=== PATIENT | female | born 1940 | race Caucasian/White ===

== ENCOUNTER 2016-10-06 11:26 | Day surgery (SDC) | payer MEDICARE, BC ==
[2016-10-06] MEDS ORDERED: LIDOCAINE 2% MDV (20MG/ML) 20ML VIAL IV ONE (14:00)
[2016-10-06] MEDS ORDERED: PROPOFOL 10 MG/ML VIAL IV ONE (14:00)
--- NOTE | 2016-10-10 10:24 | Operative Note ---
DATE OF SURGERY: 10/06/2016 Surgeon: Silvano Bray DO Referring physician: Harish Crook DO PREOPERATIVE DIAGNOSIS: Personal history of colon cancer POSTOPERATIVE DIAGNOSES: 1. Fair prep. 2. Sigmoid polyps x2. 3. Normal-appearing anastomosis. OPERATION: COLONOSCOPY AND COLD SNARE POLYPECTOMY X2 PROCEDURE: After informed consent was obtained with the patient, she was placed in the lateral decubitus position in the endoscopy suite, sedated and monitored by the Department of Anesthesia. Digital rectal exam was unremarkable. A well-lubricated PCF 180 colonoscope was inserted in the rectum and advanced through a tortuous colon to the level of the ileocolonic anastomosis. The anastomosis appeared unremarkable. The remaining right colon, transverse colon, and descending colon were unremarkable. The colon was quite tortuous and somewhat redundant. The preparation quality was fair. In the sigmoid colon there were two polyps; one approximately 4 to 5 mm in diameter, the other 5 to 6 mm in diameter, each removed with a cold snare with minimal bleeding noted at the sites. The remainder of the sigmoid colon and rectum were unremarkable. J-turn views of the anorectum were unremarkable. The endoscope was straightened, the rectal ampulla deflated. The endoscope was removed. RECOMMENDATIONS: The patient will require a repeat exam in 3 years for continued surveillance. That is, she should undergo repeat exam provided her health will allow. As always, thank you for allowing me to participate in the care of your patient. CC: Dr. Silvano ANDERSON
== END 2016-10-06 13:16 | disposition home or self-care (01) ==
LOC: HOP 11:26
PROVIDERS: ATTEND Internal Medicine Gastroenterology
DX: Z09 Encounter for follow-up examination after completed treatment for conditions other than malignant neoplasm (principal); D12.5 Benign neoplasm of sigmoid colon; J44.9 Chronic obstructive pulmonary disease, unspecified; E03.9 Hypothyroidism, unspecified

== ENCOUNTER 2017-07-08 11:39 | Observation (INO) | payer MEDICARE, BC ==
[2017-07-08] MEDS ORDERED: IPRATROPIUM/ALBUTEROL (0.5MG/3MG) NEB INH ONE (12:34)
[2017-07-08] MEDS ORDERED: PREDNISONE 20 MG TAB PO ONE (12:35)
--- NOTE | 2017-07-08 12:40 | Emergency Department Record ---
History of Present Illness - General Chief Complaint: Cough Stated Complaint: COUGH Time Seen by Provider: 07/08/17 12:21 Source: Patient Mode of Arrival: Ambulatory Limitations: No limitations - History of Present Illness Initial Comments: The patient is here due to a cough off and on for about 2 months. She has seen her PCP twice for it and first was placed on Prednisone and then last week was given AMoxicillin. Now for the last week the cough seems worse with an increased amount of green sputum. She denies any CP, fever, chills, or nausea but has been mildly SOB and very weak. MD Complaint: Cough Onset/Timin -: Month(s) - Related Data Home Medications Medication Instructions Recorded Confirmed Last Taken Albuterol Sulfate [Ventolin Hfa] 1 - 2 puff IH .EVERY 4-6 HRS PRN 07/08/1707/0807/08/17 11:00 Ipratropium/Albuterol [Duoneb] PRN 07/08/17 07/04/17 Allergies Allergy/AdvReac Type Severity Reaction Status Date / Time azithromycin Allergy Unknown DIFFICULTY Verified 07/08/17 12:09 BREATHING cefuroxime axetil Allergy Unknown DIFFICULTY Verified 07/08/17 12:09 BREATHING clarithromycin Allergy Unknown DIFFICULTY Verified 07/08/17 12:09 BREATHING codeine Allergy Unknown BLISTERS Verified 07/08/17 12:09 erythromycin base Allergy Unknown DIFFICULTY Verified 07/08/17 12:09 BREATHING hydromorphone HCl Allergy Unknown DIFFICULTY Verified 07/08/17 12:09 [From DILAUDID] BREATHING Allergies: Allergy Unknown DIFFICULTY Uncoded 05/23/16 15:40 BREATHING Travel Screening - Travel/Exposure Within Last 30 Days Have you traveled within the last 30 days?: No Review of Systems Constitutional: Reports: Malaise. Denies: Chills, Fever, Other ENT: Reports: Congestion Respiratory: Reports: Cough, Dyspnea Past Medical History - SOCIAL HISTORY Smoking Status: Former smoker Alcohol Use: None Drug Use: None - RESPIRATORY Hx Respiratory Disorders: Yes Hx Asthma: Yes Hx Bronchitis: Yes Hx COPD: Yes - CARDIOVASCULAR Hx Cardio Disorders: No - NEURO Hx Neuro Disorders: No - GI Hx GI Disorders: No - Hx Genitourinary Disorders: No - ENDOCRINE Hx Endocrine Disorders: Yes Hx Thyroid Disease: Yes - MUSCULOSKELETAL Hx Musculoskeletal Disorders: No - PSYCH Hx Psych Problems: No - HEMATOLOGY/ONCOLOGY Hx Hematology/Oncology Disorders: Yes Hx Cancer: Yes (colon) Family Medical History Any Significant Family History?: No Physical Exam - General General Appearance: Alert, Oriented x3, Cooperative, No acute distress - Head Head exam: Atraumatic, Normocephalic, Normal inspection - Eye Eye exam: Normal appearance, PERRL - ENT Throat exam: Normal inspection. negative: Tonsillar erythema, Tonsillar exudate - Neck Neck exam: Normal inspection, Full ROM. negative: Tenderness - Respiratory Respiratory exam: Decreased breath sounds. negative: Normal lung sounds bilaterally, Rhonchi, Stridor, Wheezes - Cardiovascular Cardiovascular Exam: Regular rate, Normal rhythm, Normal heart sounds - GI/Abdominal GI/Abdominal exam: Soft, Normal bowel sounds. negative: Tenderness - Extremities Extremities exam: Normal inspection, Full ROM, Normal capillary refill. negative: Tenderness Course Vital Signs 07/08/17 12:06 Temperature 99.1 F Pulse Rate 87 Respiratory 22 Rate Blood Pressure 149/81 Pulse Ox 98 - Reevaluation(s) Reevaluation #1: The patient is doing OK but still is very weak. I did discuss the finding on her lab work that her sodium is very low. Due to that fact we will order some IVF and will discuss admitting the patient with Dr. Crook. 07/08/17 13:18 Reevaluation #2: I did discuss the case with Dr. Crook and he did accept the admission. 07/08/17 13:27 Medical Decision Making - Data Complexity MDM Data: Labs Ordered and/or Reviewed, X-Ray Ordered and/or Reviewed, EKG Ordered and/or Reviewed - Lab Data Result diagrams: 07/08/17 12:45 07/08/17 12:45 - EKG Data -: EKG Interpreted by Me EKG: No Acute Changes (RSR' V1-2. Neg ischemic changes.) - Radiology Data Radiology results: Report reviewed (CXR: COPD, no acute infiltrate.) Disposition Disposition: Admit Clinical Impression: COPD exacerbation Disposition: Still a Patient at [facility] Decision to Admit: Admit from ER Decision to Admit Date: 07/08/17 Decision to Admit Time: 13:28 Accepting Physician: Ambreen Time Discussed w/Accepting Physician: 13:28 Condition: (2) Stable Time of Disposition: 13:28 Quality - Quality Measures Quality Measures: N/A - Blood Pressure Screening View Details: Yes Does Patient Have Any of the Following: No Blood Pressure Classification: Pre-Hypertensive BP Reading Systolic Measurement: 149 Diastolic Measurement: 81 Screening for High Blood Pressure: < Pre-Hypertensive BP, F/U Documented > [ G8950] Pre-Hypertensive Follow-up Interventions: Referral to alternative/primary care provider.
[2017-07-08 12:54] LABS: BASO % 0.2 % (0-6); EOS % 1.6 % (0-6); GRAN % 74.6 % (47-80); HEMATOCRIT 39.4 % (35.0-47.0); HEMOGLOBIN 13.1 gm/dl (11.6-16.0); LYMPH % 12.4 % (16-45); MEAN CELL VOLUME 81.9 fl (81-97); MEAN CORPUSCULAR HEMOGLOBIN 27.2 pg (27-33); MEAN CORPUSCULAR HGB CONC 33.2 g/dl (32-36); MONO % 11.2 % (0-9); PLATELET COUNT 287 K/uL (130-400); RED BLOOD COUNT 4.81 M/uL (3.80-5.40)
[2017-07-08 13:04] LABS: BLOOD UREA NITROGEN 11 mg/dL (8-23); CREATININE 0.5 mg/dL (0.5-0.9); EST GLOMERULAR FILTRATION RATE > 60 mL/min
[2017-07-08 13:06] LABS: GLUCOSE,RANDOM 93 mg/dL (74-109)
[2017-07-08 13:09] LABS: C-REACTIVE PROTEIN 2.08 mg/dL (<0.5)
[2017-07-08] MEDS ORDERED: 0.9 % SODIUM CHLORIDE 1000ML 1,000 ML IV ONE (13:20)
[2017-07-08] MEDS ORDERED: LEVOFLOXACIN 500MG IVPB 500 MG/100 ML BAG IVPB SCH (14:40)
[2017-07-08] MEDS ORDERED: BENZONATATE 100 MG CAPSULE PO PRN (14:40)
[2017-07-08] MEDS ORDERED: ACETAMINOPHEN 500 MG TABLET PO PRN (14:40)
[2017-07-08] MEDS ORDERED: IPRATROPIUM/ALBUTEROL (0.5MG/3MG) NEB INH SCH (14:40)
[2017-07-08] MEDS: 0.9 % SODIUM CHLORIDE 1000ML 1,000 ML IV PRN (15:00)
[2017-07-08] MEDS ORDERED: ARNUITY (FLUTICASONE FUROATE) 100MCG INH INH SCH (18:00)
[2017-07-08] MEDS: IPRATROPIUM/ALBUTEROL (0.5MG/3MG) NEB INH SCH ×2 (19:55→22:31)
[2017-07-08] MEDS ORDERED: FLUTICASONE PROPIONATE 220 MCG IH SCH (22:00)
[2017-07-09] MEDS: 0.9 % SODIUM CHLORIDE 1000ML 1,000 ML IV PRN (01:37)
[2017-07-09] MEDS ORDERED: ARNUITY (FLUTICASONE FUROATE) 100MCG INH INH SCH (06:00)
[2017-07-09] MEDS: IPRATROPIUM/ALBUTEROL (0.5MG/3MG) NEB INH SCH ×2 (06:13→10:03)
[2017-07-09 06:33] LABS: HEMATOCRIT 33.9 % (35.0-47.0); MEAN CELL VOLUME 82.1 fl (81-97); MEAN CORPUSCULAR HEMOGLOBIN 26.6 pg (27-33); MEAN CORPUSCULAR HGB CONC 32.4 g/dl (32-36); PLATELET COUNT 266 K/uL (130-400); RED BLOOD COUNT 4.13 M/uL (3.80-5.40); RED CELL DISTRIBUTION WIDTH 13.7 % (11.5-14.5); WHITE BLOOD COUNT W/O DIFF 12.2 K/uL (4.2-12.2)
[2017-07-09 06:53] LABS: ALBUMIN 3.3 g/dL (4.0-5.0); ALKALINE PHOSPHATASE 63 U/L (35-104); ALT/SGPT 12 U/L (<33); AST/SGOT 19 U/L (10.0-35.0); BLOOD UREA NITROGEN 12 mg/dL (8-23); CREATININE 0.5 mg/dL (0.5-0.9); EST GLOMERULAR FILTRATION RATE > 60 mL/min; GLUCOSE,RANDOM 106 mg/dL (74-109); TOTAL PROTEIN 6.6 g/dL (6.6-8.7)
[2017-07-09] MEDS ORDERED: LEVOTHYROXINE SODIUM 25 MCG TABLET PO SCH (07:00)
[2017-07-09] MEDS ORDERED: PREDNISONE 20 MG TAB PO SCH (08:00)
[2017-07-09] MEDS ORDERED: CALCIUM CARB/VITAMIN D 500MG/200IU PO SCH (10:00)
[2017-07-09] MEDS ORDERED: TIOTROPIUM BROMIDE 18 MCG IH SCH (10:00)
--- NOTE | 2017-07-09 13:09 | Discharge Note ---
VTE H&P Assessment - Risk for VTE Risk for VTE: No Risk Level: Very Low Risk Assessment Date: 07/09/17 Risk Assessment Time: 13:09 VTE Orders Placed or Will Be Placed: No VTE Reason for No Prophylaxis: Not Indicated Discharge Medications - Discharge Medications Prescriptions: Amoxicillin 500Mg Capsule [Amoxil] 500 mg PO TID #30 tab Prednisone [Prednisone 10Mg] 10 mg PO ASDIR #30 tab Home Medications: Ambulatory Orders Calcium Carbonate/Vitamin D3 [Caltrate 600 Plus D3 Tablet] 1 each PO DAILY tab 03/16/16 [Last Taken 05/23/16] Fluticasone Propionate [Flovent Hfa] 440 puff IH BID puff 03/16/16 [Last Taken 07/08/17 08:00] Tiotropium [place] [Spiriva] 18 mcg IH DAILY 03/16/16 [Last Taken 07/08/17 08:00 ] Levothyroxine Sodium [Synthroid] 25 mcg PO DAILY 05/23/16 [Last Taken 05/23/16] Albuterol Sulfate [Ventolin Hfa] 1 - 2 puff IH .EVERY 4-6 HRS PRN 07/08/17 [ Last Taken 07/08/17 11:00] Acetaminophen [Tylenol 500Mg Tab] 500 mg PO Q6H PRN tablet 07/09/17 [Last Taken Unknown] Amoxicillin 500Mg Capsule [Amoxil] 500 mg PO TID #30 tab 07/09/17 [Last Taken Unknown] Prednisone [Prednisone 10Mg] 10 mg PO ASDIR #30 tab 07/09/17 [Last Taken Unknown ] Discharge Note - Date Date of Discharge Note: 07/09/17 Condition: (2) Stable Referrals: Harish Crook D.O. [Primary Care Provider] - Forms: Patient Portal Access
--- NOTE | 2017-07-09 13:16 | Discharge Note ---
VTE H&P Assessment - Risk for VTE Risk for VTE: No Risk Level: Very Low Risk Assessment Date: 07/09/17 Risk Assessment Time: 13:09 VTE Orders Placed or Will Be Placed: No VTE Reason for No Prophylaxis: Not Indicated Discharge Medications - Discharge Medications Prescriptions: Amoxicillin 500Mg Capsule [Amoxil] 500 mg PO TID #30 tab Prednisone [Prednisone 10Mg] 10 mg PO ASDIR #30 tab Home Medications: Ambulatory Orders Calcium Carbonate/Vitamin D3 [Caltrate 600 Plus D3 Tablet] 1 each PO DAILY tab 03/16/16 [Last Taken 05/23/16] Fluticasone Propionate [Flovent Hfa] 440 puff IH BID puff 03/16/16 [Last Taken 07/08/17 08:00] Tiotropium [place] [Spiriva] 18 mcg IH DAILY 03/16/16 [Last Taken 07/08/17 08:00 ] Levothyroxine Sodium [Synthroid] 25 mcg PO DAILY 05/23/16 [Last Taken 05/23/16] Albuterol Sulfate [Ventolin Hfa] 1 - 2 puff IH .EVERY 4-6 HRS PRN 07/08/17 [ Last Taken 07/08/17 11:00] Acetaminophen [Tylenol 500Mg Tab] 500 mg PO Q6H PRN tablet 07/09/17 [Last Taken Unknown] Amoxicillin 500Mg Capsule [Amoxil] 500 mg PO TID #30 tab 07/09/17 [Last Taken Unknown] Benzonatate [Tessalon Perle] 100 mg PO TID PRN #30 cap 07/09/17 [Last Taken Unknown] Prednisone [Prednisone 10Mg] 10 mg PO ASDIR #30 tab 07/09/17 [Last Taken Unknown ] Discharge Note - Date Date of Discharge Note: 07/09/17 Condition: (2) Stable Prescriptions: Amoxicillin 500Mg Capsule [Amoxil] 500 mg PO TID #30 tab Benzonatate [Tessalon Perle] 100 mg PO TID PRN #30 cap PRN Reason: Cough Prednisone [Prednisone 10Mg] 10 mg PO ASDIR #30 tab Referrals: Harish Crook D.O. [Primary Care Provider] - Forms: Patient Portal Access
--- NOTE | 2017-07-09 18:57 | RADIOLOGY REPORT ---
EXAM: CHEST 2 VIEWS HISTORY: COUGH. TECHNIQUE: Frontal and lateral views of the chest were performed. COMPARISON: 05/23/2016. FINDINGS: The heart size is normal. The lungs are hyperinflated. There is underlying emphysema. No definitive infiltrate or pleural effusion. There is osteopenia. There are mild superior endplate compression fracture deformities in the thoracic spine. These are stable when compared to the prior exam. IMPRESSION: HYPERINFLATED LUNGS. NO DEFINITIVE INFILTRATE OR PLEURAL EFFUSION. JOB NUMBER: [id number] MTDD
--- NOTE | 2017-07-10 09:51 | History and Physical Report ---
DATE OF ADMISSION: 07/08/2017 Surgeon: Harish Crook DO CHIEF COMPLAINT: Cough, dyspnea, for approximately 3 to 4 days, but she has had a cough since , and she has been treated for bronchitis as an outpatient. She was started on amoxicillin 3 times a day on Monday, 4 days earlier. Came to the emergency department, evaluation by Dr. Rios, admitted to the hospital as an observation patient, started on oral Levaquin and oral prednisone, and given breathing treatments of DuoNeb every 4 hours while awake, and Tessalon Perles for the cough. PAST MEDICAL HISTORY: COPD. No oxygen home use. Hypothyroidism. She has had a history of colon cancer, being followed by Dr. Mcgee, under remission. PAST SURGICAL HISTORY: Colon resection, hysterectomy, lumpectomy, and hip surgery. MEDICATIONS ON ADMISSION: 1. Flovent inhaler 1 puff b.i.d. 2. Ventolin rescue inhaler 2 puffs q.4h. 3. Spiriva 1 puff daily. 4. Synthroid 25 mcg a day. 5. Calcium with vitamin D 1 tablet a day. 6. Tessalon Perles 100 mg 3 times a day. 7. Amoxicillin 500 mg t.i.d. 8. Albuterol nebulizer q.4h. p.r.n. ALLERGIES: AZITHROMYCIN, CEFUROXIME, CLARITHROMYCIN, CODEINE, ERYTHROMYCIN, DILAUDID. FAMILY PSYCHOSOCIAL HISTORY: No significant family history. She is a former smoker. She stopped in the year 1999. No drugs or alcohol use. REVIEW OF SYSTEMS: She has slight congestion and cough and no sore throat. CARDIOVASCULAR: No chest pain, palpitations, or arrhythmias. RESPIRATORY: She has a cough, she is short of breath with exertion. GASTROINTESTINAL: No nausea, vomiting, or diarrhea, black stools or bloody stools. GENITOURINARY: No dysuria, hematuria, frequency, or burning on urination. MUSCULOSKELETAL: She has diffuse arthritis in her joints, but ambulates around the room without difficulty. NEUROLOGIC: No CVA paralysis or paresthesias. ENDOCRINE: She has hypothyroidism. INTEGUMENT: No rash, ulcer, change in mole, or yellow skin. PHYSICAL EXAMINATION: GENERAL: Height is 5 feet 5 inches, weight is 91 pounds. VITAL SIGNS: Temperature is 98.0, blood pressure 103/55, pulse is 78, respirations are 18. Pulse OX is 95% on room air. HEENT: Pupils are equal, round, and reactive to light and accomodation. Extraocular muscles are intact. Throat is clear, nose is clear. Tympanic membranes are bee. NECK: Supple. No jugular venous distention, no hepatojugular reflux, no carotid bruits, thyroid is smooth. CARDIOVASCULAR: Regular rate and rhythm without murmurs, clicks, rubs, or gallops. RESPIRATORY: She has decreased breath sounds bilaterally. ABDOMEN: Soft, nontender, no hepatosplenomegaly, no mass or tenderness. Bowel sounds are active, no bruits. EXTREMITIES: No pitting edema, no cyanosis, no clubbing. Full range of motion. Peripheral pulses are good. BREASTS: Deferred. GYNECOLOGIC: Deferred. RECTAL: Deferred. NEUROLOGIC: Cranial nerves II through XII intact, no gross defects in sensation, normal strength, normal deep tendon reflexes equal bilaterally. Babinski's negative. MENTAL STATUS: Alert and oriented x3. IMPRESSION: 1. Acute bronchitis. 2. COPD. 3. Hyponatremia, which has resolved. Her sodium in the emergency department was 122, it is 136 this morning after a liter of fluid at 50 mL an hour. PLAN: 1. Follow up with Dr. Crook tomorrow on Monday at 10:00 a.m. We will discharge. She is doing better. 2. Prednisone taper starting at 40 mg a day for 3 days, 30 mg a day for 3 days, and 20 mg a day for 3 days, and 10 mg a day for 3 days. 3. Continue the amoxicillin 3 times a day. 4. Albuterol nebulizations q.4h. p.r.n. 5. Tessalon Perlrodrigo. 6. Continue all her home medications of Flovent, Spiriva. MTDD
--- NOTE | 2017-07-10 09:51 | Discharge Summary ---
DATE OF ADMISSION: 07/08/2017 DATE OF DISCHARGE: 07/09/2017 Observation patient. Attending physician: Harish Crook DO DISCHARGE DIAGNOSES: 1. Acute bronchitis. 2. COPD exacerbation. 3. Hyponatremia, resolved. REASON FOR HOSPITALIZATION: Cough, congestion, short of breath, evaluated by Dr. Rios in the emergency department. This 76-year-old female presented to the emergency department with a cough, congestion, short of breath, for the last 4 days, worse in the last week, however, she has had a cough on and off for about two months, and she had significant COPD. She stopped smoking in 1999. THERAPY PROVIDED: Response to therapy; the patient was given some prednisone orally 60 mg in the emergency department, 40 mg a day, Levaquin orally 500 mg, and admitted to the hospital for further evaluation and to correct her sodium, because her sodium was 122. She was given 1 liter of fluid and then 50 mL an hour through the night. Her sodium this morning was 136. She is feeling much better. She was also given DuoNeb treatments q.4h. while awake. HOSPITAL COURSE: Improved. CONDITION ON DISCHARGE: Much improved. DISCHARGE INSTRUCTIONS: 1. Follow up with Dr. Crook tomorrow at 10:00 a.m. 2. Continue the amoxicillin 500 mg t.i.d. 3. Prednisone taper 10 mg pills, 4 pills a day for 3 days, 3 pills a day for 3 days, 2 pills a day for 3 days, 1 pill a day for 3 days. 4. Flovent inhaler which she already has, twice a day. 5. Ventolin inhaler 2 puffs q.4h. or use the Albuterol nebulization q.4h. p.r.n. 6. Tessalon Perles 100 mg t.i.d. 7. Levothyroxine 25 mcg daily. 8. Spiriva once a day. 9. Calcium with vitamin D 1 a day. CC: Harish Crook DO MTDD
== END 2017-07-09 13:55 | disposition home or self-care (01) ==
LOC: ER 11:39 → MEDSURG 14:16
PROVIDERS: ADMIT Emergency Medicine; ATTEND Emergency Medicine
DX: J20.9 Acute bronchitis, unspecified (principal); J44.0 Chronic obstructive pulmonary disease with (acute) lower respiratory infection; E03.9 Hypothyroidism, unspecified; Z85.038 Personal history of other malignant neoplasm of large intestine; E87.1 Hypo-osmolality and hyponatremia; Z87.891 Personal history of nicotine dependence
CPT/HCPCS: 99285 ×2; 85025; 86140; 80048; 80053; 84443; 85027; 71046; 94640 ×4; 93005; 93010; G0378 ×2; J7512 ×2; 99220; J1956

== ENCOUNTER 2017-07-10 06:18 | Inpatient (IN) | payer MEDICARE, BC ==
[2017-07-10] MEDS ORDERED: IPRATROPIUM/ALBUTEROL (0.5MG/3MG) NEB INH ONE (06:33)
[2017-07-10 06:34] LABS: HEMATOCRIT 36.5 % (35.0-47.0); MEAN CORPUSCULAR HGB CONC 32.9 g/dl (32-36); MEAN PLATELET VOLUME 8.9 fl (7.4-10.4); PLATELET COUNT 275 K/uL (130-400); RED BLOOD COUNT 4.45 M/uL (3.80-5.40); RED CELL DISTRIBUTION WIDTH 14.2 % (11.5-14.5); WHITE BLOOD COUNT W/O DIFF 15.1 K/uL (4.2-12.2)
[2017-07-10 06:43] LABS: BLOOD UREA NITROGEN 17 mg/dL (8-23); CREATININE 0.5 mg/dL (0.5-0.9); EST GLOMERULAR FILTRATION RATE > 60 mL/min; TOTAL PROTEIN 7.2 g/dL (6.6-8.7)
[2017-07-10 06:45] LABS: GLUCOSE,RANDOM 98 mg/dL (74-109)
[2017-07-10 06:48] LABS: ALB/GLOB RATIO 1.1 (1.1-1.8); ALBUMIN 3.8 g/dL (4.0-5.0); ALKALINE PHOSPHATASE 62 U/L (35-104); ALT/SGPT 14 U/L (<33); AST/SGOT 22 U/L (10.0-35.0)
--- NOTE | 2017-07-10 06:49 | Emergency Department Record ---
History of Present Illness <Russell Rios - Last Filed: 07/10/17 07:53> - General Source: Patient Mode of Arrival: EMS Limitations: No limitations - History of Present Illness Initial Comments: 76 yo female returns to ED for evaluation of worsening VALENTE following recent admission and discharge for COPD exacerbation. Patient reports increased cough and fever symptoms this morning. Patient denies chest pain or discomfort, denies the use of oxygen at home. MD Complaint: Cough, Shortness of breath Onset/Timin -: Hour(s) Severity scale (1-10): 9 Quality: Aching Consistency: Intermittent Improves With: Rest Worsens With: Coughing Known History Of: COPD Associated Symptoms: Denies other symptoms Treatments Prior to Arrival: Oxygen - Related Data Home Oxygen Therapy: No <OWEN CAMARGO - Last Filed: 07/10/17 22:04> - General Chief Complaint: Shortness of breath Stated Complaint: VALENTE Time Seen by Provider: 07/10/17 06:38 - Related Data Previous Rx's Medication Instructions Recorded Acetaminophen [Tylenol 500Mg Tab] 500 mg PO Q6H PRN tablet 07/09/17 Amoxicillin 500Mg Capsule [Amoxil] 500 mg PO TID #30 tab 07/09/17 Benzonatate [Tessalon Perle] 100 mg PO TID PRN #30 cap 07/09/17 Prednisone [Prednisone 10Mg] 10 mg PO ASDIR #30 tab 07/09/17 Allergies Allergy/AdvReac Type Severity Reaction Status Date / Time azithromycin Allergy Unknown DIFFICULTY Verified 07/08/17 12:09 BREATHING cefuroxime axetil Allergy Unknown DIFFICULTY Verified 07/08/17 12:09 BREATHING clarithromycin Allergy Unknown DIFFICULTY Verified 07/08/17 12:09 BREATHING codeine Allergy Unknown BLISTERS Verified 07/08/17 12:09 erythromycin base Allergy Unknown DIFFICULTY Verified 07/08/17 12:09 BREATHING hydromorphone HCl Allergy Unknown DIFFICULTY Verified 07/08/17 12:09 [From DILAUDID] BREATHING Allergies: Allergy Unknown DIFFICULTY Uncoded 05/23/16 15:40 BREATHING Travel Screening - Travel/Exposure Within Last 30 Days Have you traveled within the last 30 days?: No - Travel Symptoms Symptom Screening: None <OWEN CAMARGO - Last Filed: 07/10/17 22:04> Review of Systems Constitutional: Reports: Chills, Fever. Denies: Malaise, Night sweats Eyes: Denies: Eye discharge, Eye pain ENT: Denies: Congestion, Ear pain, Epistaxis Respiratory: Reports: Cough, Dyspnea Cardiovascular: Denies: Chest pain, Dyspnea on exertion, Edema Endocrine: Denies: Fatigue, Heat or cold intolerance Gastrointestinal: Denies: Abdominal pain, Nausea, Vomiting Genitourinary: Denies: Incontinence, Retention Musculoskeletal: Denies: Arthralgia, Back pain, Gout, Joint swelling Skin: Denies: Bruising, Change in color Neurological: Denies: Abnormal gait, Confusion, Headache, Seizure Psychiatric: Denies: Anxiety Hematological/Lymphatic: Denies: Anemia, Blood Clots <OWEN CAMARGO - Last Filed: 07/10/17 22:04> Past Medical History - SOCIAL HISTORY Smoking Status: Former smoker - RESPIRATORY Hx Respiratory Disorders: Yes Hx Asthma: Yes Hx Bronchitis: Yes Hx COPD: Yes - CARDIOVASCULAR Hx Cardio Disorders: No - NEURO Hx Neuro Disorders: No - GI Hx GI Disorders: No Comment:: colon CA-removed 12 inches and did oral chemo - Hx Genitourinary Disorders: No - ENDOCRINE Hx Endocrine Disorders: Yes Hx Thyroid Disease: Yes - MUSCULOSKELETAL Hx Musculoskeletal Disorders: No - PSYCH Hx Psych Problems: No - HEMATOLOGY/ONCOLOGY Hx Hematology/Oncology Disorders: Yes Hx Cancer: Yes (colon) <OWEN CAMARGO - Last Filed: 07/10/17 22:04> Family Medical History Any Significant Family History?: Yes Hx Heart Disease: Father, Mother, Brother/Sister Hx HTN: Mother <OWEN CAMARGO - Last Filed: 07/10/17 22:04> Physical Exam - General General Appearance: Alert, Oriented x3, Cooperative, Moderate distress, Other ( cachetic appearing on examination) Limitations: No limitations - Head Head exam: Atraumatic, Normocephalic, Normal inspection Head exam detail: negative: Abrasion, Contusion - Eye Eye exam: Normal appearance. negative: Conjunctival injection, Periorbital swelling, Periorbital tenderness, Scleral icterus - ENT Ear exam: negative: Auricular hematoma, Auricular trauma Nasal Exam: negative: Active bleeding, Discharge, Dried blood, Foreign body Mouth exam: negative: Drooling, Laceration, Muffled voice, Tongue elevation - Neck Neck exam: Normal inspection. negative: Meningismus, Tenderness - Respiratory Respiratory exam: Decreased breath sounds, Respiratory distress. negative: Rales, Rhonchi, Stridor, Wheezes - Cardiovascular Cardiovascular Exam: Regular rate, Normal rhythm, Normal heart sounds - GI/Abdominal GI/Abdominal exam: Soft. negative: Rebound, Rigid, Tenderness - Rectal Rectal exam: Deferred - exam: Deferred - Extremities Extremities exam: Normal inspection. negative: Calf tenderness, Pedal edema, Tenderness - Back Back exam: Denies: CVA tenderness (R), CVA tenderness (L) - Neurological Neurological exam: Alert, Normal gait, Oriented X3 - Psychiatric Psychiatric exam: Normal affect, Normal mood - Skin Skin exam: Normal color. negative: Abrasion Type of lesion: negative: abrasion <OWEN CAMARGO - Last Filed: 07/10/17 22:04> Course Vital Signs 07/10/17 07/10/17 06:22 06:50 Temperature 101.5 F H Pulse Rate 98 H 108 H Respiratory 20 20 Rate Blood Pressure 127/69 Pulse Ox 95 94 L - Reevaluation(s) Reevaluation #2: The patient is doing better but is still coughing. Her fever has improved with Tylenol. On xray it does appear that she does now have a demonstrable infiltrate at the L base and possibly the R also. Due to that fact and also that her cough and fever are worse I did recommend hospital admission and the patient agreed. I did discuss the case with Dr. Crook and he does agree to the plan for admission. 07/10/17 07:54 <Russell Rios - Last Filed: 07/10/17 07:53> Vital Signs 07/10/17 06:22 Temperature 101.5 F H Pulse Rate 98 H Respiratory 20 Rate Blood Pressure 127/69 Pulse Ox 95 - Reevaluation(s) Reevaluation #1: 07/10/17 06:47 Patient was seen and examined, initial orders placed. Case was discussed with oncoming provider, will assume care and disposition at this time. <OWEN CAMARGO - Last Filed: 07/10/17 22:04> Medical Decision Making - Data Complexity MDM Data: Labs Ordered and/or Reviewed, X-Ray Ordered and/or Reviewed, EKG Ordered and/or Reviewed - Lab Data Result diagrams: 07/10/17 06:29 07/10/17 06:29 Lab Results 02/05/1507/10/17 07/10/17 Range/Units 06:29 06:29 06:29 WBC 15.1 H (4.2-12.2) K/uL RBC 4.45 (3.80-5.40) M/uL Hgb 12.0 (11.6-16.0) gm/dl Hct 36.5 (35.0-47.0) % MCV 82.0 (81-97) fl MCH 27.0 (27-33) pg MCHC 32.9 (32-36) g/dl RDW 14.2 (11.5-14.5) % Plt Count 275 (130-400) K/uL MPV 8.9 (7.4-10.4) fl Neutrophils % 82.0 H (47-80) % Band Neutrophils % 2.0 (0-5) % Eosinophils % Not Reportable Basophils % Not Reportable Lymphocytes 6.0 L (16-45) % Monocytes 10.0 H (0-9) % Basophils 0.0 (0-6) % Eosinophil Count 0.0 (0-6) % Sodium 131 L (136-145) mmol/L Potassium 4.0 (3.4-4.5) mmol/L Chloride 96 L (98-107) mmol/L Carbon Dioxide 23.0 (22-29) mmol/L Anion Gap 12.0 (7-16) BUN 17 (8-23) mg/dL Creatinine 0.5 (0.5-0.9) mg/dL Estimated GFR > 60 mL/min Random Glucose 98 (74-109) mg/dL Calcium 8.6 L (8.8-10.2) mg/dL Total Bilirubin 0.30 (0.2-1.0) mg/dL AST 22 (10.0-35.0) U/L ALT 14 (<33) U/L Alkaline Phosphatase 62 (35-104) U/L Troponin T < 0.010 (0-0.010) ng/mL Total Protein 7.2 (6.6-8.7) g/dL Albumin 3.8 L (4.0-5.0) g/dL Globulin 3.4 (1.4-4.8) gm/dL Albumin/Globulin Ratio 1.1 (1.1-1.8) Influenza Type A Ag (NEGATIVE) Influenza Type B Ag (NEGATIVE) 07/10/17 Range/Units 06:43 WBC (4.2-12.2) K/uL RBC (3.80-5.40) M/uL Hgb (11.6-16.0) gm/dl Hct (35.0-47.0) % MCV (81-97) fl MCH (27-33) pg MCHC (32-36) g/dl RDW (11.5-14.5) % Plt Count (130-400) K/uL MPV (7.4-10.4) fl Neutrophils % (47-80) % Band Neutrophils % (0-5) % Eosinophils % Basophils % Lymphocytes (16-45) % Monocytes (0-9) % Basophils (0-6) % Eosinophil Count (0-6) % Sodium (136-145) mmol/L Potassium (3.4-4.5) mmol/L Chloride (98-107) mmol/L Carbon Dioxide (22-29) mmol/L Anion Gap (7-16) BUN (8-23) mg/dL Creatinine (0.5-0.9) mg/dL Estimated GFR mL/min Random Glucose (74-109) mg/dL Calcium (8.8-10.2) mg/dL Total Bilirubin (0.2-1.0) mg/dL AST (10.0-35.0) U/L ALT (<33) U/L Alkaline Phosphatase (35-104) U/L Troponin T (0-0.010) ng/mL Total Protein (6.6-8.7) g/dL Albumin (4.0-5.0) g/dL Globulin (1.4-4.8) gm/dL Albumin/Globulin Ratio (1.1-1.8) Influenza Type A Ag Negative (NEGATIVE) Influenza Type B Ag Negative (NEGATIVE) - EKG Data -: EKG Interpreted by Me EKG: No Acute Changes, Unchanged From Previous - Radiology Data Radiology results: Report reviewed (CXR: L lower lob inifltrate with possible early RLL infiltrate.) <Russell Rios - Last Filed: 07/10/17 07:53> - Lab Data Result diagrams: 07/10/17 06:29 07/10/17 06:29 Lab Results 07/10/17 Range/Units 06:29 WBC 15.1 H (4.2-12.2) K/uL RBC 4.45 (3.80-5.40) M/uL Hgb 12.0 (11.6-16.0) gm/dl Hct 36.5 (35.0-47.0) % MCV 82.0 (81-97) fl MCH 27.0 (27-33) pg MCHC 32.9 (32-36) g/dl RDW 14.2 (11.5-14.5) % Plt Count 275 (130-400) K/uL MPV 8.9 (7.4-10.4) fl Neutrophils % 82.0 H (47-80) % Band Neutrophils % 2.0 (0-5) % Eosinophils % Not Reportable Basophils % Not Reportable Lymphocytes 6.0 L (16-45) % Monocytes 10.0 H (0-9) % Basophils 0.0 (0-6) % Eosinophil Count 0.0 (0-6) % <OWEN CAMARGO - Last Filed: 07/10/17 22:04> Disposition Disposition: Admit Decision to Admit: Admit from ER Decision to Admit Date: 07/10/17 Decision to Admit Time: 07:56 Accepting Physician: Ambreen Time Discussed w/Accepting Physician: 07:56 Time of Disposition: 07:56 <Russell Rios - Last Filed: 07/10/17 07:53> <OWEN CAMARGO - Last Filed: 07/10/17 22:04> Clinical Impression: Pneumonia Qualifiers: Pneumonia type: due to unspecified organism Laterality: unspecified laterality Lung location: unspecified part of lung Qualified Code(s): J18.9 - Pneumonia, unspecified organism Disposition: Home, Self-Care Condition: (2) Stable Quality - Blood Pressure Screening Does Patient Have Any of the Following: No Blood Pressure Classification: Pre-Hypertensive BP Reading Systolic Measurement: 127 Diastolic Measurement: 69 Screening for High Blood Pressure: < Pre-Hypertensive BP, F/U Documented > [ G8950] <Russell Rios - Last Filed: 07/10/17 07:53> - Quality Measures Quality Measures: N/A - Blood Pressure Screening Blood Pressure Classification: Pre-Hypertensive BP Reading Systolic Measurement: 127 Diastolic Measurement: 69 Screening for High Blood Pressure: < Pre-Hypertensive BP, F/U Documented > [ G8950] Pre-Hypertensive Follow-up Interventions: Referral to alternative/primary care provider. <OWEN CAMARGO - Last Filed: 07/10/17 22:04>
[2017-07-10] MEDS ORDERED: ACETAMINOPHEN 325 MG TAB PO ONE (06:51)
[2017-07-10 06:59] LABS: INFLUENZA A NEGATIVE (NEGATIVE); INFLUENZA B NEGATIVE (NEGATIVE)
[2017-07-10] MEDS ORDERED: CEFTRIAXONE SODIUM 1 GM in 0.9 % SODIUM CHLORIDE 100ML 100 ML IVPB ONE (07:37)
[2017-07-10] MEDS ORDERED: LEVOFLOXACIN/D5W 750 MG/150 ML BAG IVPB ONE (07:38)
--- NOTE | 2017-07-10 08:36 | RADIOLOGY REPORT ---
EXAM: CHEST, TWO VIEWS HISTORY: WOKE WITH COUGH, CHEST PAIN, AND DIFFICULTY IN BREATHING. TECHNIQUE: Upright AP and lateral views of the chest were obtained. Comparison: Two view chest radiographic examination dated 07/08/17 at 13:01. FINDINGS: The heart is not enlarged. No pulmonary venous hypertension is seen. The aortic knob is atherosclerotic. The lungs are hyperinflated consistent with COPD. There are new mixed reticular and alveolar opacities within the left lung base most pronounced in the retrocardiac region suspicious for infiltrate or atelectasis. New subtle reticulonodular opacities are also noted within the right base. No definite new costophrenic angle blunting or pneumothorax. IMPRESSION: 1. HYPERINFLATION OF THE LUNGS REDEMONSTRATED CONSISTENT WITH COPD. 2. NEW AIR SPACE OPACITIES WITHIN THE LEFT LUNG BASES SUSPICIOUS FOR PNEUMONIA AND/OR ATELECTASIS. NEW SUBTLE RETICULONODULAR OPACITY PROMINENCE WITHIN THE LATERAL RIGHT LUNG BASE. THIS PATTERN CAN BE SEEN WITH INFLAMMATION/INFECTION OF SMALL AIRWAYS. JOB NUMBER: [id number] MTDD
[2017-07-10] MEDS ORDERED: BENZONATATE 100 MG CAPSULE PO PRN (08:46)
[2017-07-10] MEDS ORDERED: 0.9 % SODIUM CHLORIDE 1000ML 1,000 ML IV PRN (08:46)
[2017-07-10] MEDS ORDERED: ACETAMINOPHEN 500 MG TABLET PO PRN (08:46)
[2017-07-10] MEDS ORDERED: PNEUM 13-VAL/PF 0.5 ML IM ONE (09:31)
[2017-07-10] MEDS ORDERED: TIOTROPIUM BROMIDE 18 MCG IH SCH (10:00)
[2017-07-10] MEDS ORDERED: METHYLPREDNISOLONE PF 125MG/VIAL IVP SCH (10:00)
[2017-07-10] MEDS: ARNUITY (FLUTICASONE FUROATE) 100MCG INH INH SCH (10:41)
[2017-07-10] MEDS: IPRATROPIUM/ALBUTEROL (0.5MG/3MG) NEB INH SCH ×4 (10:41→22:09)
[2017-07-10 11:16] LABS: URINE APPEARANCE CLEAR; URINE BILIRUBIN NEGATIVE (NEGATIVE); URINE BLOOD NEGATIVE (NEGATIVE); URINE COLOR YELLOW; URINE GLUCOSE (UA) NEGATIVE (NEGATIVE); URINE KETONE NEGATIVE (NEGATIVE); URINE LEUKOCYTE ESTERASE NEGATIVE (NEGATIVE); URINE NITRITE NEGATIVE (NEGATIVE); URINE PROTEIN NEGATIVE (NEGATIVE); URINE UROBILINOGEN 0.2 E.U./dL (0.20 - 1.00)
[2017-07-10] MEDS: METHYLPREDNISOLONE SOD 40MG/VIAL IVP SCH ×2 (11:29→22:03)
[2017-07-10] MEDS: LEVOTHYROXINE SODIUM 25 MCG TABLET PO SCH (11:30)
[2017-07-10] MEDS: 0.9 % SODIUM CHLORIDE 1000ML 1,000 ML IV ONE (14:46)
[2017-07-11] MEDS: IPRATROPIUM/ALBUTEROL (0.5MG/3MG) NEB INH SCH ×5 (05:57→21:36)
[2017-07-11] MEDS: LEVOTHYROXINE SODIUM 25 MCG TABLET PO SCH (06:12)
[2017-07-11] MEDS: METHYLPREDNISOLONE SOD 40MG/VIAL IVP SCH ×3 (06:12→22:55)
[2017-07-11 06:44] LABS: BASO % 0.1 % (0-6); HEMATOCRIT 38.7 % (35.0-47.0); HEMOGLOBIN 12.6 gm/dl (11.6-16.0); LYMPH % 6.6 % (16-45); MEAN CELL VOLUME 82.7 fl (81-97); MEAN CORPUSCULAR HEMOGLOBIN 26.9 pg (27-33); MEAN CORPUSCULAR HGB CONC 32.6 g/dl (32-36); MEAN PLATELET VOLUME 9.2 fl (7.4-10.4); MONO % 3.7 % (0-9); PLATELET COUNT 279 K/uL (130-400); RED BLOOD COUNT 4.68 M/uL (3.80-5.40); RED CELL DISTRIBUTION WIDTH 14.3 % (11.5-14.5); WHITE BLOOD COUNT W/O DIFF 12.2 K/uL (4.2-12.2)
[2017-07-11 07:00] LABS: PLATELET ESTIMATE NORMAL (NORMAL)
[2017-07-11 07:06] LABS: ALBUMIN 3.7 g/dL (4.0-5.0); ALKALINE PHOSPHATASE 78 U/L (35-104); ALT/SGPT 16 U/L (<33); AST/SGOT 23 U/L (10.0-35.0); BLOOD UREA NITROGEN 13 mg/dL (8-23); CREATININE 0.5 mg/dL (0.5-0.9); EST GLOMERULAR FILTRATION RATE > 60 mL/min; GLUCOSE,RANDOM 142 mg/dL (74-109); TOTAL PROTEIN 7.4 g/dL (6.6-8.7)
[2017-07-11] MEDS ORDERED: LEVOFLOXACIN/D5W 750 MG/150 ML BAG IVPB SCH (08:00)
[2017-07-11] MEDS: LEVOFLOXACIN 500MG IVPB 500 MG/100 ML BAG IVPB SCH (08:03)
[2017-07-11] MEDS: ARNUITY (FLUTICASONE FUROATE) 100MCG INH INH SCH (10:37)
[2017-07-11] MEDS ORDERED: DIPHENHYDRAMINE HCL 25 MG CAPSULE PO PRN (11:38)
--- NOTE | 2017-07-11 12:25 | Inpatient Certification ---
Inpatient Certification Admit to inpatient care: Based on my medical assessment, after consideration of patient's risk factors (age, co-morbidities and patient presenting symptoms and acuity), I expect that this patient will remain in the hospital greater than or equal to two midnights and that the services needed warrant inpatient care because:pneumonia and copd Patient Risk Factors: [] Estimated length of stay: [3 days] The patient may reasonably be expected to be discharged or transferred to a hospital within 96 hours after admission to [facility]. Services needed: [IV antibiotics and IV solumedrol and breathing treatnents] Post hospital care (if known): [] I certify that my determination is in accordance with my understanding of Medicare requirements for reasonable and necessary inpatient services. 07/11/17 12:24
[2017-07-11] MEDS: ENOXAPARIN 40 MG/0.4 ML SYR SQ SCH (12:45)
[2017-07-11] MEDS: 0.9 % SODIUM CHLORIDE 1000ML 1,000 ML IV ONE (13:50)
[2017-07-11] MEDS ORDERED: PHENOL SORE THROAT SPRAY 177 ML BTL MM PRN (14:40)
[2017-07-12] MEDS: IPRATROPIUM/ALBUTEROL (0.5MG/3MG) NEB INH SCH ×5 (06:01→21:56)
[2017-07-12] MEDS: LEVOTHYROXINE SODIUM 25 MCG TABLET PO SCH (06:40)
[2017-07-12] MEDS: METHYLPREDNISOLONE SOD 40MG/VIAL IVP SCH (06:41)
[2017-07-12] MEDS: LEVOFLOXACIN 500MG IVPB 500 MG/100 ML BAG IVPB SCH (07:43)
[2017-07-12] MEDS: ENOXAPARIN 40 MG/0.4 ML SYR SQ SCH (09:23)
[2017-07-12] MEDS: ARNUITY (FLUTICASONE FUROATE) 100MCG INH INH SCH (10:17)
[2017-07-12] MEDS ORDERED: PREDNISONE 20 MG TAB PO ONE (10:48)
--- NOTE | 2017-07-12 11:11 | History and Physical Report ---
DATE: 07/10/2017 CHIEF COMPLAINT: Cough, congestion. HISTORY OF PRESENT ILLNESS: This 76-year-old female came into the emergency department on 07/08/2017, was just recently discharged after one-day observation for bronchitis and she got worse, so she returned to the emergency department. She was evaluated by Dr. Rios, admitted to the hospital for further evaluation. She was seen in the hospital on 07/08/2017, admitted for observation, discharged on 07/09/2017, came back on 07/10/2017. Seen by Dr. Whitmore and admitted to the hospital for increased dyspnea and cough with a new infiltrate on the chest x-ray. The patient denies chest pain. The patient has known history of severe COPD. PAST MEDICAL HISTORY: COPD with no oxygen home use, hypothyroidism, history of colon cancer being followed by Dr. Estevez and in remission. PAST SURGICAL HISTORY: Colon resection, hysterectomy, lumpectomy, hip surgery. MEDICATIONS: 1. Flovent 1 puff b.i.d. 2. Ventolin rescue inhaler 2 puffs q.4 h. 3. Spiriva 1 puff daily. 4. Synthroid 25 mcg a day. 5. Calcium with vitamin D 1 a day. 6. Tessalon Perles 100 mg t.i.d. 7. Amoxicillin 500 mg t.i.d. 8. Albuterol nebulizer q.4 h. p.r.n. ALLERGIES: AZITHROMYCIN, CEFUROXIME, CLARITHROMYCIN, CODEINE, ERYTHROMYCIN, DILAUDID. FAMILY/PSYCHOSOCIAL HISTORY: No significant family history. She is a former smoker. She stopped in the year 1999. No drug or alcohol use. REVIEW OF SYSTEMS: HEENT: She has slight congestion and cough which has gotten worse since she went home 2 days ago. No sore throat. Cardiovascular: No chest pain, palpitations, or arrhythmia. Respiratory: She has a cough, shortness of breath, some wheezing. Gastrointestinal: No nausea, vomiting, diarrhea, black stools, or bloody stools. Genitourinary: No dysuria, hematuria, frequency, or burning on urination. Musculoskeletal: She has diffuse arthritis in her joints but ambulates around the room without difficulty. Neurological: No CVA, paralysis, or paresthesias. Endocrine: She has hypothyroidism. Integument: No rash, ulcers, change in moles, or yellow skin. PHYSICAL EXAMINATION: VITALS: Height 5 feet 5 inches, weight 91 pounds. Temperature 98.1, pulse 97, blood pressure 121/72, respiratory rate 18, pulse ox 94% on room air. She did have a temperature in the emergency department that was 101.5. HEENT: Pupils are equal, round, and reactive to light and accommodation. Extraocular muscles are intact. Throat is clear. Nose is clear. Tympanic membranes are bee. NECK: Supple. No jugular venous distention. No hepatojugular reflux. No carotid bruits. Thyroid is smooth. CARDIOVASCULAR: Regular rate and rhythm without murmurs, clicks, rubs, or gallops. RESPIRATORY: She is wheezing with deep inspiration and coughing. ABDOMEN: Soft, nontender. No hepatosplenomegaly, no masses, no tenderness. Bowel sounds are active. No bruits. EXTREMITIES: No pitting edema. No cyanosis, no clubbing. Full range of motion. Peripheral pulses are good. BREASTS: Deferred. GYNECOLOGICAL: Exam deferred. RECTAL: Exam deferred. NEUROLOGIC: Cranial nerves II-XII intact. No gross defects. Sensation normal, strength normal. Deep tendon reflexes equal bilaterally with Babinski negative. MENTAL STATUS: Alert and oriented x3. IMPRESSION: 1. Acute pneumonia left lower lobe. 2. Chronic obstructive pulmonary disease exacerbation. 3. Hypothyroidism. 4. History of colon cancer in remission. PLAN: IV Solu-Medrol 60 mg q.8 h., Levaquin 500 mg a day, DuoNeb q.4 h. while awake, Lovenox 40 mg subcu for DVT prophylaxis. INPATIENT CERTIFICATION: Admit to inpatient care. Based on my medical assessment, after consideration of patient's risk factors, age, comorbidities, and patient's presenting symptoms and acuity, I expect that this patient will remain in the hospital greater than or equal to 2 midnights and that the services needed warrant inpatient care because of breathing treatments, IV Levaquin, and IV Solu-Medrol. Estimated length of stay is 3 days. The patient may reasonably be expected to be discharged or transferred to a hospital within 96 hours after admission to [facility]. I certify that my determination is in accordance with my understanding of Medicare requirements for reasonable and necessary inpatient services. JUSTIN
[2017-07-12] MEDS: PREDNISONE 20 MG TAB PO SCH (18:18)
[2017-07-13] MEDS: IPRATROPIUM/ALBUTEROL (0.5MG/3MG) NEB INH SCH ×2 (05:13→10:03)
[2017-07-13] MEDS: LEVOTHYROXINE SODIUM 25 MCG TABLET PO SCH ×2 (05:26→06:26)
[2017-07-13] MEDS ORDERED: LEVOFLOXACIN 500 MG TABLET PO SCH (06:00)
--- NOTE | 2017-07-13 07:42 | Discharge Note ---
VTE H&P Assessment - Risk for VTE Risk for VTE: Yes Risk Level: Moderate Risk Assessment Date: 07/10/17 Risk Assessment Time: 14:00 VTE Orders Placed or Will Be Placed: Yes VTE Reason for No Prophylaxis: Not Indicated Discharge Medications - Discharge Medications Prescriptions: Amoxicillin/Potassium Clav [Augmentin 875Mg/125Mg] 1 each PO BID #10 tablet Benzonatate [Tessalon Perles] 100 mg PO TID PRN #30 capsule PRN Reason: Cough Nystatin 5 ml PO QID #200 ml Prednisone [Prednisone 10Mg] 10 mg PO ASDIR #30 tab Home Medications: Ambulatory Orders Calcium Carbonate/Vitamin D3 [Caltrate 600 Plus D3 Tablet] 1 each PO DAILY tab 03/16/16 [Last Taken 05/23/16] Tiotropium [place] [Spiriva] 18 mcg IH DAILY 03/16/16 [Last Taken 07/08/17 08:00 ] Levothyroxine Sodium [Synthroid] 25 mcg PO DAILY 05/23/16 [Last Taken 05/23/16] Albuterol Sulfate [Ventolin Hfa] 1 - 2 puff IH .EVERY 4-6 HRS PRN 07/08/17 [ Last Taken 07/08/17 11:00] Acetaminophen [Tylenol 500Mg Tab] 500 mg PO Q6H PRN tablet 07/09/17 [Last Taken Unknown] Benzonatate [Tessalon Perle] 100 mg PO TID PRN #30 cap 07/09/17 [Last Taken Unknown] Amoxicillin/Potassium Clav [Augmentin 875Mg/125Mg] 1 each PO BID #10 tablet [Last Taken Unknown] Benzonatate [Tessalon Perles] 100 mg PO TID PRN #30 capsule 07/13/17 [Last Taken Unknown] Fluticasone Propionate [Flovent Hfa] 2 puff IH BID #0 puff 07/13/17 [Last Taken 07/08/17 08:00] Nystatin 5 ml PO QID #200 ml 07/13/17 [Last Taken Unknown] Prednisone [Prednisone 10Mg] 10 mg PO ASDIR #30 tab 07/13/17 [Last Taken Unknown ] Discharge Note - Date Date of Discharge Note: 07/13/17 Disposition: Home, Self-Care Condition: (2) Stable Additional Instructions: follow up with Dr. Ambreen coelho afternoon use albuterol neb ulizer every four hours use spiriva 2 puff daily prednisone pill 4 pills daily for 3 days than 3 pills daily for 3 days than 2 pills daily times 3 pills than 1 pill a day till gone. nystatin swish and swallow four times a day for 10 days Forms: Patient Portal Access Activity at Discharge: Increase Activity as Tolerated Diet at Discharge: Low Salt Diet
[2017-07-13] MEDS: PREDNISONE 20 MG TAB PO SCH (07:46)
[2017-07-13] MEDS: ENOXAPARIN 40 MG/0.4 ML SYR SQ SCH (09:16)
[2017-07-13] MEDS ORDERED: AMOXICILLIN/POTASSIUM CLAV 875MG/125MG TABLET PO SCH (10:00)
[2017-07-13] MEDS ORDERED: NYSTATIN 100,000 UNITS/ML 5ML CUP PO SCH (10:00)
[2017-07-13] MEDS: ARNUITY (FLUTICASONE FUROATE) 100MCG INH INH SCH (10:03)
== END 2017-07-13 11:00 | disposition home or self-care (01) | DRG 195 ==
LOC: ER 06:18 → MEDSURG 08:20
PROVIDERS: ADMIT Emergency Medicine; ATTEND Emergency Medicine
DX: J18.9 Pneumonia, unspecified organism (principal); Z87.891 Personal history of nicotine dependence; E03.9 Hypothyroidism, unspecified; Z85.038 Personal history of other malignant neoplasm of large intestine; J44.9 Chronic obstructive pulmonary disease, unspecified; T37.8X5A Adverse effect of other specified systemic anti-infectives and antiparasitics, initial encounter; B37.9 Candidiasis, unspecified; Y92.230 Patient room in hospital as the place of occurrence of the external cause
CPT/HCPCS: 99285 ×2; 96365; 80053; 87400; 84484; 85027; 71046; 94640; 93005; 93010; J1956; 81003; 90670; 94667; 99223; 99233; 99239; J1650; J2920; J7512

== ENCOUNTER 2017-07-20 15:31 | Inpatient (IN) | payer MEDICARE, BC ==
[2017-07-20] MEDS ORDERED: 0.9 % SODIUM CHLORIDE 1,000 ML BAG IV ONE (15:32)
[2017-07-20] MEDS ORDERED: ONDANSETRON HCL IV 4 MG/2 ML VIAL IVP ONE (15:32)
--- NOTE | 2017-07-20 15:40 | Emergency Department Record ---
History of Present Illness - General Chief complaint: Weakness Stated complaint: WEAKNESS/DEHYDRATION Time Seen by Provider: 07/20/17 15:32 Source: Patient, Family Mode of Arrival: Ambulatory Limitations: No limitations - History of Present Illness Initial comments: 76 yo female presents with weakness, nausea, dry heaves that started this morning. She is concerned that she is dehydrated. She reports she was recently admitted to the hospital for pneumonia. She still reports the cough seems to have returned today. No fever. The onset of he current symptoms was this morning very early. She additionally reports burning with urination. This started about 2 days prior. She has had some bloating and constipation as well. Last BM was 2 days ago. No swelling or calf pain. She feels weak all over. Dr Crook is her PCP. MD Complaint: Generalized weakness -: Days(s) (1) Location: Generalized Severity: Moderate Quality: Other Consistency: Constant Improves with: None Worsens with: Other (nausea and vomiting) Context: Recent illness Associated Symptoms: Other (nausea, vomiting, pain with urination) - [place] Coma Scale Eye Response: (4) Open spontaneously Motor Response: (6) Obeys commands Verbal Response: (5) Oriented [place] Total: 15 - Related Data Previous Rx's Medication Instructions Recorded Acetaminophen [Tylenol 500Mg Tab] 500 mg PO Q6H PRN tablet 07/09/17 Benzonatate [Tessalon Perles] 100 mg PO TID PRN #30 capsule 07/13/17 Fluticasone Propionate [Flovent 2 puff IH BID #0 puff 07/13/17 Hfa] Nystatin 5 ml PO QID #200 ml 07/13/17 Prednisone [Prednisone 10Mg] 10 mg PO ASDIR #30 tab 07/13/17 Allergies Allergy/AdvReac Type Severity Reaction Status Date / Time azithromycin Allergy Unknown DIFFICULTY Verified 07/20/17 15:33 BREATHING cefuroxime axetil Allergy Unknown DIFFICULTY Verified 07/20/17 15:33 BREATHING clarithromycin Allergy Unknown DIFFICULTY Verified 07/20/17 15:33 BREATHING codeine Allergy Unknown BLISTERS Verified 07/20/17 15:33 erythromycin base Allergy Unknown DIFFICULTY Verified 07/20/17 15:33 BREATHING hydromorphone HCl Allergy Unknown DIFFICULTY Verified 07/20/17 15:33 [From DILAUDID] BREATHING Allergies: Allergy Unknown DIFFICULTY Uncoded 12/26/16 15:40 BREATHING Review of Systems Constitutional: Reports: Weakness. Denies: Chills, Fever, Malaise Eyes: Denies: Eye discharge, Eye pain, Photophobia, Vision change ENT: Reports: Congestion. Denies: Ear pain Respiratory: Reports: As per HPI, Cough. Denies: Dyspnea, Hemoptysis, Stridor Cardiovascular: Denies: Chest pain, Palpitations, Syncope Endocrine: Reports: As per HPI, Fatigue Gastrointestinal: Reports: As per HPI, Constipation, Nausea, Vomiting. Denies: Abdominal pain, Diarrhea Genitourinary: Reports: Dysuria, Frequency. Denies: Hematuria Musculoskeletal: Denies: Arthralgia, Back pain, Myalgia, Neck pain Skin: Denies: Bruising, Change in color, Rash Neurological: Denies: Headache, Numbness, Weakness Psychiatric: Denies: Anxiety Hematological/Lymphatic: Denies: Blood Clots, Easy bleeding, Easy bruising, Swollen glands Past Medical History - SOCIAL HISTORY Smoking Status: Former smoker - RESPIRATORY Hx Respiratory Disorders: Yes Hx Asthma: Yes Hx Bronchitis: Yes Hx COPD: Yes - CARDIOVASCULAR Hx Cardio Disorders: No - NEURO Hx Neuro Disorders: No - GI Hx GI Disorders: No Comment:: colon CA-removed 12 inches and did oral chemo - Hx Genitourinary Disorders: No - ENDOCRINE Hx Endocrine Disorders: Yes Hx Thyroid Disease: Yes - MUSCULOSKELETAL Hx Musculoskeletal Disorders: No - PSYCH Hx Psych Problems: No - HEMATOLOGY/ONCOLOGY Hx Hematology/Oncology Disorders: Yes Hx Cancer: Yes (colon) Family Medical History Hx Heart Disease: Father, Mother, Brother/Sister Hx HTN: Mother Physical Exam - General General Appearance: Alert, Oriented x3, Cooperative, No acute distress Limitations: No limitations - Head Head exam: Normal inspection - Eye Eye exam: Normal appearance, PERRL. negative: Conjunctival injection, Periorbital swelling - ENT ENT exam: Normal exam, Mucous membranes dry (mild), Normal orophraynx (No thrush visible at this time) Ear exam: Normal external inspection Nasal Exam: Normal inspection Mouth exam: Normal external inspection, Tongue normal. negative: Drooling, Muffled voice Teeth exam: Normal inspection. negative: Dental caries Throat exam: Normal inspection. negative: Tonsillar erythema, Tonsillar exudate - Neck Neck exam: Normal inspection, Full ROM. negative: Tenderness - Respiratory Respiratory exam: Decreased breath sounds, Rhonchi (few scattered), Other (Non labored lungs). negative: Accessory muscle use, Prolonged expiratory, Respiratory distress - Cardiovascular Cardiovascular Exam: Regular rate, Normal rhythm, Normal heart sounds - GI/Abdominal GI/Abdominal exam: Soft. negative: Rebound, Rigid, Tenderness - Rectal Rectal exam: Deferred - exam: Deferred - Extremities Extremities exam: Normal inspection, Full ROM, Normal capillary refill. negative: Pedal edema, Tenderness - Back Back exam: Reports: Normal inspection, Full ROM. Denies: CVA tenderness (R), CVA tenderness (L), Muscle spasm, Rash noted, Tenderness - Neurological Neurological exam: Alert, Normal gait, Oriented X3 - Psychiatric Psychiatric exam: Normal affect, Normal mood - Skin Skin exam: Dry, Intact, Normal color, Warm Course - Reevaluation(s) Reevaluation #1: 07/20/17 15:38 EMR was reviewed. The patient was diagnosed with a LLQ pneumonia. She has had thrush after starting antibiotics. No home oxygen requirement. 07/20/17 16:17 The UA was reviewed. N- and LE- 07/20/17 16:22 The WBC count is 21 on the CBC 07/20/17 16:27 The CXR was reviewed No new or acute changes. 07/20/17 16:33 Given her elevated WBC count, urination symptoms, abdominal discomfort earlier but normal UA, CT scan ordered. 07/20/17 16:49 No acute changes on the CMP 07/20/17 17:41 The patient tolerated the PO contrast very well. No nausea or pain. 07/20/17 19:[address] of the abdomen was reviewed. Mild increase in R base infiltrate not present on CXR, constipation noted. Numerous chronic changes as noted see full report. 07/20/17 19:08 Given her return of dehydration, cough, elevation of WBC to 21, and new infiltrate in the right base recommend admission for IV antibiotics and IVF Medical Decision Making - Lab Data Result diagrams: 07/20/17 15:47 07/20/17 15:47 Disposition Disposition: Admit Clinical Impression: Pneumonia, Constipation, Dehydration Disposition: Still a Patient at [facility] Decision to Admit: Admit from ER Decision to Admit Date: 07/20/17 Decision to Admit Time: 19:08 Condition: (1) Good Forms: Patient Portal Access Time of Disposition: 19:03 Quality - Quality Measures Quality Measures: N/A - Blood Pressure Screening Does Patient Have Any of the Following: No Blood Pressure Classification: Pre-Hypertensive BP Reading Systolic Measurement: 132 Diastolic Measurement: 78 Screening for High Blood Pressure: < Pre-Hypertensive BP, F/U Documented > [ [id number]] Pre-Hypertensive Follow-up Interventions: Referral to alternative/primary care provider.
[2017-07-20 16:11] LABS: URINE APPEARANCE CLEAR; URINE BILIRUBIN NEGATIVE (NEGATIVE); URINE BLOOD TRACE-I (NEGATIVE); URINE COLOR YELLOW; URINE GLUCOSE (UA) NEGATIVE (NEGATIVE); URINE KETONE NEGATIVE (NEGATIVE); URINE LEUKOCYTE ESTERASE NEGATIVE (NEGATIVE); URINE NITRITE NEGATIVE (NEGATIVE); URINE PROTEIN NEGATIVE (NEGATIVE); URINE UROBILINOGEN 0.2 E.U./dL (0.20 - 1.00)
[2017-07-20 16:15] LABS: HEMATOCRIT 41.9 % (35.0-47.0); HEMOGLOBIN 13.8 gm/dl (11.6-16.0); MEAN CORPUSCULAR HEMOGLOBIN 26.7 pg (27-33); MEAN CORPUSCULAR HGB CONC 32.9 g/dl (32-36); MEAN PLATELET VOLUME 8.7 fl (7.4-10.4); PLATELET COUNT 432 K/uL (130-400); RED BLOOD COUNT 5.17 M/uL (3.80-5.40); RED CELL DISTRIBUTION WIDTH 14.9 % (11.5-14.5)
[2017-07-20 16:21] LABS: URINE RBC 0 - 2 (NONE SEEN); URINE WBC NONE SEEN (0-2/hpf)
[2017-07-20 16:29] LABS: PLATELET ESTIMATE NORMAL (NORMAL)
[2017-07-20 16:30] LABS: ALBUMIN 3.9 g/dL (4.0-5.0); ALKALINE PHOSPHATASE 64 U/L (35-104); ALT/SGPT 14 U/L (<33); AST/SGOT 15 U/L (10.0-35.0); BLOOD UREA NITROGEN 17 mg/dL (8-23)
[2017-07-20 16:31] LABS: ALB/GLOB RATIO 1.1 (1.1-1.8); CREATININE 0.4 mg/dL (0.5-0.9); EST GLOMERULAR FILTRATION RATE > 60 mL/min; GLUCOSE,RANDOM 137 mg/dL (74-109); TOTAL PROTEIN 7.3 g/dL (6.6-8.7)
[2017-07-20] MEDS ORDERED: SODIUM CHLORIDE 0.9% 500 ML IV ONE (16:35)
[2017-07-20] MEDS ORDERED: ACETAMINOPHEN 500 MG TABLET PO PRN (19:50)
[2017-07-20] MEDS ORDERED: 0.9 % SODIUM CHLORIDE 1000ML 1,000 ML IV PRN (19:50)
[2017-07-20] MEDS ORDERED: LEVOFLOXACIN 500MG IVPB 500 MG/100 ML BAG IVPB SCH (19:50)
[2017-07-20] MEDS ORDERED: ALBUTEROL SULFATE (0.083%) 2.5 MG/3 ML NEB INH PRN (21:38)
[2017-07-20] MEDS: AMPICILLIN SODIUM/SULBACTAM NA 3 G in 0.9 % SODIUM CHLORIDE 100ML 100 ML IVPB SCH (22:48)
[2017-07-20] MEDS: NYSTATIN 15 GM TUBE TOP SCH (22:52)
[2017-07-20] MEDS: NYSTATIN 100,000 UNITS/ML 5ML CUP PO SCH (22:52)
[2017-07-20] MEDS: 0.9 % SODIUM CHLORIDE 1000ML 1,000 ML IV PRN (23:34)
[2017-07-21] MEDS: ALBUTEROL SULFATE (0.083%) 2.5 MG/3 ML NEB INH SCH ×5 (05:58→21:51)
[2017-07-21] MEDS: AMPICILLIN SODIUM/SULBACTAM NA 3 G in 0.9 % SODIUM CHLORIDE 100ML 100 ML IVPB SCH ×3 (06:12→22:15)
[2017-07-21 06:32] LABS: BASO % 0.1 % (0-6); EOS % 0.9 % (0-6); HEMATOCRIT 35.4 % (35.0-47.0); HEMOGLOBIN 11.1 gm/dl (11.6-16.0); LYMPH % 15.1 % (16-45); MEAN CELL VOLUME 82.7 fl (81-97); MEAN CORPUSCULAR HEMOGLOBIN 25.9 pg (27-33); MEAN CORPUSCULAR HGB CONC 31.4 g/dl (32-36); MEAN PLATELET VOLUME 8.4 fl (7.4-10.4); MONO % 11.9 % (0-9); PLATELET COUNT 332 K/uL (130-400); RED BLOOD COUNT 4.28 M/uL (3.80-5.40); RED CELL DISTRIBUTION WIDTH 14.5 % (11.5-14.5); WHITE BLOOD COUNT W/O DIFF 11.7 K/uL (4.2-12.2)
[2017-07-21] MEDS: LEVOTHYROXINE SODIUM 25 MCG TABLET PO SCH (07:24)
--- NOTE | 2017-07-21 07:50 | RADIOLOGY REPORT ---
EXAM: CHEST, TWO VIEWS HISTORY: COUGH. FOLLOW-UP PNEUMONIA. TECHNIQUE: Upright PA and lateral views of the chest were obtained. Comparison: Two view chest radiographic examination dated 07/10/17. FINDINGS: The heart remains normal in size and the pulmonary vasculature is nondilated. The lungs are hyperinflated consistent with COPD. There has been interval clearing of the air space disease from the left lung base. Minor mixed opacities in the right base persists and while likely relate to atelectasis or scar, minimal infiltrate would be difficult to entirely exclude. The lungs and pleural spaces are otherwise grossly clear. Degenerative changes are again noted scattered throughout the spine and shoulder girdles. Mild wedge deformity of a single lower thoracic vertebral body is stable since . IMPRESSION: INTERVAL CLEARING OF INFILTRATE/ATELECTASIS FROM THE LEFT LUNG BASE. MINOR MIXED OPACITIES QUESTIONED IN THE RIGHT LUNG BASE, NOT SIGNIFICANTLY CHANGED. WHILE THESE LIKELY RELATE TO SCARRING OR ATELECTASIS, MINIMAL INFILTRATE CANNOT BE ENTIRELY EXCLUDED. JOB NUMBER: [id number] [facility]
--- NOTE | 2017-07-21 08:12 | CT SCAN REPORT ---
EXAM: CT OF THE ABDOMEN AND PELVIS WITHOUT CONTRAST HISTORY: BLOATING AND CRAMPING. NAUSEA AND DIZZINESS. TECHNIQUE: Following oral contrast administration, helical CT examination of the abdomen and pelvis was performed without intravenous contrast. Comparison: Same day two view chest radiographic examination. CT of the abdomen and pelvis with contrast dated 02/08/12. FINDINGS: Emphysema is noted throughout the lung bases. There are patchy mixed opacities in a somewhat tree-in-bud pattern in the right lower lobe most pronounced medially suspicious for infiltrate. There is possible minimal atelectasis versus infiltrate in the left lung base as well. No pleural or pericardial effusion. The heart is not enlarged. Evaluation of the solid viscera is limited by lack of IV contrast utilization. No suspicious focal lesion demonstrated within the liver, spleen, pancreas, adrenal glands, nor kidneys with the exception of a tiny nonobstructing calculus in the upper pole of the right kidney. The proximal right renal collecting system does appear borderline prominent likely relating to phase of peristalsis. There are, however, several small calcifications noted at least adjacent to the mid to lower right ureter. While these are likely vascular, a small partially obstructing calculus would be difficult to exclude. No pelvic mass, lymphadenopathy, or free pelvic fluid. The uterus is likely surgically absent. No intrinsic urinary bladder abnormality is seen. No gross bowel dilatation nor definite bowel wall thickening. There is a moderate to large amount of stool within the colon and rectum. Post surgical changes are noted in the right abdomen likely relating to an enterocolic anastomosis. There is apparent mild wall thickening of the proximal stomach likely due to incomplete distention though a mucosal abnormality is not entirely excluded. No free intraperitoneal air. There is diffuse moderate to severe atherosclerotic calcification particularly in the common iliac arteries. Surgical fixation hardware is noted within the proximal right femur. No lytic or blastic bone lesion. Mild age indeterminate though probably chronic superior end plate compression deformities of L1 and L4. Degenerative changes scattered throughout the visualized spine. The gallbladder is unremarkable. IMPRESSION: 1. BILATERAL EMPHYSEMA. PATCHY MIXED OPACITIES WITHIN THE RIGHT LUNG BASE SUSPICIOUS FOR INFILTRATE OR ATELECTASIS. MINIMAL INFILTRATE OR ATELECTASIS ALSO IN THE LEFT LUNG. 2. NO DEFINITE CT EVIDENCE OF AN ACUTE INTRAABDOMINAL NOR INTRAPELVIC PROCESS. 3. TINY NONOBSTRUCTING CALCULUS IN THE UPPER POLE OF THE RIGHT KIDNEY. BORDERLINE PROMINENCE OF THE PROXIMAL RIGHT RENAL COLLECTING SYSTEM. THERE ARE A FEW TINY CALCIFICATIONS NOTED ALONG THE COURSE OF THE RIGHT URETER THOUGH THESE ARE LIKELY OUTSIDE THE URETER AND VASCULAR IN ORIGIN THOUGH A TINY PARTIALLY OBSTRUCTING CALCULUS WOULD BE DIFFICULT TO EXCLUDE. 3. STATUS POST PARTIAL RIGHT COLECTOMY. 4. DIFFUSE ATHEROSCLEROSIS. JOB NUMBER: [id number] [facility]
[2017-07-21] MEDS: PREDNISONE 20 MG TAB PO SCH ×2 (08:26→17:44)
[2017-07-21] MEDS ORDERED: ARNUITY (FLUTICASONE FUROATE) 100MCG INH INH SCH (10:00)
[2017-07-21] MEDS: UMECLIDINIUM BROMIDE (INCRUSE) 62.5MCG IH SCH (10:46)
[2017-07-21] MEDS: POLYETHYLENE GLY 17 GM PACKET PO SCH (11:08)
[2017-07-21] MEDS: FLUCONAZOLE 100 MG TABLET PO SCH (11:08)
[2017-07-21] MEDS: NYSTATIN 15 GM TUBE TOP SCH ×2 (11:09→22:18)
[2017-07-21] MEDS: NYSTATIN 100,000 UNITS/ML 5ML CUP PO SCH ×4 (11:09→22:15)
[2017-07-21] MEDS: 0.9 % SODIUM CHLORIDE 1000ML 1,000 ML IV PRN (11:37)
[2017-07-21] MEDS: MICONAZOLE 2% TP SCH (11:39)
--- NOTE | 2017-07-21 12:07 | Rehab Evaluation ---
Patient Information - Patient Information Diagnosis: Pneumonia, Dehydration, Elevated WBC count Ordered Treatment: PT Evaluate and Treat Status: Initial Evaluation Surgery: No Past Medical/Surgical Hx: PAST MEDICAL/SURGICAL HISTORY Past Surgical History hip colon hysterectomy lumpectomy PMH - Respiratory Hx Respiratory Disorders Yes Hx Asthma Yes Hx Bronchitis Yes Hx Chronic Obstructive Yes Pulmonary Disease (COPD) Hx Pneumonia Yes PMH - Cardiovascular Hx Cardiovascular Disorders No PMH - Neuro Hx Neurological Disorders No PMH - GI Hx Gastrointestinal Disorders No Comment: colon CA-removed 12 inches and did oral chemo PMH - Hx Genitourinary Disorders No PMH - Endocrine Hx Endocrine Disorders Yes Hx Thyroid Disease Yes PMH - Musculoskeletal Hx Musculoskeletal Disorders No PMH - Psych Hx Psychiatric Problems No PMH - Hematology/Oncology Hx Hematology/Oncology Yes Disorders Hx Cancer Yes: colon Social History: Detail (The patient lives in a 2 story house with a finished basement. She says that the basement and upstairs has a full flight of stairs, and the home has 4 steps to enter with a railing on both sides. Her bathroom has a tub/shower combo, but does not use a seat. She has a regular height toilet seat. Both the shower and toilet have grab bars present. She does not use an AD, and states that she does not have any problems going up and down the stairs in the home.) Precautions: [place] - Time With Patient Total Time Spent With Patient (Min): 30 Treatment Procedures: Detail (PT Initial Evaluation) Subjective Information - Subjective Information Per Patient (The patient denies any pain but does report frequent falls within the last 4 weeks. The patient stated that moving too fast contributes to her falls. The patient reports of feeling overall weak.) Objective Data - Pain Pain Present: No Pain Intensity: 0 Pain Scale Used: Numeric (1 - 10) - Mental Status Patient Orientation: Oriented x3 - ROM Within normal limits (Hip, Knee, and ankle Active ROM were WNL) - Strength/Tone Within normal limits (Knee Flexion/Extension 4+/5 Hip - Adduction 5/5, Flexion and Abduction 4+/5 Ankle - Plantarflexion and Dorsiflexion 5/5) - Bed Mobility Independent (The patient was able to transfer from supine to sit and able to scoot in bed independently.) - Transfers Independent (The patient was independent with sit to stand.) - Balance Balance Sitting: Good Balance Standing: Good (The patient was able to dress in the room without loss of balance. She was able to reach for her clothing in the closet without loss of balance.) - Sensation Intact - Gait Detail (The patient was able to ambulate without an assistive device and was independent with all ambulation activities within the room) Therapy Assessment - Therapy Assessment Detail (The patient is independent with transfers, bed mobility, and ambulation. She showed adequate functional strength, but she had complaints of nervousness with activity when she is fatigued or not feeling well. She reports that she had been receiving home PT the past week, and feels like it is helping her gain more strength and functionality. She would benefit from continuing home PT to address the patient's functional deficits within the home.) Problem List - Problem List Physical Therapy Problem List: Detail (1) Minimally decreased strength 2) Increased fatigue with medical conditions.) Goals - Goals Physical Therapy Goals: 1) Formal assessment of balance to be completed if patient is still admitted on Monday (07/24) Prognosis - Prognosis Good Plan - Plan Physical Therapy Plan: The patient would benefit from further balance assessment , as she states a history of falls in the home. The patient would benefit from further home physical therapy in the home to address functionality in the home environment.
--- NOTE | 2017-07-21 13:41 | Rehab Evaluation ---
Patient Information - Patient Information Diagnosis: Pneumonia, Dehydration, Elevated WBC count Ordered Treatment: OT Evaluate and Treat Status: Initial Evaluation Surgery: No Past Medical/Surgical Hx: PAST MEDICAL/SURGICAL HISTORY Past Surgical History hip colon hysterectomy lumpectomy PMH - Respiratory Hx Respiratory Disorders Yes Hx Asthma Yes Hx Bronchitis Yes Hx Chronic Obstructive Yes Pulmonary Disease (COPD) Hx Pneumonia Yes PMH - Cardiovascular Hx Cardiovascular Disorders No PMH - Neuro Hx Neurological Disorders No PMH - GI Hx Gastrointestinal Disorders No Comment: colon CA-removed 12 inches and did oral chemo PMH - Hx Genitourinary Disorders No PMH - Endocrine Hx Endocrine Disorders Yes Hx Thyroid Disease Yes PMH - Musculoskeletal Hx Musculoskeletal Disorders No PMH - Psych Hx Psychiatric Problems No PMH - Hematology/Oncology Hx Hematology/Oncology Yes Disorders Hx Cancer Yes: colon Premorbid Status: Detail (Pt. stated she was previously Ind. with all I/ADL's including dressing, bathing, burglar alarm installer, and meal prep. Pt.'s daughter, granddaughter, and son sometimes assist with grocery shopping (pt. attends with family) and outdoor work.) Social History: Detail (The patient lives in a 2 story house with a finished basement. There is a 4 step entry with bilateral railings. Pt. only goes to basement to do laundry. Her bathroom has a tub/shower combo, with no seat option (pt states she typically stands in shower). She has a regular height toilet seat. Both the shower and toilet have grab bars present. She does not use an AD. Pt. has a director of diagnostic imaging but only uses on occasion to retrieve items high up that she can't reach. Pt. stated she is very anxious about falling at home when she feels weak, as she does now. Pt. stated she has a history of multiple falls, including one in which she hit her head. The most recent fall was approx. 4 weeks ago. Pt. has ordered an alert call button system but has not yet received it.) Precautions: [place], Fall - Time With Patient Total Time Spent With Patient (Min): 30 Objective Data - Pain Pain Present: No (Pt stated no pain currently) - Mental Status Patient Orientation: Oriented x3 - Visual Perception Appears within normal limits for therapeutic activities - ROM Within normal limits (BUE) - Strength/Tone Not within normal limits (Pt. is small proportionately, and demo. appropriate Shd strength for her size (MMT 4+/5). However, biceps and triceps are fair (MMT 4-/5).) - Coordination Appears within normal limits for therapeutic activities - Bed Mobility Independent - Transfers Independent (sit<>stand from EOB with no mobility device.) - Balance Balance Sitting: Good Balance Standing: Good (Pt. demo. ability to reach to bottom of closet while standing with no LOB.) - Sensation Intact (BUE lt touch in tact fingertips) - ADL's/IADL's Detail (Pt. dressed LB Ind. prior to OT eval. Pt. stated she stands and holds the wall for balance. Educ provided to thread BLE while seated to reduce fall risk, and pt. verbalized understanding. Educ. provided that pt. may benefit from using a chair in the shower and to sit while bathing to conserve energy and reduce fall risk. Pt. stated a chair would fit in shower. Pt. currently only sponge bathes.) Therapy Assessment - Therapy Assessment Detail (Pt. has concerns/anxiety about being able to return to Ind. I/ADL's at home, and fear of falling, d/t feeling weak and tired. Pt. would benefit from continued OT services at home to increase BUE strength, assess home environment for potential modifications or AE, provide educ. in energy conservation techniques and options for decreasing fall risk. In-pt. OT services not recommended at this time. Pt. has a positive support system at home.) Problem List - Problem List Physical Therapy Problem List: Detail (1) Minimally decreased strength 2) Increased fatigue with medical conditions.) Goals - Goals Physical Therapy Goals: 1) Formal assessment of balance to be completed if patient is still admitted on Monday (07/24) Prognosis - Prognosis Good Plan - Plan Physical Therapy Plan: The patient would benefit from further balance assessment , as she states a history of falls in the home. The patient would benefit from further home physical therapy in the home to address functionality in the home environment. Occupational Therapy Plan: D/c from in-pt. OT services. Educ. was provided to call rehab dept. if Q's arise upon return home.
--- NOTE | 2017-07-21 15:11 | History and Physical Report ---
DATE: 07/21/2017 at 12:03 p.m. CHIEF COMPLAINT: Nausea, weakness, cough. The patient stated she was not feeling well. She was recently released from [facility] for pneumonia approximately 8 days ago. The patient was at home. She woke up in the middle of the night feeling very nauseated, indigestion. She was dizzy that she could not walk. She called her daughter who brought her into the emergency department for evaluation. She has a known history of severe COPD. She was evaluated in the emergency department by Dr. Conti. The chest x-ray looked improved for the pneumonia; however, CT scan was done on her abdomen which looked at the lower bases of the lungs and there was a possible small infiltrate on the right lower lobe, patchy-type infiltrate. Because of that, Dr. Conti felt she should stay for hydration. He mostly felt she was dehydrated. She also is constipated and having some abdominal bloating. She denies any leg or calf pain. She was admitted to the hospital for pneumonia, dehydration, constipation, and COPD. PAST MEDICAL HISTORY: Recent pneumonia left lower lobe, discharged from the hospital at [facility] on 07/13/2017, COPD, hypothyroidism, history of colon cancer being followed by Dr. Estevez and in remission. PAST SURGICAL HISTORY: Colon resection, hysterectomy, lumpectomy, hip surgery. MEDICATIONS: 1. Flovent 1 puff b.i.d. 2. Ventolin inhaler 2 puffs q.4 h. 3. Spiriva 1 puff daily. 4. Synthroid 25 mcg a day. 5. Calcium with vitamin D once a day. 6. Tessalon Perles t.i.d. p.r.n. 7. She was on Augmentin 875 twice a day. 8. Albuterol nebulizers q.4 h. p.r.n. ALLERGIES: AZITHROMYCIN, CEFUROXIME, CLARITHROMYCIN, CODEINE, ERYTHROMYCIN, DILAUDID, and she says LEVAQUIN; however, she developed it the last hospitalization and I really did not see an allergic reaction. She said her face was hot when she took the medication. It is more likely an adverse reaction versus an allergy but at this point we will make it an allergy. FAMILY/PSYCHOSOCIAL HISTORY: No significant family history. She is a former smoker. She stopped smoking in the year 1999. No drug or alcohol use. REVIEW OF SYSTEMS: HEENT: She does not have any congestion. She does have a sore throat but that is more from thrush being on the antibiotics. Cardiovascular: No chest pain, palpitations, or arrhythmia. Respiratory: See Chief Complaint. She has a cough. She is short of breath all the time, especially with exercise. Scant wheezing at times. Gastrointestinal: She had nausea, indigestion, and bloating. She has not had a bowel movement for 2 days. Genitourinary: No dysuria, hematuria, frequency, or burning on urination. Musculoskeletal: She has arthritis. She is moving all 4 extremities appropriately. Neurological: No CVA, paralysis, or paresthesias. Endocrine: She has hypothyroidism. Integument: No rash, ulcers, change in moles, yellow skin, or abnormal lesions on her skin. PHYSICAL EXAMINATION: VITALS: Height 5 feet 5 inches, weight 87 pounds. Temperature 98.1, pulse 106, blood pressure 109/54, respiratory rate 17, pulse ox 95% on room air. HEENT: Pupils are equal, round, and reactive to light and accommodation. Extraocular muscles are intact. Throat is clear except there is some red excoriation of her tongue which goes along with her thrush infection diagnosis. NECK: Supple. No jugular venous distention. No hepatojugular reflux. No carotid bruits. Thyroid is smooth. CARDIOVASCULAR: Regular rate and rhythm without murmurs, clicks, rubs, or gallops. RESPIRATORY: Decreased breath sounds. Scant wheezing at the bases. ABDOMEN: Soft, nontender. Slightly bloated. Taking MiraLax as I was examining her. No rebound or rigidity. EXTREMITIES: No pitting edema. No cyanosis, no clubbing. Full range of motion. Peripheral pulses are good. BREASTS: Exam deferred. GYNECOLOGICAL: Exam deferred. RECTAL: Exam deferred. NEUROLOGIC: Cranial nerves II-XII intact. No gross defects. Sensation normal, strength normal. Deep tendon reflexes equal bilaterally with Babinski negative. MENTAL STATUS: Alert and oriented x3. IMPRESSION: 1. Pneumonia right lower lobe. Seen on CT scan only. 2. Chronic obstructive pulmonary disease. 3. Nausea. 4. Constipation. 5. Dehydration. 6. Oral thrush. PLAN: Continue the Unasyn 3 g q.6 h. Nystatin swish and swallow. Prednisone 20 mg twice a day. The nurse informed me that she has vaginal yeast infection. Placed her on Monistat vaginal cream once a day for 7 days. Breathing treatments will be albuterol q.4 h. Continue the Spiriva once a day. Switching from her Flovent to the one the hospital uses, Anoro Ellipta once a day. Cautious hydration at 75 mL/hour. Will continue her home medications of Synthroid. MTDD
[2017-07-22] MEDS: 0.9 % SODIUM CHLORIDE 1000ML 1,000 ML IV PRN (02:47)
[2017-07-22] MEDS: AMPICILLIN SODIUM/SULBACTAM NA 3 G in 0.9 % SODIUM CHLORIDE 100ML 100 ML IVPB SCH ×3 (05:24→21:41)
[2017-07-22] MEDS: ALBUTEROL SULFATE (0.083%) 2.5 MG/3 ML NEB INH SCH ×5 (05:59→21:33)
[2017-07-22] MEDS: LEVOTHYROXINE SODIUM 25 MCG TABLET PO SCH (06:57)
[2017-07-22] MEDS: PREDNISONE 20 MG TAB PO SCH ×2 (08:18→17:44)
[2017-07-22] MEDS: FLUCONAZOLE 100 MG TABLET PO SCH (09:22)
[2017-07-22] MEDS: POLYETHYLENE GLY 17 GM PACKET PO SCH (09:23)
[2017-07-22] MEDS: NYSTATIN 15 GM TUBE TOP SCH ×2 (09:23→21:45)
[2017-07-22] MEDS: NYSTATIN 100,000 UNITS/ML 5ML CUP PO SCH ×4 (09:23→21:41)
[2017-07-22] MEDS: UMECLIDINIUM BROMIDE (INCRUSE) 62.5MCG IH SCH (10:14)
[2017-07-22] MEDS: ARNUITY (FLUTICASONE FUROATE) 100MCG INH INH SCH (10:15)
[2017-07-22] MEDS: MICONAZOLE 2% TP SCH (12:04)
[2017-07-22] MEDS: METOPROLOL SUCC 25 MG TAB.ER PO SCH (17:44)
[2017-07-23] MEDS: LEVOTHYROXINE SODIUM 25 MCG TABLET PO SCH (06:00)
[2017-07-23] MEDS: AMPICILLIN SODIUM/SULBACTAM NA 3 G in 0.9 % SODIUM CHLORIDE 100ML 100 ML IVPB SCH (06:00)
[2017-07-23] MEDS: ALBUTEROL SULFATE (0.083%) 2.5 MG/3 ML NEB INH SCH ×3 (06:00→13:53)
[2017-07-23] MEDS ORDERED: BISACODYL 5 MG TABLET PO ONE (06:29)
[2017-07-23] MEDS: PREDNISONE 20 MG TAB PO SCH (08:23)
[2017-07-23] MEDS: METOPROLOL SUCC 25 MG TAB.ER PO SCH (09:06)
[2017-07-23] MEDS: FLUCONAZOLE 100 MG TABLET PO SCH (09:06)
[2017-07-23] MEDS: POLYETHYLENE GLY 17 GM PACKET PO SCH (09:06)
[2017-07-23] MEDS: NYSTATIN 100,000 UNITS/ML 5ML CUP PO SCH (09:06)
[2017-07-23] MEDS: NYSTATIN 15 GM TUBE TOP SCH (09:07)
[2017-07-23] MEDS: ARNUITY (FLUTICASONE FUROATE) 100MCG INH INH SCH (09:43)
[2017-07-23] MEDS: UMECLIDINIUM BROMIDE (INCRUSE) 62.5MCG IH SCH (09:43)
[2017-07-23] MEDS ORDERED: MAGNESIUM CITRATE 296 ML BTL PO ONE (10:05)
[2017-07-23] MEDS ORDERED: ENOXAPARIN 40 MG/0.4 ML SYR SQ SCH (11:15)
[2017-07-23] MEDS: MICONAZOLE 2% TP SCH (12:40)
--- NOTE | 2017-07-23 14:16 | Discharge Note ---
VTE H&P Assessment - Risk for VTE Risk for VTE: Yes Risk Level: Moderate Risk Assessment Date: 07/23/17 Risk Assessment Time: 10:00 VTE Orders Placed or Will Be Placed: Yes Discharge Medications - Discharge Medications Prescriptions: Amoxicillin/Potassium Clav [Augmentin 500Mg/125Mg] 1 each PO TID #21 tab Metoprolol Succinate [Toprol Xl] 25 mg PO DAILY #30 tab.er.24h Polyethylene Glycol 3350 [Miralax] 17 gm PO DAILY #30 packet Prednisone [Prednisone 20Mg] 20 mg PO DAILY #10 tab Home Medications: Ambulatory Orders Calcium Carbonate/Vitamin D3 [Caltrate 600 Plus D3 Tablet] 1 each PO DAILY tab 03/16/16 [Last Taken 05/23/16] Tiotropium [place] [Spiriva] 18 mcg IH DAILY 03/16/16 [Last Taken 07/08/17 08:00 ] Levothyroxine Sodium [Synthroid] 25 mcg PO DAILY 05/23/16 [Last Taken 05/23/16] Albuterol Sulfate [Ventolin Hfa] 1 - 2 puff IH .EVERY 4-6 HRS PRN 07/08/17 [ Last Taken 07/08/17 11:00] Acetaminophen [Tylenol 500Mg Tab] 500 mg PO Q6H PRN tablet 07/09/17 [Last Taken Unknown] Benzonatate [Tessalon Perles] 100 mg PO TID PRN #30 capsule 07/13/17 [Last Taken Unknown] Fluticasone Propionate [Flovent Hfa] 2 puff IH BID #0 puff 07/13/17 [Last Taken 07/08/17 08:00] Nystatin 5 ml PO QID #200 ml 07/13/17 [Last Taken Unknown] Amoxicillin/Potassium Clav [Augmentin 500Mg/125Mg] 1 each PO TID #21 tab [Last Taken Unknown] Metoprolol Succinate [Toprol Xl] 25 mg PO DAILY #30 tab.er.24h 07/23/17 [Last Taken Unknown] Nystatin 15 gm TOP BID cream 07/23/17 [Last Taken Unknown] Polyethylene Glycol 3350 [Miralax] 17 gm PO DAILY #30 packet 07/23/17 [Last Taken Unknown] Prednisone [Prednisone 20Mg] 20 mg PO DAILY #10 tab 07/23/17 [Last Taken Unknown ] Discharge Note - Date Date of Discharge Note: 07/23/17 Disposition: Home, Self-Care Condition: (1) Good Instructions: Constipation (DC), COPD (Chronic Obstructive Pulmonary Disease) ( DC), Pneumonia (DC) Additional Instructions: follow up with Dr. Crook on in the afternoon Prescriptions: Amoxicillin/Potassium Clav [Augmentin 500Mg/125Mg] 1 each PO TID #21 tab Metoprolol Succinate [Toprol Xl] 25 mg PO DAILY #30 tab.er.24h Polyethylene Glycol 3350 [Miralax] 17 gm PO DAILY #30 packet Prednisone [Prednisone 20Mg] 20 mg PO DAILY #10 tab Referrals: Harish Crook D.O. [Primary Care Provider] - Forms: Patient Portal Access Diet at Discharge: Low Salt Diet
[2017-07-23] MEDS ORDERED: AMOX TR/POT CLAV. 500MG/125MG TABLET PO SCH (16:00)
--- NOTE | 2017-07-26 12:40 | Discharge Summary ---
DATE: 07/23/2017 DISCHARGE DIAGNOSES: 1. Right lower lobe pneumonia, improving. 2. Nausea, improving. 3. Constipation, resolved. 4. Supraventricular tachycardia, short episode lasting about 3 seconds, resolved. 5. Dehydration. ATTENDING PHYSICIAN: Harish Crook DO REASON FOR HOSPITALIZATION: The patient came to the emergency department because of nausea, weakness, and cough. The patient states that she was not feeling well. She was recently released from [facility] approximately 8 days ago. The patient was at home. She woke up in the middle of the night feeling very nauseated, indigestion. She was dizzy and she felt she could not walk. She called her daughter who brought her to the emergency department for evaluation. She has a known history of severe COPD. She was evaluated in the emergency department by Dr. Conti. X-ray showed improvement of the pneumonia on the left lower lobe; however, the CT scan was done on her abdomen which looked at the lower bases and there was possible infiltrate of the right lower lobe, patchy type infiltrate. Because of that, Dr. Conti felt she should stay for hydration and further treatment. He mostly felt she was dehydrated. She was also constipated and having some abdominal bloating. She denies any leg or calf pain. She was admitted to the hospital for pneumonia, dehydration, constipation, and COPD. SIGNIFICANT FINDINGS: Chest x-ray with interval clearing of the infiltrate/atelectasis from the left lower lung base, minor mixed opacity question in the right lung base but not significantly changed, likely related to scarring or atelectasis, minimal infiltrate cannot be entirely excluded. CT of the abdomen and pelvis showing bilateral emphysema, patchy mixed opacities within the right lung base suspicious for infiltrate or atelectasis, minimal infiltrate or atelectasis also in the left lung, no definitive CT evidence of acute intraabdominal nor intrapelvic process. Tiny nonobstructing calculus in the upper pole of the right kidney, borderline prominence of the proximal right renal collecting system. There are a few tiny calcifications along the course of the right ureter but these are likely outside the ureter and vascular in origin though the only tiny partially obstructing calculus would be difficult to exclude status post partial right colectomy, diffuse atherosclerosis. Initially the white count was 21,000, hemoglobin 13.8, the next day it dropped down to 11.7 with hydration. The segs were 86 in the ER, dropped down to 82% the next day. Lymphs 15.1. Potassium 4.1, sodium 132, BUN 17, creatinine 0.4, albumin 3.9 low. Urine showing RBC 0-2, no white cells, 3-6 epithelial cells. THERAPY PROVIDED: The patient was placed on Unasyn 3 g q.8 h., prednisone orally 20 mg b.i.d., and cautious hydration. She was also given citrate of mag along with MiraLax to get her bowel movements to happen. The MiraLax by itself did not do it but the half a bottle of citrate mag unloaded her colon with 2 or 3 bowel movements and she felt much better. HOSPITAL COURSE: Improved. CONDITION ON DISCHARGE: Improved. DISCHARGE INSTRUCTIONS: Follow up with Dr. Crook in 2 days. Prednisone 20 mg a day with 10 pills dispensed. Augmentin 3 times a day for 7 days. Metoprolol was started 25 mg once a day for her short episode of SVT and tachycardia. That seemed to control her heart rate. MTDD
== END 2017-07-23 16:25 | disposition home or self-care (01) | DRG 194 ==
LOC: ER 15:31 → MEDSURG 19:40 → OBSVTOIN 19:50
PROVIDERS: ADMIT Emergency Medicine; ATTEND Emergency Medicine
DX: J18.9 Pneumonia, unspecified organism (principal); R53.1 Weakness; B37.0 Candidal stomatitis; D72.829 Elevated white blood cell count, unspecified; I47.1 Supraventricular tachycardia; E86.0 Dehydration; K59.00 Constipation, unspecified; J44.9 Chronic obstructive pulmonary disease, unspecified; E03.9 Hypothyroidism, unspecified; B37.3 Candidiasis of vulva and vagina; Z85.038 Personal history of other malignant neoplasm of large intestine; Z87.891 Personal history of nicotine dependence
CPT/HCPCS: 93041; 99285 ×2; 96374; 96361; 80053; 81001; 85027; 71046; 74176; J2405; 85025; 93005; 94640; 97165; 99223; 99233; 99238; J0295; J1650; J7030; J7512; J7613

== ENCOUNTER 2018-02-26 07:49 | Inpatient (IN) | payer MEDICARE, BC ==
[2018-02-26] MEDS ORDERED: 0.9 % SODIUM CHLORIDE 1,000 ML BAG IV ONE (07:52)
[2018-02-26] MEDS ORDERED: ACETAMINOPHEN 1,000 MG/100 ML BTL IVPB ONE (07:52)
--- NOTE | 2018-02-26 07:59 | Emergency Department Record ---
History of Present Illness - General Stated Complaint: N/V Time Seen by Provider: 02/26/18 07:51 Source: Patient, Family, EMS Mode of Arrival: EMS Limitations: No limitations - History of Present Illness Initial Comments: 77 yo female presents after a syncopal episode while talking on the phone with her daughter. She states she has not felt well for three days. She has had some nausea, lightheadedness, headaches, dizziness, cough, chills, weakness. She was talking on the phone this morning and passed out. She did hit the area under the left eye. No confusion. She denies any other injury beside the facial area. She is still nauseated and now has a headache. She has a chronic cough. She has a history of prior COPD. Dr Crook is her PCP. Complaint: Collapsed -: Minutes(s) Prodromal Symptoms: Lightheaded, Nausea/vomiting -: Minutes(s) Witnessed: Yes - by other (Occurred while on the phone with grand daughter) Current Symptoms: Headache, Lightheaded, Nausea, Vertigo History: Other Context: At rest Treatments Prior to Arrival: None - Related Data Previous Rx's Medication Instructions Recorded Acetaminophen [Tylenol 500Mg Tab] 500 mg PO Q6H PRN tablet 07/09/17 Benzonatate [Tessalon Perles] 100 mg PO TID PRN #30 capsule 07/13/17 Fluticasone Propionate [Flovent 2 puff IH BID #0 puff 07/13/17 Hfa] Metoprolol Succinate [Toprol Xl] 25 mg PO DAILY #30 tab.er.24h 07/23/17 Allergies Allergy/AdvReac Type Severity Reaction Status Date / Time azithromycin Allergy Unknown DIFFICULTY Verified 02/26/18 08:13 BREATHING cefuroxime axetil Allergy Unknown DIFFICULTY Verified 02/26/18 08:13 BREATHING clarithromycin Allergy Unknown DIFFICULTY Verified 02/26/18 08:13 BREATHING codeine Allergy Unknown BLISTERS Verified 02/26/18 08:13 erythromycin base Allergy Unknown DIFFICULTY Verified 02/26/18 08:13 BREATHING hydromorphone HCl Allergy Unknown DIFFICULTY Verified 02/26/18 08:13 [From DILAUDID] BREATHING levofloxacin [From Levaquin] Allergy DIFFICULTY Verified 02/26/18 08:14 BREATHING Allergies: Allergy Unknown DIFFICULTY Uncoded 02/26/18 08:13 BREATHING Review of Systems Constitutional: Reports: Chills, Malaise, Weakness. Denies: Fever Eyes: Denies: Eye discharge ENT: Denies: Congestion, Throat pain Respiratory: Reports: Cough, Wheezes. Denies: Dyspnea, Hemoptysis, Stridor Cardiovascular: Reports: Palpitations, Syncope. Denies: Chest pain Endocrine: Reports: Fatigue Gastrointestinal: Reports: Nausea, Vomiting. Denies: Abdominal pain, Diarrhea Genitourinary: Denies: Dysuria, Urgency Musculoskeletal: Denies: Arthralgia, Back pain, Joint swelling, Myalgia Skin: Denies: Bruising, Change in color, Rash Neurological: Reports: Headache, Vertigo. Denies: Confusion Psychiatric: Denies: Anxiety Hematological/Lymphatic: Denies: Blood Clots, Easy bleeding, Easy bruising Past Medical History - SOCIAL HISTORY Smoking Status: Former smoker - RESPIRATORY Hx Respiratory Disorders: Yes Hx Asthma: Yes Hx Bronchitis: Yes Hx COPD: Yes Hx Pneumonia: Yes - CARDIOVASCULAR Hx Cardio Disorders: No - NEURO Hx Neuro Disorders: No - GI Hx GI Disorders: No Comment:: colon CA-removed 12 inches and did oral chemo - Hx Genitourinary Disorders: No - ENDOCRINE Hx Endocrine Disorders: Yes Hx Thyroid Disease: Yes - MUSCULOSKELETAL Hx Musculoskeletal Disorders: No - PSYCH Hx Psych Problems: No - HEMATOLOGY/ONCOLOGY Hx Hematology/Oncology Disorders: Yes Hx Cancer: Yes (colon) Family Medical History Hx Heart Disease: Father, Mother, Brother/Sister Hx HTN: Mother Physical Exam - General General Appearance: Alert, Oriented x3, Cooperative, No acute distress Limitations: No limitations - Head Head exam: negative: Atraumatic, Normal inspection Head exam detail: Abrasion, Laceration Image of Face/Head: 1 - 1cm superficial laceration, no bleeding 2 - 1cm superfical laceration, no bleeding. - Eye Eye exam: Normal appearance, PERRL, EOMI. negative: Conjunctival injection, Scleral icterus - ENT ENT exam: Normal exam, Mucous membranes moist, Normal orophraynx Ear exam: Normal external inspection Nasal Exam: Normal inspection Mouth exam: Normal external inspection Teeth exam: Normal inspection Throat exam: Normal inspection - Neck Neck exam: Normal inspection, Full ROM. negative: Tenderness - Respiratory Respiratory exam: Normal lung sounds bilaterally. negative: Respiratory distress, Rhonchi, Stridor, Wheezes - Cardiovascular Cardiovascular Exam: Regular rate, Normal rhythm, Normal heart sounds Peripheral Pulses: 2+: Radial (R), Radial (L) - GI/Abdominal GI/Abdominal exam: Soft. negative: Tenderness - Rectal Rectal exam: Deferred - exam: Deferred - Extremities Extremities exam: Normal inspection. negative: Pedal edema, Tenderness - Back Back exam: Denies: CVA tenderness (R), CVA tenderness (L) - Neurological Neurological exam: Alert, Oriented X3. negative: Altered - Psychiatric Psychiatric exam: Normal affect, Normal mood - Skin Skin exam: Abrasion Course - Reevaluation(s) Reevaluation #1: EKG EKG #1: 0756 Rate: 71 Rhythm: sinus [place]: left Intervals: QTc 460 ST segments: poor R wave, Prior: 07/22/17 No significant changes 02/26/18 08:02 No acute changes on the CBC or BMP 02/26/18 08:18 Normal Troponin 02/26/18 08:39 02/26/18 09:02 HCT is negative for acute process. Atrophy. Sinus disease. 02/26/18 09:04 CXR was read as NEW patchy air space disease in the RLL may represent pneumonia 02/26/18 09:40 The case was discussed with Dr Crook. He will admit for weakness, syncope, pneumonia Medical Decision Making - Lab Data Result diagrams: 02/26/18 07:55 02/26/18 07:55 Disposition Disposition: Admit Clinical Impression: Syncope, Nausea and vomiting, Pneumonia Disposition: Still a Patient at [facility] Decision to Admit: Admit from ER Decision to Admit Date: 02/26/18 Decision to Admit Time: 09:08 Condition: (2) Stable Time of Disposition: 09:08 Quality - Quality Measures Quality Measures: N/A - Blood Pressure Screening Does Patient Have Any of the Following: Active Dx of HTN Blood Pressure Classification: Normal BP Reading Systolic Measurement: 113 Diastolic Measurement: 57 Screening for High Blood Pressure: Patient Exclusion, Hx of HTN [G9744]
[2018-02-26 08:05] LABS: BASO % 0.3 % (0-6); EOS % 4.3 % (0-6); GRAN % 65.6 % (47-80); HEMATOCRIT 41.1 % (35.0-47.0); HEMOGLOBIN 13.4 gm/dl (11.6-16.0); LYMPH % 18.1 % (16-45); MEAN CELL VOLUME 82.7 fl (81-97); MEAN CORPUSCULAR HGB CONC 32.6 g/dl (32-36); MEAN PLATELET VOLUME 8.2 fl (7.4-10.4); MONO % 11.7 % (0-9); PLATELET COUNT 247 K/uL (130-400); RED BLOOD COUNT 4.97 M/uL (3.80-5.40); RED CELL DISTRIBUTION WIDTH 13.2 % (11.5-14.5); WHITE BLOOD COUNT W/O DIFF 11.9 K/uL (4.2-12.2)
[2018-02-26 08:14] LABS: BLOOD UREA NITROGEN 14 mg/dL (8-23); CREATININE 0.5 mg/dL (0.5-0.9); EST GLOMERULAR FILTRATION RATE > 60 mL/min
[2018-02-26 08:17] LABS: GLUCOSE,RANDOM 142 mg/dL (74-109)
[2018-02-26 08:20] LABS: ALB/GLOB RATIO 1.3 (1.1-1.8); ALBUMIN 3.9 g/dL (4.0-5.0); ALKALINE PHOSPHATASE 68 U/L (35-104); ALT/SGPT 12 U/L (<33); AST/SGOT 20 U/L (10.0-35.0)
[2018-02-26] MEDS ORDERED: ONDANSETRON HCL IV 4 MG/2 ML VIAL IVP ONE (08:39)
[2018-02-26] MEDS ORDERED: DOXYCYCLINE HYCLATE 100 MG CAPSULE PO ONE (09:07)
[2018-02-26] MEDS ORDERED: BENZONATATE 100 MG CAPSULE PO PRN (10:07)
[2018-02-26] MEDS ORDERED: METHYLPREDNISOLONE PF 125MG/VIAL IVP SCH (10:07)
[2018-02-26] MEDS: IPRATROPIUM/ALBUTEROL (0.5MG/3MG) NEB INH SCH ×4 (10:27→21:57)
[2018-02-26] MEDS ORDERED: UMECLIDINIUM BROMIDE (INCRUSE) 62.5MCG IH SCH (10:30)
[2018-02-26] MEDS ORDERED: ARNUITY (FLUTICASONE FUROATE) 100MCG INH INH SCH (10:30)
[2018-02-26] MEDS: LEVOTHYROXINE SODIUM 25 MCG TABLET PO SCH (11:00)
[2018-02-26 11:19] LABS: URINE APPEARANCE CLEAR; URINE BILIRUBIN NEGATIVE (NEGATIVE); URINE BLOOD TRACE-I (NEGATIVE); URINE COLOR YELLOW; URINE GLUCOSE (UA) NEGATIVE (NEGATIVE); URINE KETONE NEGATIVE (NEGATIVE); URINE LEUKOCYTE ESTERASE NEGATIVE (NEGATIVE); URINE NITRITE NEGATIVE (NEGATIVE); URINE PROTEIN NEGATIVE (NEGATIVE); URINE UROBILINOGEN 0.2 E.U./dL (0.20 - 1.00)
[2018-02-26 11:32] LABS: URINE AMORPHOUS SEDIMENT 2+; URINE BACTERIA FEW; URINE EPITHELIAL CELLS 0 - 2 (FEW); URINE RBC 0 - 2 (NONE SEEN); URINE WBC 0 - 2 (0-2/hpf)
[2018-02-26] MEDS: 0.9 % SODIUM CHLORIDE 1000ML 1,000 ML IV PRN (13:09)
[2018-02-26] MEDS ORDERED: AMPICILLIN SODIUM/SULBACTAM NA 3 G in 0.9 % SODIUM CHLORIDE 100ML 100 ML IVPB SCH (14:45)
--- NOTE | 2018-02-26 19:13 | Cardiology Consult ---
DATE OF CONSULTATION: 02/26/2018 HISTORY OF PRESENT ILLNESS: Elvia Maguire is a very pleasant 77-year-old female with past medical history of hypothyroidism, COPD and asthma, colon cancer status post resection, and former tobacco use. She also has a questionable history of an abnormal heart rhythm. She presented to [facility] after an episode of syncope. She had not been feeling well for the last three days with complaints of nausea, lightheadedness, headache, dizziness, cough, chills, and weakness. She was talking on the phone with her granddaughter when she felt nauseous and began dry-heaving. She felt lightheaded and then passed out. She is unsure of how long loss of consciousness was, as this event was unwitnessed. When se regained consciousness, she continued to feel nauseated and had associated diaphoresis. She denies chest pain or palpitations before or after the event. She has no history of coronary artery disease, hypertension, diabetes , or CVA or TIA. She does state that she has had syncope without warning in the past but was evaluated at a hospital and no reason was found. She has been taking Metoprolol succinate 25 mg daily for an abnormal heart rhythm prescribed by her PCP. She denies any history of SVT or atrial fibrillation or flutter. She had a basic treadmill stress test more than five years ago. She denies any previous echocardiogram. She has a family history of CAD in her siblings and father. She has never seen a [facility]ist. Her vital signs are stable with a blood pressure of 113/57 mmHg. Metoprolol succinate is currently on hold, however. Telemetry was reviewed and demonstrated normal sinus rhythm with a rate of 65 beats per minute and no arrhythmias. Troponin has been negative x1. EKG on admission demonstrated normal sinus rhythm with left anterior fascicular block, and T-wave inversions in leads V1 and V2. She is being treated for pneumonia and COPD exacerbation with steroids and antibiotics. ALLERGIES: AZITHROMYCIN. CEFUROXIME. CLARITHROMYCIN. CODEINE. ERYTHROMYCIN. DILAUDID. LEVOFLOXACIN. MEDICATIONS: Toprol XL 25 mg daily, currently on hold. Flovent HFA two puffs b.i.d. Tessalon Perles 100 mg p.o. t.i.d. p.r.n. cough. Acetaminophen 500 mg every six hours p.r.n. pain. Levothyroxine 25 mcg daily. FAMILY HISTORY: Brother AK, sister AK, father AK. SOCIAL HISTORY: Former tobacco use, denies alcohol use, no routine exercise. PAST MEDICAL HISTORY: COPD, asthma, former tobacco use, colon cancer status post resection, and hypothyroidism. REVIEW OF SYSTEMS: CONSTITUTIONAL: Complains of chills, fatigue, weakness, lightheadedness, dizziness, syncope, and diaphoresis. EYE: No recent visual problems. ENMT: No ear pain, nasal congestion, or sore throat. RESPIRATORY: Shortness of breath and cough. CARDIOVASCULAR: Complains of palpitations. No chest pain, PND, or orthopnea. PERIPHERAL VASCULAR: No peripheral edema or claudication. GASTROINTESTINAL: Complains of nausea. No vomiting or diarrhea. MUSCULOSKELETAL: No back pain, neck pain, joint pain, muscle pain, or decreased range of motion. INTEGUMENTARY: No rash, pruritus. NEUROLOGIC: Alert and oriented. PSYCHIATRIC: No anxiety or depression. PHYSICAL EXAM: GENERAL: Alert and oriented, well nourished, in no acute distress. HEAD: Normocephalic, laceration and ecchymosis of the left orbit. ENT: EOMI, PERRL. No scleral icterus, erythema, throat free from erythema, and lesions. NECK: Supple, nontender, no carotid bruits, no JVD. RESPIRATORY; Clear to auscultation, nonlabored respiration, coarse cough on expiration. CARDIAC: Regular rate and rhythm. No murmurs, rubs, gallops. PERIPHERAL VASCULAR: No peripheral edema. No cyanosis, clubbing. Peripheral pulses 2+ and symmetric. ABDOMEN: Soft, nontender, nondistended, normal bowel sounds. SKIN: Skin is warm, dry, and pink. No rashes. MSK: Normal range of motion of all four extremities. Normal gait. NEUROLOGIC: Awake, alert, and oriented x3. PSYCHIATRIC: Cooperative, appropriate mood and affect. LABS: Hemoglobin is 13.4. Hematocrit 41.1. WBC 11.9. Platelets 247. Sodium 135. Potassium 4.3. Chloride 96. CO2 25. BUN 14. Creatinine 0.5. Glucose 142. Troponin 0.010 x1, UA negative. IMAGING: Chest x-ray is pending, head CT is pending, EKG demonstrates normal sinus rhythm with left anterior fascicular block and T-wave inversions in V1 and V2. She had a carotid ultrasound performed on 08/31/16, which suggested no significant stenosis. ASSESSMENT AND PLAN: 1. SYNCOPE, LIKELY VASOVAGAL RESPONSE TO DRY HEAVING. HOWEVER, SHE DOES HAVE RISK FACTORS FOR CORONARY ARTERY DISEASE AND HAS BEEN EXPERIENCING PALPITATIONS. WILL PLAN FOR AN ECHOCARDIOGRAM DURING THIS ADMISSION TO EVALUATE HEART STRUCTURE AND FUNCTION. WILL CONTINUE TO MONITOR TELEMETRY. IF NO EVENTS ARE FOUND ON TELEMETRY BY DISCHARGE, WILL PLAN TO DISCHARGE WITH A 48-HOUR HOLTER MONITOR. WILL PLAN FOR A [place]ISCAN CARDIOLITE AN OUTPATIENT. 2. PALPITATIONS. CONTINUE TO MONITOR TELEMETRY. PLAN TO DISCHARGE WITH 48-HOUR HOLTER MONITOR. PLANNING FOR ECHO AND OUTPATIENT STRESS TEST, DISCUSSED ABOVE. 3. PNEUMONIA AND ACUTE EXACERBATION OF COPD. CONTINUE ANTIBIOTICS AND STEROIDS PER PRIMARY TEAM. 4. SHE WILL FOLLOW-UP WITH [facility] IN TWO TO THREE WEEKS AFTER DISCHARGE, OR SOONER IF NEEDED. Attending Note: Seen and examined patient and confirmed findings. I agree with the above assesment and plan which was discussed with me. JOB NUMBER: [id number] [facility]
[2018-02-26] MEDS: DOXYCYCLINE HYCLATE 100 MG CAPSULE PO SCH (21:23)
[2018-02-27] MEDS: AMPICILLIN SODIUM/SULBACTAM NA 3 G in 0.9 % SODIUM CHLORIDE 100ML 100 ML IVPB SCH ×5 (00:01→23:26)
[2018-02-27] MEDS: 0.9 % SODIUM CHLORIDE 1000ML 1,000 ML IV PRN (00:05)
[2018-02-27] MEDS: ACETAMINOPHEN 325 MG TAB PO PRN (00:39)
[2018-02-27] MEDS: IPRATROPIUM/ALBUTEROL (0.5MG/3MG) NEB INH SCH ×5 (05:58→21:32)
[2018-02-27] MEDS: LEVOTHYROXINE SODIUM 25 MCG TABLET PO SCH (06:07)
[2018-02-27] MEDS ORDERED: 0.9 % SODIUM CHLORIDE 1000ML 1,000 ML IV PRN (07:11)
--- NOTE | 2018-02-27 07:14 | CT SCAN REPORT ---
EXAM: NONCONTRAST CT OF THE HEAD HISTORY: SYNCOPE, NAUSEA, VOMITING, WEAKNESS. TECHNIQUE: Noncontrast CT of the head was obtained. Comparison: None. FINDINGS: No midline shift, mass effect, or abnormal intra or extraaxial fluid collection. No cerebral edema, focal mass, or intracranial hemorrhage detected. Mild diffuse prominence of the ventricles and cortical sulci. Mild low attenuation of the periventricular white matter. The basal cisterns are not effaced. No evidence of displaced calvarial fracture. Partial opacification of bilateral ethmoid air cells. Minimal mucosal thickening within the visualized right maxillary sinus and sphenoid sinuses. IMPRESSION: NO ACUTE INTRACRANIAL FINDINGS. 2. 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 3. MILD SINUS DISEASE INVOLVING BILATERAL ETHMOID AIR CELLS, BILATERAL SPHENOID SINUSES, AND RIGHT MAXILLARY SINUS. JOB NUMBER: [id number] MTDD
--- NOTE | 2018-02-27 07:18 | RADIOLOGY REPORT ---
EXAM: CHEST, TWO VIEWS HISTORY: SYNCOPE, NAUSEA, AND VOMITING. TECHNIQUE: PA and lateral views of the chest were obtained. Comparison: Chest radiograph 08/10/17. FINDINGS: The cardiac silhouette is within normal size limits. Calcification of the thoracic aorta. Mild patchy opacity in the right lung base on frontal view, likely right middle lobe. No other definite focal pulmonary opacities. The lungs are hyperinflated. No pleural effusion or pneumothorax. Diffuse osteopenia. Multilevel thoracic spine degenerative changes. IMPRESSION: MILD RIGHT LUNG BASE OPACITY, NOT SEEN ON 08/10/17 COMPARISON AND SUSPICIOUS FOR ACUTE AIR SPACE DISEASE. THE LUNGS ARE HYPERINFLATED COMPATIBLE WITH COPD. JOB NUMBER: [id number] MTDD
[2018-02-27] MEDS: DOXYCYCLINE HYCLATE 100 MG CAPSULE PO SCH ×2 (09:22→21:43)
--- NOTE | 2018-02-27 11:01 | History and Physical Report ---
DATE: CHIEF COMPLAINT: Syncope, weakness, nausea, cough. HISTORY OF PRESENT ILLNESS: This 77-year-old female presented to the ER via ambulance after an episode where she passed out on the phone talking to her niece. She stated she was feeling nauseated all morning, feeling sick to her stomach, lightheaded, and coughing. She called her niece and as she was talking to her, she went down and hit her head on the ground. The niece got to her house in about 10 minutes and she was awake and dizzy upon her arrival. EMS was called and she was transported to the hospital. EMS may have seen some atrial fibrillation on the monitor but upon arrival to the emergency department, she was in normal sinus rhythm. She was evaluated by Dr. Conti with a CT of the head which was negative. EKG showing normal sinus rhythm. No acute changes. Cardiac enzymes negative. Chest x-ray showing a right lower lobe infiltrate. She was started on doxycycline 200 mg twice a day orally and admitted to the hospital with a cardiology consult with Dr. Ansari. She had warning symptoms and she told her niece that she was going to pass out. She felt dizzy and lightheaded on the phone prior to her episode. She denies any chest pain. She has a cough that she has had for a couple of weeks but she has chronic bronchitis and COPD and coughs almost all the time and is short of breath chronically. PAST MEDICAL HISTORY: She has had episodes of pneumonia on and off. She also has COPD, hypothyroidism, history of colon cancer followed by Dr. Estevez and in remission. PAST SURGICAL HISTORY: Colon resection, hysterectomy, lumpectomy of the breast, and hip surgery. ALLERGIES: AZITHROMYCIN, CEFUROXIME, CLARITHROMYCIN, CODEINE, ERYTHROMYCIN, DILAUDID, and she thinks Levaquin she also has had a problem with. More likely an adverse reaction to Levaquin. She was in the hospital when this happened and really no signs of an allergy, just she felt nauseated and did not feel well. MEDICATIONS: 1. Spiriva 1 puff daily. 2. Toprol-XL 25 mg daily. 3. Levothyroxine 25 mcg daily. 4. Flovent 2 puffs b.i.d. 5. Calcium with vitamin D 1 daily. 6. Tessalon Perles 100 mg t.i.d. p.r.n. 7. Ventolin 2 puffs every 6 hours p.r.n. 8. Tylenol 500 mg q.6 h. p.r.n. FAMILY/PSYCHOSOCIAL HISTORY: No significant family history. She is a former smoker. She stopped smoking in the year 1999. No drug or alcohol use. REVIEW OF SYSTEMS: HEENT: She has some congestion and a cough. She does not have a sore throat. Cardiovascular: She does complain of occasional palpitation which happened while she was here. Nothing significant was found on the monitor. Normal sinus rhythm without PVCs. Respiratory: See Chief Complaint. She has a cough, congestion, and slightly short of breath more than her baseline. Mostly with exercise. Scant wheezing bilaterally. Gastrointestinal: She has had nausea and indigestion and bloating today and this was happening right before she passed out. Genitourinary: No dysuria, hematuria, frequency, or burning on urination. Musculoskeletal: She has arthritis. She is moving all 4 extremities appropriately. Neurological: No CVA, paralysis, or paresthesias. Endocrine: She has hypothyroidism. Integument: No rash, ulcers, change in moles, or yellow skin or abnormal lesions. She had seborrheic keratosis removed from her right arm approximately 10 days ago and would like the stitches removed. PHYSICAL EXAMINATION: VITALS: Height 5 feet 5 inches, weight 92 pounds. Temperature 97.7, pulse 64, blood pressure 104/71, respiratory rate 18, pulse ox 95% on room air. HEENT: Pupils are equal, round, and reactive to light and accommodation. Extraocular muscles are intact. Throat is clear. Nose is clear. Tympanic membranes are bee. NECK: Supple. No jugular venous distention. No hepatojugular reflux. No carotid bruits. Thyroid is smooth. CARDIOVASCULAR: Regular rate and rhythm without murmurs, clicks, rubs, or gallops. RESPIRATORY: Decreased breath sounds. Some wheezing in the bases. Coarse coughing when she takes a deep breath. ABDOMEN: Soft, nontender. Slightly bloated. No rebound or rigidity. EXTREMITIES: No pitting edema. No cyanosis, no clubbing. Full range of motion. Peripheral pulses are good. BREASTS: Deferred. GYNECOLOGICAL: Exam deferred. RECTAL: Exam deferred. NEUROLOGIC: Cranial nerves II-XII intact. No gross defects. Sensation normal, strength normal. Deep tendon reflexes equal bilaterally with Babinski negative. MENTAL STATUS: Alert and oriented x3. IMPRESSION: 1. Pneumonia, right lower lobe, seen on chest x-ray. 2. Chronic obstructive pulmonary disease. 3. Nausea. 4. Syncope. Possible vasovagal syncope. 5. Hypothyroidism. PLAN: IV Unasyn 3 g q.6 h. Doxycycline 100 mg b.i.d. Continue DuoNeb treatments q.4 h. while awake and Solu-Medrol 60 mg q.8 h. Card[address] consult with Dr. Ansari and they ordered an echocardiogram. She was already on the java sdet and possibly should go home on a Holter monitor. We will possibly schedule an outpatient stress test. JUSTNI
[2018-02-27] MEDS: CALCIUM CARBONATE 500 MG TAB.CHEW PO PRN (23:15)
[2018-02-28] MEDS: ACETAMINOPHEN 325 MG TAB PO PRN (00:23)
[2018-02-28] MEDS ORDERED: METOPROLOL TART 25 MG TABLET PO ONE ×2 (02:01→02:29)
[2018-02-28] MEDS ORDERED: DILTIAZEM 25MG/5ML VIAL IV ONE (02:43)
[2018-02-28] MEDS: AMPICILLIN SODIUM/SULBACTAM NA 3 G in 0.9 % SODIUM CHLORIDE 100ML 100 ML IVPB SCH ×4 (05:20→23:29)
[2018-02-28] MEDS: IPRATROPIUM/ALBUTEROL (0.5MG/3MG) NEB INH SCH ×6 (05:34→21:36)
[2018-02-28] MEDS: LEVOTHYROXINE SODIUM 25 MCG TABLET PO SCH (06:06)
[2018-02-28] MEDS ORDERED: ENOXAPARIN 30 MG/0.3 ML SYR SQ SCH (10:00)
[2018-02-28] MEDS ORDERED: ENOXAPARIN 40 MG/0.4 ML SYR SQ SCH (10:00)
[2018-02-28] MEDS: APIXABAN 5MG TABLET PO SCH ×2 (11:05→21:30)
[2018-02-28] MEDS: DOXYCYCLINE HYCLATE 100 MG CAPSULE PO SCH ×2 (11:05→21:30)
[2018-02-28] MEDS: PREDNISONE 20 MG TAB PO SCH (11:05)
[2018-02-28] MEDS: METOPROLOL SUCC 25 MG TAB.ER PO SCH (11:06)
[2018-02-28] MEDS ORDERED: ONDANSETRON HCL IV 4 MG/2 ML VIAL IVP PRN (12:16)
[2018-02-28] MEDS: CALCIUM CARBONATE 500 MG TAB.CHEW PO PRN (23:29)
[2018-03-01] MEDS: IPRATROPIUM/ALBUTEROL (0.5MG/3MG) NEB INH SCH ×2 (05:49→09:17)
[2018-03-01] MEDS: LEVOTHYROXINE SODIUM 25 MCG TABLET PO SCH (06:30)
[2018-03-01] MEDS: AMPICILLIN SODIUM/SULBACTAM NA 3 G in 0.9 % SODIUM CHLORIDE 100ML 100 ML IVPB SCH (06:30)
--- NOTE | 2018-03-01 07:14 | Discharge Note ---
VTE H&P Assessment - Risk for VTE Risk for VTE: Yes Risk Level: Moderate Risk Assessment Date: 02/27/18 Risk Assessment Time: 15:00 VTE Orders Placed or Will Be Placed: Yes Discharge Medications - Discharge Medications Prescriptions: Amoxicillin/Potassium Clav [Augmentin 500Mg/125Mg] 1 each PO TID #21 tab Doxycycline Hyclate [Vibramycin] 100 mg PO BID #14 capsule Home Medications: Ambulatory Orders Calcium Carbonate/Vitamin D3 [Caltrate 600 Plus D3 Tablet] 1 each PO DAILY tab 03/16/16 [Last Taken 1 Day Ago ~02/25/18] Tiotropium [place] [Spiriva] 18 mcg IH DAILY 03/16/16 [Last Taken 1 Day Ago ~] Levothyroxine Sodium [Synthroid] 25 mcg PO DAILY 05/23/16 [Last Taken 1 Day Ago ~02/25/18] Albuterol Sulfate [Ventolin Hfa] 1 - 2 puff IH .EVERY 4-6 HRS PRN 07/08/17 [ Last Taken 1 Day Ago ~02/25/18] Acetaminophen [Tylenol 500Mg Tab] 500 mg PO Q6H PRN tablet 07/09/17 [Last Taken 1 Day Ago ~02/25/18] Benzonatate [Tessalon Perles] 100 mg PO TID PRN #30 capsule 07/13/17 [Last Taken 1 Day Ago ~02/25/18] Fluticasone Propionate [Flovent Hfa] 2 puff IH BID #0 puff 07/13/17 [Last Taken 1 Day Ago ~02/25/18] Metoprolol Succinate [Toprol Xl] 25 mg PO DAILY #30 tab.er.24h 07/23/17 [Last Taken 1 Day Ago ~02/25/18] Acetaminophen [Tylenol 325Mg] 650 mg PO Q6H PRN tablet 03/01/18 [Last Taken Unknown] Amoxicillin/Potassium Clav [Augmentin 500Mg/125Mg] 1 each PO TID #21 tab [Last Taken Unknown] Doxycycline Hyclate [Vibramycin] 100 mg PO BID #14 capsule 03/01/18 [Last Taken Unknown] Metoprolol Succinate [Toprol Xl] 25 mg PO DAILY tab.er.24h 03/01/18 [Last Taken Unknown] Discharge Note - Date Date of Discharge Note: 03/01/18 Disposition: Home, Self-Care Condition: (2) Stable Additional Instructions: follow up with Dr. Crook on Mar 05Monday morning follow up with Dr. nAsari in 2 weeks please set up 48 hour holter monitor on discharge Referrals: Harish Crook D.O. [Primary Care Provider] - Activity at Discharge: Increase Activity as Tolerated
[2018-03-01] MEDS ORDERED: ASPIRIN 81 MG TABEC PO ONE (07:31)
--- NOTE | 2018-03-01 07:33 | Discharge Note ---
VTE H&P Assessment - Risk for VTE Risk for VTE: Yes Risk Level: Moderate Risk Assessment Date: 02/27/18 Risk Assessment Time: 15:00 VTE Orders Placed or Will Be Placed: Yes Discharge Medications - Discharge Medications Prescriptions: Amoxicillin/Potassium Clav [Augmentin 500Mg/125Mg] 1 each PO TID #21 tab Aspirin Enteric-Coated [Ecotrin (EC)] 81 mg PO DAILY #30 tabec Doxycycline Hyclate [Vibramycin] 100 mg PO BID #14 capsule Home Medications: Ambulatory Orders Calcium Carbonate/Vitamin D3 [Caltrate 600 Plus D3 Tablet] 1 each PO DAILY tab 03/16/16 [Last Taken 1 Day Ago ~02/25/18] Tiotropium [place] [Spiriva] 18 mcg IH DAILY 03/16/16 [Last Taken 1 Day Ago ~] Levothyroxine Sodium [Synthroid] 25 mcg PO DAILY 05/23/16 [Last Taken 1 Day Ago ~02/25/18] Albuterol Sulfate [Ventolin Hfa] 1 - 2 puff IH .EVERY 4-6 HRS PRN 07/08/17 [ Last Taken 1 Day Ago ~02/25/18] Acetaminophen [Tylenol 500Mg Tab] 500 mg PO Q6H PRN tablet 07/09/17 [Last Taken 1 Day Ago ~02/25/18] Benzonatate [Tessalon Perles] 100 mg PO TID PRN #30 capsule 07/13/17 [Last Taken 1 Day Ago ~02/25/18] Fluticasone Propionate [Flovent Hfa] 2 puff IH BID #0 puff 07/13/17 [Last Taken 1 Day Ago ~02/25/18] Metoprolol Succinate [Toprol Xl] 25 mg PO DAILY #30 tab.er.24h 07/23/17 [Last Taken 1 Day Ago ~02/25/18] Acetaminophen [Tylenol 325Mg] 650 mg PO Q6H PRN tablet 03/01/18 [Last Taken Unknown] Amoxicillin/Potassium Clav [Augmentin 500Mg/125Mg] 1 each PO TID #21 tab [Last Taken Unknown] Aspirin Enteric-Coated [Ecotrin (EC)] 81 mg PO DAILY #30 tabec 03/01/18 [Last Taken Unknown] Doxycycline Hyclate [Vibramycin] 100 mg PO BID #14 capsule 03/01/18 [Last Taken Unknown] Metoprolol Succinate [Toprol Xl] 25 mg PO DAILY tab.er.24h 03/01/18 [Last Taken Unknown] Discharge Note - Date Date of Discharge Note: 03/01/18 Disposition: Home, Self-Care Condition: (2) Stable Additional Instructions: follow up with Dr. Crook on Mar 05Monday morning follow up with Dr. Ansari in 2 weeks please set up 48 hour holter monitor on discharge Prescriptions: Amoxicillin/Potassium Clav [Augmentin 500Mg/125Mg] 1 each PO TID #21 tab Doxycycline Hyclate [Vibramycin] 100 mg PO BID #14 capsule Referrals: Harish Crook D.O. [Primary Care Provider] - Activity at Discharge: Increase Activity as Tolerated
[2018-03-01] MEDS: PREDNISONE 20 MG TAB PO SCH (09:02)
[2018-03-01] MEDS: DOXYCYCLINE HYCLATE 100 MG CAPSULE PO SCH (09:03)
[2018-03-01] MEDS: METOPROLOL SUCC 25 MG TAB.ER PO SCH (09:03)
[2018-03-01] MEDS ORDERED: AMOX TR/POT CLAV. 500MG/125MG TABLET PO SCH (10:00)
--- NOTE | 2018-03-01 14:10 | Discharge Summary ---
DATE: March 01, 2018 DISCHARGE DIAGNOSES: 1. Right lower lobe pneumonia. 2. Atrial tachycardia, one episode of atrial tachycardia versus sinus tachycardia requiring 1 dose of Cardizem IV and restarting her Toprol-XL 25 mg daily. Also started aspirin 81 mg daily. 3. Palpitations. 4. Vasovagal syncope secondary to cough and vomiting. 5. Small laceration on the left side of the face under the eyelid. ATTENDING PHYSICIAN: Harish Crook DO REASON FOR HOSPITALIZATION: Syncope, weakness, nausea, and cough. This 77-year-old female presented to the emergency department via ambulance after an episode where she passed out on the phone talking to her niece. She stated she was feeling nauseated all morning and feeling sick to her stomach, lightheaded and coughing. She called her niece and as she was talking to her, she went down and hit her head on the ground. The niece got to her house in about 10 minutes and she was awake and dizzy upon her arrival. EMS was called and she was transported to the hospital. EMS may have seen some atrial fibrillation on the monitor but upon arrival to the emergency department, she was in normal sinus rhythm. She was evaluated by Dr. Conti with a CT of the head which was negative. EKG showing normal sinus rhythm. No acute changes on the EKG. Cardiac enzymes were normal. Chest x-ray showing a right lower lobe infiltrate. She was started on doxycycline 200 mg twice a day and admitted to the hospital for a cardiology consult with Dr. Ansari. She had warning symptoms and she told her niece that she was going to pass out. She felt dizzy and lightheaded on the phone prior to the episode. She denies any chest pain. She has a cough that she has had for a couple of weeks but she has chronic bronchitis and COPD and coughs almost all the time and is short of breath chronically. SIGNIFICANT FINDINGS: CT of the head with no acute intracranial findings, likely chronic changes including mild diffuse cerebral volume loss and likely chronic small vessel ischemia, white matter change, dizzy, mild sinus disease involving bilateral ethmoid air sinus, bilateral sphenoid sinusitis, and right maxillary sinus. Chest x-ray showing mid right lung base opacity not seen on 08/11/87 comparison and suspicious for acute airway disease, lungs are hyperinflated compatible with COPD. EKG showing normal sinus rhythm, no acute changes. 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 to about 4:30 a.m. she had a tachycardia with sinus tachycardia, subatrial tachycardia, narrow complex, running about 160, converted to normal sinus rhythm at 4:30 after IV Cardizem 10 mg and 25 of Lopressor orally. She has been in sinus tach since then and maintaining her Toprol 25 mg once a day. WBC 11,900, hemoglobin 13.4, potassium 4.3, BUN 14, creatinine 0.5, troponins were negative x2 time points. EKG repeated EKG was normal sinus rhythm. Urine was negative. Trace of blood on the dip but no RBCs seen. Echocardiogram was done showing normal ejection fraction. Cardiology consult with Dr. Ansari. Rasheeda Cardiolite chemical stress test was performed which was negative per Dr. Marcial. Dr. Ansari would like to follow up with the patient in 2-3 weeks to go over the Holter monitor. HOSPITAL COURSE: On Dr. Ansari's consultation, he felt it most likely vasovagal syncope. They wanted to rule out cardiac disease because she has high risk factors for that. She gradually improved. She was started on doxycycline twice a day, Unasyn 3 g q.6 h. to start second day, and she was doing well on discharge. Gradually improving. Occasional DuoNeb treatments. CONDITION ON DISCHARGE: Much improved. She was also on oral prednisone 20 mg a day for about 3 days. DISCHARGE INSTRUCTIONS: Follow up with Dr. Crook on 03/05/2018. Follow up with Dr. Ansari in about 2 weeks. Will schedule at the clinic at [facility]. A 48-hour Holter monitor. Will continue Augmentin 500 mg t.i.d. and doxycycline 100 mg b.i.d. for 7 more days. She is to go back on her Spiriva 1 puff daily, Flovent 2 puffs b.i.d., and Ventolin 2 puffs q.6 h. p.r.n. She is also to continue her Toprol-XL 25 mg a day, levothyroxine 25 mcg a day, calcium with vitamin D 1 a day, Tessalon Perles 100 mg t.i.d., and Tylenol p.r.n. MTDD
--- NOTE | 2018-03-02 18:23 | Lexiscan Stress Test Report ---
DATE OF TEST: 02/28/18 Ms. Maguire is [id number] undergoing a Lexiscan stress Cardiolite for chest pain. Her resting ECG demonstrates sinus rhythm with incomplete right bundle branch block. Her resting heart rate is 77 beats per minute, blood pressure 112/61. Regadenoson 0.4 mg was given per protocol. She received 12.5 mCi of Technetium Sestamibi at rest. She received 32.5 mCi of Technetium Sestamibi on stress. Continuous ECG monitoring demonstrated no ST/T changes from baseline. PERFUSION IMAGING: Perfusion imaging demonstrated a normal perfusion scan. The left ventricular ejection fraction was 75%. FINAL IMPRESSION: 1. ASYMPTOMATIC LEXISCAN STRESS CARDIOLITE. 2. NORMAL PERFUSION SCAN. 3. LEFT VENTRICULAR EJECTION FRACTION OF 75%. JOB NUMBER: [id number] MTDD
--- NOTE | 2018-03-07 13:17 | Cardiology Consult ---
DATE OF CONSULTATION: 02/26/2018 HISTORY OF PRESENT ILLNESS: Elvia Maguire is a very pleasant 77-year-old female with past medical history of hypothyroidism, COPD and asthma, colon cancer status post resection, and former tobacco use. She also has a questionable history of an abnormal heart rhythm. She presented to [facility] after an episode of syncope. She had not been feeling well for the last three days with complaints of nausea, lightheadedness, headache, dizziness, cough, chills, and weakness. She was talking on the phone with her granddaughter when she felt nauseous and began dry-heaving. She felt lightheaded and then passed out. She is unsure of how long loss of consciousness was, as this event was unwitnessed. When se regained consciousness, she continued to feel nauseated and had associated diaphoresis. She denies chest pain or palpitations before or after the event. She has no history of coronary artery disease, hypertension, diabetes , or CVA or TIA. She does state that she has had syncope without warning in the past but was evaluated at a hospital and no reason was found. She has been taking Metoprolol succinate 25 mg daily for an abnormal heart rhythm prescribed by her PCP. She denies any history of SVT or atrial fibrillation or flutter. She had a basic treadmill stress test more than five years ago. She denies any previous echocardiogram. She has a family history of CAD in her siblings and father. She has never seen a Gluer Machine Operator. Her vital signs are stable with a blood pressure of 113/57 mmHg. Metoprolol succinate is currently on hold, however. Telemetry was reviewed and demonstrated normal sinus rhythm with a rate of 65 beats per minute and no arrhythmias. Troponin has been negative x1. EKG on admission demonstrated normal sinus rhythm with left anterior fascicular block, and T-wave inversions in leads V1 and V2. She is being treated for pneumonia and COPD exacerbation with steroids and antibiotics. ALLERGIES: AZITHROMYCIN. CEFUROXIME. CLARITHROMYCIN. CODEINE. ERYTHROMYCIN. DILAUDID. LEVOFLOXACIN. MEDICATIONS: Toprol XL 25 mg daily, currently on hold. Flovent HFA two puffs b.i.d. Tessalon Perles 100 mg p.o. t.i.d. p.r.n. cough. Acetaminophen 500 mg every six hours p.r.n. pain. Levothyroxine 25 mcg daily. FAMILY HISTORY: Brother NC, sister NC, father NC. SOCIAL HISTORY: Former tobacco use, denies alcohol use, no routine exercise. PAST MEDICAL HISTORY: COPD, asthma, former tobacco use, colon cancer status post resection, and hypothyroidism. REVIEW OF SYSTEMS: CONSTITUTIONAL: Complains of chills, fatigue, weakness, lightheadedness, dizziness, syncope, and diaphoresis. EYE: No recent visual problems. ENMT: No ear pain, nasal congestion, or sore throat. RESPIRATORY: Shortness of breath and cough. CARDIOVASCULAR: Complains of palpitations. No chest pain, PND, or orthopnea. PERIPHERAL VASCULAR: No peripheral edema or claudication. GASTROINTESTINAL: Complains of nausea. No vomiting or diarrhea. MUSCULOSKELETAL: No back pain, neck pain, joint pain, muscle pain, or decreased range of motion. INTEGUMENTARY: No rash, pruritus. NEUROLOGIC: Alert and oriented. PSYCHIATRIC: No anxiety or depression. PHYSICAL EXAM: GENERAL: Alert and oriented, well nourished, in no acute distress. HEAD: Normocephalic, laceration and ecchymosis of the left orbit. ENT: EOMI, PERRL. No scleral icterus, erythema, throat free from erythema, and lesions. NECK: Supple, nontender, no carotid bruits, no JVD. RESPIRATORY; Clear to auscultation, nonlabored respiration, coarse cough on expiration. CARDIAC: Regular rate and rhythm. No murmurs, rubs, gallops. PERIPHERAL VASCULAR: No peripheral edema. No cyanosis, clubbing. Peripheral pulses 2+ and symmetric. ABDOMEN: Soft, nontender, nondistended, normal bowel sounds. SKIN: Skin is warm, dry, and pink. No rashes. MSK: Normal range of motion of all four extremities. Normal gait. NEUROLOGIC: Awake, alert, and oriented x3. PSYCHIATRIC: Cooperative, appropriate mood and affect. LABS: Hemoglobin is 13.4. Hematocrit 41.1. WBC 11.9. Platelets 247. Sodium 135. Potassium 4.3. Chloride 96. CO2 25. BUN 14. Creatinine 0.5. Glucose 142. Troponin 0.010 x1, UA negative. IMAGING: Chest x-ray is pending, head CT is pending, EKG demonstrates normal sinus rhythm with left anterior fascicular block and T-wave inversions in V1 and V2. She had a carotid ultrasound performed on 08/31/16, which suggested no significant stenosis. ASSESSMENT AND PLAN: 1. SYNCOPE, LIKELY VASOVAGAL RESPONSE TO DRY HEAVING. HOWEVER, SHE DOES HAVE RISK FACTORS FOR CORONARY ARTERY DISEASE AND HAS BEEN EXPERIENCING PALPITATIONS. WILL PLAN FOR AN ECHOCARDIOGRAM DURING THIS ADMISSION TO EVALUATE HEART STRUCTURE AND FUNCTION. WILL CONTINUE TO MONITOR TELEMETRY. IF NO EVENTS ARE FOUND ON TELEMETRY BY DISCHARGE, WILL PLAN TO DISCHARGE WITH A 48-HOUR HOLTER MONITOR. WILL PLAN FOR A LEXISCAN CARDIOLITE AN OUTPATIENT. 2. PALPITATIONS. CONTINUE TO MONITOR TELEMETRY. PLAN TO DISCHARGE WITH 48-HOUR HOLTER MONITOR. PLANNING FOR ECHO AND OUTPATIENT STRESS TEST, DISCUSSED ABOVE. 3. PNEUMONIA AND ACUTE EXACERBATION OF COPD. CONTINUE ANTIBIOTICS AND STEROIDS PER PRIMARY TEAM. 4. SHE WILL FOLLOW-UP WITH [facility] IN TWO TO THREE WEEKS AFTER DISCHARGE, OR SOONER IF NEEDED. Attending Note: Seen and examined patient and confirmed findings. I agree with the above assesment and plan which was discussed with me. JOB NUMBER: [id number] [facility]
--- NOTE | 2018-03-07 20:47 | Holter Monitor Report ---
DATE OF TEST: 03/01/2018 INTERPRETING PHYSICIAN: Romaine Marcial M.D. INDICATION: Syncope. Ms. Maguire is 77 years old wearing a 24-hour Holter monitor on 03/01/2018 for 24 hours. A total of 103,458 heart beats were recorded. The average heart rate was 72 beats per minute in sinus rhythm. The minimum heart rate recorded was 50 beats per minute and the maximum was 96 beats per minute. There were no significant pauses recorded. 52 PVCs were noted and 80 PACs, which equated to less than 1% of the monitoring period. There were no ventricular arrhythmias. There were two episodes of atrial tachycardia, the longest lasting 4 beats and the fasted at 111 beats per minute. FINAL IMPRESSION: 1. ESSENTIALLY NORMAL 24-HOUR HOLTER MONITOR. 2. TWO EPISODES OF ATRIAL TACHYCARDIA, THE LONGEST LASTING 4 BEATS AND THE FASTEST AT 111 BEATS PER MINUTE. 3. MULTIPLE EPISODES OF JOURNAL ENTRIES REPORTED CHEST PAIN, WHICH DOES NOT CORRESPOND WITH ANY UNDERLYING ARRHYTHMIAS OR ST/T CHANGES. JOB NUMBER: [id number] MTDD
== END 2018-03-01 12:45 | disposition home or self-care (01) | DRG 312 ==
LOC: ER 07:49 → MEDSURG 09:54
PROVIDERS: ADMIT Emergency Medicine; ATTEND Emergency Medicine
DX: R55 Syncope and collapse (principal); R11.2 Nausea with vomiting, unspecified; R19.7 Diarrhea, unspecified; J44.9 Chronic obstructive pulmonary disease, unspecified; J45.909 Unspecified asthma, uncomplicated; I48.91 Unspecified atrial fibrillation; Z79.01 Long term (current) use of anticoagulants; S00.12XA Contusion of left eyelid and periocular area, initial encounter; Z85.038 Personal history of other malignant neoplasm of large intestine; Z87.891 Personal history of nicotine dependence
CPT/HCPCS: 83735; 85025; 80053; 84484; 71046; 70450; 93005; 93010; J2405; 78452; 81001; 93017; 93225; 93226; 93306; 94640; 94760; 94761; 96365; 96366; 96374; 99285; A9500; J0295; J2785; J2930; J7030; J7512

== ENCOUNTER 2018-03-11 21:08 | Emergency (ER) | payer MEDICARE, BC ==
[2018-03-11] MEDS ORDERED: ACETAMINOPHEN 325 MG TAB PO ONE (21:31)
--- NOTE | 2018-03-11 21:33 | Emergency Department Record ---
History of Present Illness - General Chief complaint: Pain Stated complaint: HEADACHE,BACK/CHEST Time Seen by Provider: 03/11/18 21:22 Source: Patient Mode of Arrival: Ambulatory Limitations: No limitations - History of Present Illness Initial comments: The patient is here due to pain all over for at least 10 days. She was admitted to the hospital about 2 weeks ago after falling and possibly having a syncopal event. She was diagnosed with pneumonia and did have her heart evaluated while an impatient here. Her work up for her heart was neg including a 24 hour Holter monitor and a nuclear Stress Test. Since the patient was discharged from the hospital 10 days ago she has had pain all over her head, neck, chest and back. Presently she is only complaining of the head and neck pain. There has been no VALENTE, SOB or cough at home. MD Complaint: Other Onset/Timin -: Days(s) History of Same: No Severity scale (1-10): 10 Quality: Aching Consistency: Constant, Intermittent Improves with: Cold therapy Worsens with: Nothing Associated Symptoms: Arthralgias, Chest pain, Myalgias - Related Data Previous Rx's Medication Instructions Recorded Acetaminophen [Tylenol 500Mg Tab] 500 mg PO Q6H PRN tablet 07/09/17 Benzonatate [Tessalon Perles] 100 mg PO TID PRN #30 capsule 07/13/17 Fluticasone Propionate [Flovent 2 puff IH BID #0 puff 07/13/17 Hfa] Metoprolol Succinate [Toprol Xl] 25 mg PO DAILY #30 tab.er.24h 07/23/17 Acetaminophen [Tylenol 325Mg] 650 mg PO Q6H PRN tablet 03/01/18 Amoxicillin/Potassium Clav 1 each PO TID #21 tab 03/01/18 [Augmentin 500Mg/125Mg] Aspirin Enteric-Coated [Ecotrin 81 mg PO DAILY #30 tabec 03/01/18 (EC)] Doxycycline Hyclate [Vibramycin] 100 mg PO BID #14 capsule 03/01/18 Metoprolol Succinate [Toprol Xl] 25 mg PO DAILY tab.er.24h 03/01/18 Allergies Allergy/AdvReac Type Severity Reaction Status Date / Time azithromycin Allergy Unknown DIFFICULTY Verified 03/11/18 21:12 BREATHING cefuroxime axetil Allergy Unknown DIFFICULTY Verified 03/11/18 21:12 BREATHING clarithromycin Allergy Unknown DIFFICULTY Verified 03/11/18 21:12 BREATHING codeine Allergy Unknown BLISTERS Verified 03/11/18 21:12 erythromycin base Allergy Unknown DIFFICULTY Verified 03/11/18 21:12 BREATHING hydromorphone HCl Allergy Unknown DIFFICULTY Verified 03/11/18 21:12 [From DILAUDID] BREATHING levofloxacin [From Levaquin] Allergy DIFFICULTY Verified 03/11/18 21:12 BREATHING Allergies: Allergy Unknown DIFFICULTY Uncoded 03/11/18 21:12 BREATHING Travel Screening - Travel/Exposure Within Last 30 Days Have you traveled within the last 30 days?: No - Travel/Exposure Within Last Year Have you traveled outside the [place] in the last year?: No - Additonal Travel Details Have you been exposed to anyone with a communicable illness?: No - Travel Symptoms Symptom Screening: None Review of Systems Constitutional: Reports: Chills, Malaise. Denies: Fever Eyes: Denies: Eye discharge ENT: Denies: Congestion Respiratory: Denies: Cough, Dyspnea Cardiovascular: Denies: Arrhythmia, Chest pain, Dyspnea on exertion Endocrine: Reports: Fatigue Gastrointestinal: Denies: Abdominal pain, Nausea, Vomiting Genitourinary: Denies: Dysuria Musculoskeletal: Reports: Back pain (chronic.). Denies: Arthralgia Skin: Denies: Bruising Past Medical History - SOCIAL HISTORY Smoking Status: Former smoker Alcohol Use: None Drug Use: None - RESPIRATORY Hx Respiratory Disorders: Yes Hx Asthma: Yes Hx Bronchitis: Yes Hx COPD: Yes Hx Pneumonia: Yes - CARDIOVASCULAR Hx Cardio Disorders: Yes Hx Irregular Heartbeat: Yes (A-fib) - NEURO Hx Neuro Disorders: Yes - GI Hx GI Disorders: No Comment:: colon CA-removed 12 inches and did oral chemo - Hx Genitourinary Disorders: No - ENDOCRINE Hx Endocrine Disorders: Yes Hx Thyroid Disease: Yes - MUSCULOSKELETAL Hx Musculoskeletal Disorders: No Comment:: prev fx rt hip 1985 - PSYCH Hx Psych Problems: No - HEMATOLOGY/ONCOLOGY Hx Hematology/Oncology Disorders: Yes Hx Cancer: Yes (colon) Family Medical History Any Significant Family History?: No Hx Heart Disease: Father, Mother, Brother/Sister Hx HTN: Mother Physical Exam - General General Appearance: Alert, Oriented x3, Cooperative, No acute distress - Head Head exam: Atraumatic, Normocephalic, Normal inspection - Eye Eye exam: Normal appearance, PERRL, EOMI - ENT Throat exam: Normal inspection. negative: Tonsillar erythema, Tonsillar exudate - Neck Neck exam: Normal inspection, Full ROM. negative: Tenderness - Respiratory Respiratory exam: Normal lung sounds bilaterally. negative: Respiratory distress - Cardiovascular Cardiovascular Exam: Regular rate, Normal rhythm, Normal heart sounds. negative : Diastolic murmur, Systolic murmur - GI/Abdominal GI/Abdominal exam: Soft, Normal bowel sounds. negative: Tenderness - Extremities Extremities exam: Full ROM. negative: Tenderness - Neurological Neurological exam: Alert, Normal gait, Oriented X3. negative: Abnormal gait, Motor sensory deficit - Psychiatric Psychiatric exam: Anxious - Skin Skin exam: negative: Petechiae Course Vital Signs 03/11/18 21:12 Temperature 98.5 F Pulse Rate 90 Respiratory 18 Rate Blood Pressure 140/88 Pulse Ox 98 - Reevaluation(s) Reevaluation #1: The patient is feeling better after the Tylenol and is resting comfortably. She denies any CP, SOB, VALENTE, or back pain. Her neck pain is improved. I did discuss the neg xrays with the patient and the need for F/U with her PCP. 03/11/18 22:34 Medical Decision Making - Data Complexity MDM Data: Labs Ordered and/or Reviewed, X-Ray Ordered and/or Reviewed, EKG Ordered and/or Reviewed - Lab Data Result diagrams: 03/11/18 21:25 03/11/18 21:25 - EKG Data -: EKG Interpreted by Me EKG: No Acute Changes, Unchanged From Previous - Radiology Data Radiology results: Report reviewed (CXR: Small amount of residual pneumonia in the RLL. Head and Cervical CT: Neg for acute changes.) Disposition Disposition: Discharge Clinical Impression: Chronic pain disorder Strain, cervical Qualifiers: Encounter type: initial encounter Qualified Code(s): S16.1XXA - Strain of muscle, fascia and tendon at neck level, initial encounter Disposition: Home, Self-Care Condition: (2) Stable Instructions: Pain Management in the Elderly (ED) Additional Instructions: Please take Tylenol for pain and you may use Advil for [address] see [address] Crook for recheck this week. Return to the ER for any worsening symptoms. Forms: Patient Portal Access Time of Disposition: 22:37 Quality - Quality Measures Quality Measures: N/A - Blood Pressure Screening View Details: Yes Does Patient Have Any of the Following: No Blood Pressure Classification: Pre-Hypertensive BP Reading Systolic Measurement: 140 Diastolic Measurement: 88 Screening for High Blood Pressure: < Pre-Hypertensive BP, F/U Documented > [ [id number]] Pre-Hypertensive Follow-up Interventions: Referral to alternative/primary care provider.
[2018-03-11 21:38] LABS: BASO % 0.3 % (0-6); EOS % 6.1 % (0-6); GRAN % 66.2 % (47-80); HEMATOCRIT 37.6 % (35.0-47.0); HEMOGLOBIN 12.5 gm/dl (11.6-16.0); LYMPH % 16.5 % (16-45); MEAN CELL VOLUME 81.9 fl (81-97); MEAN CORPUSCULAR HEMOGLOBIN 27.2 pg (27-33); MEAN CORPUSCULAR HGB CONC 33.2 g/dl (32-36); MEAN PLATELET VOLUME 8.5 fl (7.4-10.4); MONO % 10.9 % (0-9); PLATELET COUNT 425 K/uL (130-400); RED BLOOD COUNT 4.59 M/uL (3.80-5.40); RED CELL DISTRIBUTION WIDTH 13.1 % (11.5-14.5); WHITE BLOOD COUNT W/O DIFF 12.2 K/uL (4.2-12.2)
[2018-03-11 21:47] LABS: BLOOD UREA NITROGEN 15 mg/dL (8-23); CREATININE 0.7 mg/dL (0.5-0.9); EST GLOMERULAR FILTRATION RATE > 60 mL/min
[2018-03-11 21:50] LABS: GLUCOSE,RANDOM 138 mg/dL (74-109)
[2018-03-11 21:53] LABS: CREATINE PHOSPHOKINASE 51 U/L (26-192)
[2018-03-11 21:54] LABS: CKMB 2.9 ng/mL (<3.77)
--- NOTE | 2018-03-13 07:34 | RADIOLOGY REPORT ---
EXAM: CHEST, TWO VIEWS HISTORY: DIFFICULTY IN BREATHING. TECHNIQUE: Frontal and lateral views of the chest were performed. FINDINGS: The heart size is normal. The lungs are hyperinflated. There is an opacity projecting over the right lower lobe. There is osteopenia. IMPRESSION: 1. HYPERINFLATED LUNGS. 2. FOCAL AIR SPACE OPACITY PROJECTING OVER THE RIGHT LOWER LOBE. THIS WAS NOT PRESENT ON THE PRIOR EXAMINATION. FINDINGS MAY REPRESENT PNEUMONIA. FOLLOW-UP UNTIL RESOLUTION IS RECOMMENDED. JOB NUMBER: [id number] [facility]
--- NOTE | 2018-03-13 07:37 | CT SCAN REPORT ---
EXAM: CT OF THE BRAIN WITHOUT CONTRAST HISTORY: HEADACHES. TECHNIQUE: Sequential axial images were obtained from the foramen magnum to the vertex without contrast administration. FINDINGS: The brain volume is normal. There is no large territorial infarct, hemorrhage, mass effect, or midline shift. No extraaxial fluid collection. There is sphenoid sinus disease. The mastoid air cells appear normal. IMPRESSION: SPHENOID SINUS DISEASE. NO ACUTE INTRACRANIAL ABNORMALITY IS APPRECIATED. JOB NUMBER: [id number] [facility]
--- NOTE | 2018-03-13 07:39 | CT SCAN REPORT ---
EXAM: CT OF THE CERVICAL SPINE HISTORY: PAIN. TECHNIQUE: Sequential axial images were obtained through the cervical spine without contrast administration. FINDINGS: There is multilevel degenerative change. No evidence of fracture, subluxation, or perched facet. The lateral masses are well aligned. IMPRESSION: MULTILEVEL DEGENERATIVE CHANGE. NO EVIDENCE OF FRACTURE, SUBLUXATION OR PERCHED FACET. JOB NUMBER: [id number] MTDD
== END 2018-03-11 22:56 | disposition home or self-care (01) ==
LOC: ER 21:08
DX: S16.1XXA Strain of muscle, fascia and tendon at neck level, initial encounter (principal); G89.29 Other chronic pain; R51 Headache; R07.9 Chest pain, unspecified; J18.9 Pneumonia, unspecified organism; I48.91 Unspecified atrial fibrillation; J44.9 Chronic obstructive pulmonary disease, unspecified; Z85.038 Personal history of other malignant neoplasm of large intestine; Z87.891 Personal history of nicotine dependence; X58.XXXA Exposure to other specified factors, initial encounter
CPT/HCPCS: 70450; 71046; 72125; 80048; 82550; 82553; 84484; 85025; 93005; 93010; 99284

== ENCOUNTER 2018-04-28 12:16 | Emergency (ER) | payer MEDICARE, BC ==
[2018-04-28] MEDS ORDERED: IPRATROPIUM/ALBUTEROL (0.5MG/3MG) NEB INH ONE (12:42)
[2018-04-28] MEDS ORDERED: METHYLPREDNISOLONE PF 125MG/VIAL IVP ONE (13:03)
[2018-04-28 13:16] LABS: HEMATOCRIT 39.4 % (35.0-47.0); HEMOGLOBIN 12.7 gm/dl (11.6-16.0); MEAN CELL VOLUME 81.1 fl (81-97); MEAN CORPUSCULAR HEMOGLOBIN 26.1 pg (27-33); MEAN CORPUSCULAR HGB CONC 32.2 g/dl (32-36); MEAN PLATELET VOLUME 9.1 fl (7.4-10.4); PLATELET COUNT 320 K/uL (130-400); RED BLOOD COUNT 4.86 M/uL (3.80-5.40); RED CELL DISTRIBUTION WIDTH 14.6 % (11.5-14.5); WHITE BLOOD COUNT W/O DIFF 7.4 K/uL (4.2-12.2)
[2018-04-28 13:29] LABS: BLOOD UREA NITROGEN 18 mg/dL (8-23); CREATININE 0.5 mg/dL (0.5-0.9); EST GLOMERULAR FILTRATION RATE > 60 mL/min
[2018-04-28 13:30] LABS: INFLUENZA A NEGATIVE (NEGATIVE); INFLUENZA B NEGATIVE (NEGATIVE)
[2018-04-28 13:32] LABS: GLUCOSE,RANDOM 117 mg/dL (74-109)
--- NOTE | 2018-04-28 14:51 | Emergency Department Record ---
History of Present Illness - General Chief Complaint: Cough Stated Complaint: COUGH,VALENTE Time Seen by Provider: 04/28/18 13:00 Source: Patient Mode of Arrival: Ambulatory Limitations: No limitations - History of Present Illness MD Complaint: Cough, Nasal congestion Onset/Timin -: Days(s) Consistency: Intermittent Improves With: Nothing Worsens With: Nothing Associated Symptoms: Cough, Nasal congestion Treatments Prior to Arrival: None - Related Data Previous Rx's Medication Instructions Recorded Fluticasone Propionate [Flovent 2 puff IH BID #0 puff 07/13/17 Hfa] Aspirin Enteric-Coated [Ecotrin 81 mg PO DAILY #30 tabec 03/01/18 (EC)] Metoprolol Succinate [Toprol Xl] 25 mg PO DAILY tab.er.24h 03/01/18 Amoxicillin/Potassium Clav 1 each PO BID #14 tablet 04/28/18 [Augmentin 875Mg/125Mg] Prednisone [Prednisone 20Mg] 20 mg PO Q12HR #8 tab 04/28/18 Allergies Allergy/AdvReac Type Severity Reaction Status Date / Time azithromycin Allergy Unknown DIFFICULTY Verified 04/28/18 12:28 BREATHING cefuroxime axetil Allergy Unknown DIFFICULTY Verified 04/28/18 12:28 BREATHING clarithromycin Allergy Unknown DIFFICULTY Verified 04/28/18 12:28 BREATHING codeine Allergy Unknown BLISTERS Verified 04/28/18 12:28 erythromycin base Allergy Unknown DIFFICULTY Verified 04/28/18 12:28 BREATHING hydromorphone HCl Allergy Unknown DIFFICULTY Verified 04/28/18 12:28 [From DILAUDID] BREATHING levofloxacin [From Levaquin] Allergy DIFFICULTY Verified 04/28/18 12:28 BREATHING Allergies: Allergy Unknown DIFFICULTY Uncoded 04/28/18 12:28 BREATHING Travel Screening - Travel/Exposure Within Last 30 Days Have you traveled within the last 30 days?: No Review of Systems Reviewed: No additional complaints except as noted below Constitutional: Reports: As per HPI. Denies: Chills, Fever, Malaise, Night sweats, Weakness, Weight change Eyes: Reports: As per HPI. Denies: Eye discharge, Eye pain, Photophobia, Vision change ENT: Reports: As per HPI. Denies: Congestion, Dental pain, Ear pain, Epistaxis , Hearing loss, Throat pain Respiratory: Reports: As per HPI, Cough, Dyspnea, Wheezes. Denies: Hemoptysis, Stridor Cardiovascular: Reports: As per HPI. Denies: Arrhythmia, Chest pain, Dyspnea on exertion, Edema, Murmurs, Orthopnea, Palpitations, Paroxysmal nocturnal dyspnea, Rheumatic Fever, Syncope Endocrine: Reports: As per HPI. Denies: Fatigue, Heat or cold intolerance, Polydipsia, Polyuria Gastrointestinal: Reports: As per HPI. Denies: Abdominal pain, Constipation, Diarrhea, Hematemesis, Hematochezia, Melena, Nausea, Vomiting Genitourinary: Reports: As per HPI. Denies: Abnormal menses, Discharge, Dyspareunia, Dysuria, Frequency, Hematuria, Incontinence, Retention, Urgency Musculoskeletal: Reports: As per HPI. Denies: Arthralgia, Back pain, Gout, Joint swelling, Myalgia, Neck pain Skin: Reports: As per HPI. Denies: Bruising, Change in color, Change in hair/ nails, Lesions, Pruritus, Rash Neurological: Reports: As per HPI. Denies: Abnormal gait, Confusion, Headache, Numbness, Paresthesias, Seizure, Tingling, Tremors, Vertigo, Weakness Psychiatric: Reports: As per HPI. Denies: Anxiety, Auditory hallucinations, Depression, Homicidal thoughts, Suicidal thoughts, Visual hallucinations Hematological/Lymphatic: Reports: As per HPI. Denies: Anemia, Blood Clots, Easy bleeding, Easy bruising, Swollen glands Past Medical History - SOCIAL HISTORY Smoking Status: Former smoker Alcohol Use: None Drug Use: None - RESPIRATORY Hx Respiratory Disorders: Yes Hx Asthma: Yes Hx Bronchitis: Yes Hx COPD: Yes Hx Pneumonia: Yes - CARDIOVASCULAR Hx Cardio Disorders: Yes Hx Irregular Heartbeat: Yes (A-fib) - NEURO Hx Neuro Disorders: Yes - GI Hx GI Disorders: No Comment:: colon CA-removed 12 inches and did oral chemo - Hx Genitourinary Disorders: No - ENDOCRINE Hx Endocrine Disorders: Yes Hx Thyroid Disease: Yes - MUSCULOSKELETAL Hx Musculoskeletal Disorders: No Comment:: prev fx rt hip 1985 - PSYCH Hx Psych Problems: No - HEMATOLOGY/ONCOLOGY Hx Hematology/Oncology Disorders: Yes Hx Cancer: Yes (colon) Family Medical History Any Significant Family History?: Yes Hx Heart Disease: Father, Mother, Brother/Sister Hx HTN: Mother Physical Exam - General General Appearance: Alert, Oriented x3, Cooperative, Mild distress - Head Head exam: Normal inspection - Eye Eye exam: Normal appearance, PERRL, EOMI Pupils: Normal accommodation - ENT ENT exam: Normal exam, Mucous membranes moist, Normal external ear exam, Normal orophraynx Ear exam: Normal external inspection. negative: External canal tenderness Nasal Exam: Normal inspection. negative: Discharge, Sinus tenderness Mouth exam: Normal external inspection, Tongue normal Teeth exam: Normal inspection. negative: Dental caries Throat exam: Normal inspection. negative: Tonsillar erythema, Tonsillar exudate - Neck Neck exam: Normal inspection, Full ROM. negative: Tenderness - Respiratory Respiratory exam: Respiratory distress, Wheezes - Cardiovascular Cardiovascular Exam: Regular rate, Normal rhythm, Normal heart sounds - GI/Abdominal GI/Abdominal exam: Soft, Normal bowel sounds. negative: Tenderness - Rectal Rectal exam: Deferred - exam: Deferred - Extremities Extremities exam: Normal inspection, Full ROM, Normal capillary refill. negative: Tenderness - Back Back exam: Reports: Normal inspection, Full ROM. Denies: Muscle spasm, Rash noted, Tenderness - Neurological Neurological exam: Alert, CN II-XII intact, Normal gait, Oriented X3 - Psychiatric Psychiatric exam: Normal affect, Normal mood - Skin Skin exam: Dry, Intact, Normal color, Warm Course Vital Signs 04/28/18 04/28/18 04/28/18 12:20 12:51 13:20 Temperature 97.9 F Pulse Rate 71 64 Pulse Rate [ 68 Pulse Ox Probe] Respiratory 24 24 20 Rate Blood Pressure 144/87 Blood Pressure 120/92 [Left Arm] Pulse Ox 95 98 98 04/28/18 14:37 Temperature Pulse Rate Pulse Rate [ 95 H Pulse Ox Probe] Respiratory 20 Rate Blood Pressure Blood Pressure 128/66 [Left Arm] Pulse Ox 95 - Reevaluation(s) Reevaluation #1: 04/28/18 14:50 pt feels much better. xr neg. loose yellow productive cough Medical Decision Making - Lab Data Result diagrams: 04/28/18 12:35 04/28/18 12:35 Lab Results 04/28/18 04/28/18 04/28/18 Range/Units 12:35 12:35 12:35 WBC 7.4 (4.2-12.2) K/uL RBC 4.86 (3.80-5.40) M/uL Hgb 12.7 (11.6-16.0) gm/dl Hct 39.4 (35.0-47.0) % MCV 81.1 (81-97) fl MCH 26.1 L (27-33) pg MCHC 32.2 (32-36) g/dl RDW 14.6 H (11.5-14.5) % Plt Count 320 (130-400) K/uL MPV 9.1 (7.4-10.4) fl Neutrophils % 61.0 (47-80) % Band Neutrophils % 0.0 (0-5) % Eosinophils % Not Reportable Basophils % Not Reportable Lymphocytes 20.0 (16-45) % Monocytes 9.0 (0-9) % Basophils 0.0 (0-6) % Eosinophil Count 10.0 H (0-6) % Sodium 134 L (136-145) mmol/L Potassium 3.9 (3.4-4.5) mmol/L Chloride 98 (98-107) mmol/L Carbon Dioxide 26.0 (22-29) mmol/L Anion Gap 10.0 (7-16) BUN 18 (8-23) mg/dL Creatinine 0.5 (0.5-0.9) mg/dL Estimated GFR > 60 mL/min Random Glucose 117 H (74-109) mg/dL Calcium 9.4 (8.8-10.2) mg/dL Influenza Type A Ag Negative (NEGATIVE) Influenza Type B Ag Negative (NEGATIVE) Disposition Disposition: Discharge Clinical Impression: COPD (chronic obstructive pulmonary disease) with acute bronchitis Disposition: Home, Self-Care Condition: (1) Good Instructions: COPD (Chronic Obstructive Pulmonary Disease) (ED), Acute Bronchitis (ED) Additional Instructions: follow up with family doctor. return sooner if worse. using breathing treatments twice a day when needed Prescriptions: Prednisone [Prednisone 20Mg] 20 mg PO Q12HR #8 tab Amoxicillin/Potassium Clav [Augmentin 875Mg/125Mg] 1 each PO BID #14 tablet Quality - Quality Measures Quality Measures: N/A - Blood Pressure Screening Does Patient Have Any of the Following: No Blood Pressure Classification: Pre-Hypertensive BP Reading Systolic Measurement: 144 Diastolic Measurement: 87 Screening for High Blood Pressure: < Pre-Hypertensive BP, F/U Documented > [ G8950] Pre-Hypertensive Follow-up Interventions: Follow-up with rescreen every year.
--- NOTE | 2018-04-30 09:14 | RADIOLOGY REPORT ---
EXAM: CHEST, TWO VIEWS HISTORY: DIFFICULTY IN BREATHING. TECHNIQUE: Frontal and lateral views of the chest were performed. Comparison: 03/11/18. FINDINGS: The heart size is normal. The lungs are hyperinflated. There is scarring in the right lung base. No infiltrate or pleural effusion. IMPRESSION: HYPERINFLATED LUNGS WITH UNDERLYING EMPHYSEMA. SCAR TISSUE RIGHT LUNG BASE. NO ACUTE PROCESS. JOB NUMBER: [id number] [facility]
== END 2018-04-28 14:58 | disposition home or self-care (01) ==
LOC: ER 12:16
DX: J44.0 Chronic obstructive pulmonary disease with (acute) lower respiratory infection (principal); J20.9 Acute bronchitis, unspecified; R06.00 Dyspnea, unspecified; I48.91 Unspecified atrial fibrillation; Z87.891 Personal history of nicotine dependence; E03.9 Hypothyroidism, unspecified
CPT/HCPCS: 71046; 80048; 84443; 85027; 87400; 94640; 96374; 99284; J2930

== ENCOUNTER 2018-08-26 10:48 | Emergency (ER) | payer MEDICARE, BC ==
[2018-08-26] MEDS ORDERED: IPRATROPIUM/ALBUTEROL (0.5MG/3MG) NEB INH ONE (11:04)
[2018-08-26] MEDS ORDERED: METHYLPREDNISOLONE PF 125MG/VIAL IVP ONE (11:04)
[2018-08-26 11:18] LABS: BASO % 0.3 % (0-6); EOS % 11.3 % (0-6); GRAN % 57.5 % (47-80); HEMATOCRIT 42.1 % (35.0-47.0); HEMOGLOBIN 13.8 gm/dl (11.6-16.0); LYMPH % 21.5 % (16-45); MEAN CELL VOLUME 82.2 fl (81-97); MEAN CORPUSCULAR HGB CONC 32.8 g/dl (32-36); MEAN PLATELET VOLUME 8.9 fl (7.4-10.4); MONO % 9.4 % (0-9); PLATELET COUNT 284 K/uL (130-400); RED BLOOD COUNT 5.12 M/uL (3.80-5.40); RED CELL DISTRIBUTION WIDTH 15.1 % (11.5-14.5); WHITE BLOOD COUNT W/O DIFF 7.5 K/uL (4.2-12.2)
[2018-08-26 11:31] LABS: BLOOD UREA NITROGEN 16 mg/dL (8-23); CREATININE 0.5 mg/dL (0.5-0.9); EST GLOMERULAR FILTRATION RATE > 60 mL/min
[2018-08-26 11:33] LABS: INFLUENZA A NEGATIVE (NEGATIVE); INFLUENZA B NEGATIVE (NEGATIVE)
[2018-08-26 11:34] LABS: GLUCOSE,RANDOM 113 mg/dL (74-109)
--- NOTE | 2018-08-26 12:53 | Emergency Department Record ---
History of Present Illness - General Chief Complaint: Shortness of breath Stated Complaint: SHORTNESS OF BREATH Time Seen by Provider: 08/26/18 10:59 Source: Patient Mode of Arrival: Ambulatory Limitations: No limitations - History of Present Illness Initial Comments: pt c/o increasing sob and productive cough for 3 days. MD Complaint: Cough, Shortness of breath Onset/Timin -: Days(s) Consistency: Intermittent Improves With: Nothing Worsens With: Coughing Known History Of: COPD Associated Symptoms: Cough, Sputum production Treatments Prior to Arrival: None - Related Data Home Oxygen Therapy: No Previous Rx's Medication Instructions Recorded Fluticasone Propionate [Flovent 2 puff IH BID #0 puff 07/13/17 Hfa] Aspirin Enteric-Coated [Ecotrin 81 mg PO DAILY #30 tabec 03/01/18 (EC)] Metoprolol Succinate [Toprol Xl] 25 mg PO DAILY tab.er.24h 03/01/18 Albuterol Sulfate 0.083% [Neb] 3 ml NEB .EVERY 4-6 HOURS PRN #20 08/26/18 [Albuterol Sulfate] ml Doxycycline Hyclate 100 mg PO BID #14 cap 08/26/18 Prednisone [Prednisone 20Mg] 20 mg PO Q12HR #7 tab 08/26/18 Allergies Allergy/AdvReac Type Severity Reaction Status Date / Time azithromycin Allergy Unknown DIFFICULTY Verified 04/28/18 12:28 BREATHING cefuroxime axetil Allergy Unknown DIFFICULTY Verified 04/28/18 12:28 BREATHING clarithromycin Allergy Unknown DIFFICULTY Verified 04/28/18 12:28 BREATHING codeine Allergy Unknown BLISTERS Verified 04/28/18 12:28 erythromycin base Allergy Unknown DIFFICULTY Verified 04/28/18 12:28 BREATHING hydromorphone HCl Allergy Unknown DIFFICULTY Verified 04/28/18 12:28 [From DILAUDID] BREATHING levofloxacin [From Levaquin] Allergy DIFFICULTY Verified 04/28/18 12:28 BREATHING Allergies: Allergy Unknown DIFFICULTY Uncoded 04/28/18 12:28 BREATHING Travel Screening - Travel/Exposure Within Last 30 Days Have you traveled within the last 30 days?: No Review of Systems Reviewed: No additional complaints except as noted below Constitutional: Reports: As per HPI. Denies: Chills, Fever, Malaise, Night sweats, Weakness, Weight change Eyes: Reports: As per HPI. Denies: Eye discharge, Eye pain, Photophobia, Vision change ENT: Reports: As per HPI, Congestion. Denies: Dental pain, Ear pain, Epistaxis , Hearing loss, Throat pain Respiratory: Reports: As per HPI, Cough, Dyspnea, Wheezes. Denies: Hemoptysis, Stridor Cardiovascular: Reports: As per HPI. Denies: Arrhythmia, Chest pain, Dyspnea on exertion, Edema, Murmurs, Orthopnea, Palpitations, Paroxysmal nocturnal dyspnea, Rheumatic Fever, Syncope Endocrine: Reports: As per HPI. Denies: Fatigue, Heat or cold intolerance, Polydipsia, Polyuria Gastrointestinal: Reports: As per HPI. Denies: Abdominal pain, Constipation, Diarrhea, Hematemesis, Hematochezia, Melena, Nausea, Vomiting Genitourinary: Reports: As per HPI. Denies: Abnormal menses, Discharge, Dyspareunia, Dysuria, Frequency, Hematuria, Incontinence, Retention, Urgency Musculoskeletal: Reports: As per HPI. Denies: Arthralgia, Back pain, Gout, Joint swelling, Myalgia, Neck pain Skin: Reports: As per HPI. Denies: Bruising, Change in color, Change in hair/ nails, Lesions, Pruritus, Rash Neurological: Reports: As per HPI. Denies: Abnormal gait, Confusion, Headache, Numbness, Paresthesias, Seizure, Tingling, Tremors, Vertigo, Weakness Psychiatric: Reports: As per HPI. Denies: Anxiety, Auditory hallucinations, Depression, Homicidal thoughts, Suicidal thoughts, Visual hallucinations Hematological/Lymphatic: Reports: As per HPI. Denies: Anemia, Blood Clots, Easy bleeding, Easy bruising, Swollen glands Past Medical History - SOCIAL HISTORY Smoking Status: Former smoker - RESPIRATORY Hx Respiratory Disorders: Yes Hx Asthma: Yes Hx Bronchitis: Yes Hx COPD: Yes Hx Pneumonia: Yes - CARDIOVASCULAR Hx Cardio Disorders: Yes Hx Irregular Heartbeat: Yes (A-fib) - NEURO Hx Neuro Disorders: Yes - GI Hx GI Disorders: No Comment:: colon CA-removed 12 inches and did oral chemo - Hx Genitourinary Disorders: No - ENDOCRINE Hx Endocrine Disorders: Yes Hx Thyroid Disease: Yes - MUSCULOSKELETAL Hx Musculoskeletal Disorders: No Comment:: prev fx rt hip 1985 - PSYCH Hx Psych Problems: No - HEMATOLOGY/ONCOLOGY Hx Hematology/Oncology Disorders: Yes Hx Cancer: Yes (colon) Family Medical History Any Significant Family History?: Yes Hx Heart Disease: Father, Mother, Brother/Sister Hx HTN: Mother Physical Exam - General General Appearance: Alert, Oriented x3, Cooperative, Mild distress - Head Head exam: Normal inspection - Eye Eye exam: Normal appearance, PERRL, EOMI Pupils: Normal accommodation - ENT ENT exam: Normal exam, Mucous membranes moist, Normal external ear exam, Normal orophraynx Ear exam: Normal external inspection. negative: External canal tenderness Nasal Exam: Normal inspection. negative: Discharge, Sinus tenderness Mouth exam: Normal external inspection, Tongue normal Teeth exam: Normal inspection. negative: Dental caries Throat exam: Normal inspection. negative: Tonsillar erythema, Tonsillar exudate - Neck Neck exam: Normal inspection, Full ROM. negative: Tenderness - Respiratory Respiratory exam: Decreased breath sounds, Rales, Wheezes - Cardiovascular Cardiovascular Exam: Regular rate, Normal rhythm, Normal heart sounds - GI/Abdominal GI/Abdominal exam: Soft, Normal bowel sounds. negative: Tenderness - Rectal Rectal exam: Deferred - exam: Deferred - Extremities Extremities exam: Normal inspection, Full ROM, Normal capillary refill. negative: Tenderness - Back Back exam: Reports: Normal inspection, Full ROM. Denies: Muscle spasm, Rash noted, Tenderness - Neurological Neurological exam: Alert, CN II-XII intact, Normal gait, Oriented X3 - Psychiatric Psychiatric exam: Normal affect, Normal mood - Skin Skin exam: Dry, Intact, Normal color, Warm Course Vital Signs 08/26/18 08/26/18 10:53 11:11 Temperature 97.7 F Pulse Rate 84 63 Respiratory 22 22 Rate Blood Pressure 133/66 Pulse Ox 96 99 - Reevaluation(s) Reevaluation #1: 08/26/18 12:50 pt feels better Medical Decision Making - Lab Data Result diagrams: 08/26/18 11:10 08/26/18 11:10 Lab Results 08/26/18 08/26/18 08/26/18 Range/Units 11:10 11:10 11:10 WBC 7.5 (4.2-12.2) K/uL RBC 5.12 (3.80-5.40) M/uL Hgb 13.8 (11.6-16.0) gm/dl Hct 42.1 (35.0-47.0) % MCV 82.2 (81-97) fl MCH 27.0 (27-33) pg MCHC 32.8 (32-36) g/dl RDW 15.1 H (11.5-14.5) % Plt Count 284 (130-400) K/uL MPV 8.9 (7.4-10.4) fl Gran % 57.5 (47-80) % Lymphocytes % 21.5 (16-45) % Monocytes % 9.4 H (0-9) % Eosinophils % 11.3 H (0-6) % Basophils % 0.3 (0-6) % Sodium 135 L (136-145) mmol/L Potassium 4.2 (3.4-4.5) mmol/L Chloride 99 (98-107) mmol/L Carbon Dioxide 25.0 (22-29) mmol/L Anion Gap 11.0 (7-16) BUN 16 (8-23) mg/dL Creatinine 0.5 (0.5-0.9) mg/dL Estimated GFR > 60 mL/min Random Glucose 113 H (74-109) mg/dL Calcium 9.1 (8.8-10.2) mg/dL NT-Pro-B Natriuret Pep (<450) pg/mL Influenza Type A Ag Negative (NEGATIVE) Influenza Type B Ag Negative (NEGATIVE) 08/26/18 Range/Units 11:10 WBC (4.2-12.2) K/uL RBC (3.80-5.40) M/uL Hgb (11.6-16.0) gm/dl Hct (35.0-47.0) % MCV (81-97) fl MCH (27-33) pg MCHC (32-36) g/dl RDW (11.5-14.5) % Plt Count (130-400) K/uL MPV (7.4-10.4) fl Gran % (47-80) % Lymphocytes % (16-45) % Monocytes % (0-9) % Eosinophils % (0-6) % Basophils % (0-6) % Sodium (136-145) mmol/L Potassium (3.4-4.5) mmol/L Chloride (98-107) mmol/L Carbon Dioxide (22-29) mmol/L Anion Gap (7-16) BUN (8-23) mg/dL Creatinine (0.5-0.9) mg/dL Estimated GFR mL/min Random Glucose (74-109) mg/dL Calcium (8.8-10.2) mg/dL NT-Pro-B Natriuret Pep 139.20 (<450) pg/mL Influenza Type A Ag (NEGATIVE) Influenza Type B Ag (NEGATIVE) Disposition Disposition: Discharge Clinical Impression: Bronchitis Disposition: Home, Self-Care Condition: (1) Good Instructions: COPD (Chronic Obstructive Pulmonary Disease) (ED), Acute Bronchitis (ED) Additional Instructions: follow up with family doctor tomorrow. return sooner if worse Prescriptions: Prednisone [Prednisone 20Mg] 20 mg PO Q12HR #7 tab Albuterol Sulfate 0.083% [Neb] [Albuterol Sulfate] 3 ml NEB .EVERY 4-6 HOURS PRN #20 ml PRN Reason: Difficulty In Breathing Doxycycline Hyclate 100 mg PO BID #14 cap Quality - Quality Measures Quality Measures: N/A - Blood Pressure Screening Does Patient Have Any of the Following: Active Dx of HTN Blood Pressure Classification: Pre-Hypertensive BP Reading Systolic Measurement: 133 Diastolic Measurement: 66 Screening for High Blood Pressure: Patient Exclusion, Hx of HTN [G9744]
--- NOTE | 2018-08-28 08:49 | RADIOLOGY REPORT ---
EXAM: CHEST, TWO VIEWS HISTORY: DIFFICULTY BREATHING FOR THE PAST THREE DAYS WITH COUGH. TECHNIQUE: PA and lateral upright views of the chest were obtained. Comparison: 04/28/18. FINDINGS: A loop recorder device projects over the left anterior chest. The heart is normal in size. There is calcification of the aorta. The mediastinum and pulmonary vasculature are normal. The lungs are hyperinflated consistent with COPD. Chronic interstitial changes are present within both lungs. There is a stable area of parenchymal scarring within the right lower lung. There are no visible acute infiltrates or effusions. There is no pneumothorax. There is mild chronic compression within the mid and lower thoracic vertebral bodies. No acute osseous abnormalities are identified. IMPRESSION: 1. STABLE COPD AND PARENCHYMAL SCARRING. 2. NO ACUTE CHEST PATHOLOGY. [facility]: [id number] [facility]
== END 2018-08-26 13:09 | disposition home or self-care (01) ==
LOC: ER 10:48
DX: J20.9 Acute bronchitis, unspecified (principal); R06.02 Shortness of breath; J44.9 Chronic obstructive pulmonary disease, unspecified; I48.91 Unspecified atrial fibrillation; I10 Essential (primary) hypertension; Z87.891 Personal history of nicotine dependence
CPT/HCPCS: 71046; 80048; 83880; 85025; 87400; 94640; 96374; 99284; J2930

== ENCOUNTER 2018-10-28 15:26 | Emergency (ER) | payer MEDICARE, BC ==
[2018-10-28] MEDS ORDERED: IPRATROPIUM/ALBUTEROL (0.5MG/3MG) NEB INH ONE (16:02)
[2018-10-28] MEDS ORDERED: METHYLPREDNISOLONE PF 125MG/VIAL IVP ONE (16:02)
[2018-10-28 16:19] LABS: ABSOLUTE NEUTROPHIL COUNT 3.69; BASO % 0.4 % (0-6); EOS % 9.7 % (0-6); GRAN % 54.6 % (47-80); HEMATOCRIT 39.8 % (35.0-47.0); LYMPH % 26.5 % (16-45); MEAN CELL VOLUME 83.4 fl (81-97); MEAN CORPUSCULAR HEMOGLOBIN 27.3 pg (27-33); MEAN CORPUSCULAR HGB CONC 32.7 g/dl (32-36); MEAN PLATELET VOLUME 9.2 fl (7.4-10.4); MONO % 8.8 % (0-9); PLATELET COUNT 299 K/uL (130-400); RED BLOOD COUNT 4.77 M/uL (3.80-5.40); RED CELL DISTRIBUTION WIDTH 13.5 % (11.5-14.5); WHITE BLOOD COUNT W/O DIFF 6.8 K/uL (4.2-12.2)
[2018-10-28 16:36] LABS: BLOOD UREA NITROGEN 18 mg/dL (8-23)
[2018-10-28 16:37] LABS: CREATININE 0.5 mg/dL (0.5-0.9); EST GLOMERULAR FILTRATION RATE > 60 mL/min
[2018-10-28 16:39] LABS: GLUCOSE,RANDOM 96 mg/dL (74-109)
--- NOTE | 2018-10-28 18:29 | Emergency Department Record ---
History of Present Illness - General Chief Complaint: Cough Stated Complaint: COUGH,LIGHT HEADED Time Seen by Provider: 10/28/18 15:53 Source: Patient Mode of Arrival: Ambulatory Limitations: No limitations - History of Present Illness Initial Comments: pt has been increasingly sob, sore throat the last day. she has been hoarse. she has been lightheaded MD Complaint: Cough, Shortness of breath Onset/Timin Severity: Moderate Severity scale (1-10): 1 Consistency: Intermittent Worsens With: Exertion Known History Of: COPD, Recurrent pneumonia Context: Recent URI Associated Symptoms: Cough, Sputum production - Related Data Previous Rx's Medication Instructions Recorded Fluticasone Propionate [Flovent 2 puff IH BID #0 puff 07/13/17 Hfa] Aspirin Enteric-Coated [Ecotrin 81 mg PO DAILY #30 tabec 03/01/18 (EC)] Metoprolol Succinate [Toprol Xl] 25 mg PO DAILY tab.er.24h 03/01/18 Albuterol Sulfate 0.083% [Neb] 3 ml NEB .EVERY 4-6 HOURS PRN #20 08/26/18 [Albuterol Sulfate] ml Amoxicillin/Potassium Clav 1 each PO BID #18 tablet 10/28/18 [Augmentin 875Mg/125Mg] Prednisone [Prednisone 20Mg] 20 mg PO Q12HR #8 tab 10/28/18 Allergies Allergy/AdvReac Type Severity Reaction Status Date / Time azithromycin Allergy Unknown DIFFICULTY Verified 10/28/18 15:41 BREATHING cefuroxime axetil Allergy Unknown DIFFICULTY Verified 10/28/18 15:41 BREATHING clarithromycin Allergy Unknown DIFFICULTY Verified 10/28/18 15:41 BREATHING codeine Allergy Unknown BLISTERS Verified 10/28/18 15:41 erythromycin base Allergy Unknown DIFFICULTY Verified 10/28/18 15:41 BREATHING hydromorphone HCl Allergy Unknown DIFFICULTY Verified 10/28/18 15:41 [From DILAUDID] BREATHING levofloxacin [From Levaquin] Allergy DIFFICULTY Verified 10/28/18 15:41 BREATHING Travel Screening - Travel/Exposure Within Last 30 Days Have you traveled within the last 30 days?: No - Travel/Exposure Within Last Year Have you traveled outside the [place] in the last year?: No - Additonal Travel Details Have you been exposed to anyone with a communicable illness?: No - Travel Symptoms Symptom Screening: None Review of Systems Reviewed: No additional complaints except as noted below Constitutional: Reports: As per HPI. Denies: Chills, Fever, Malaise, Night sweats, Weakness, Weight change Eyes: Reports: As per HPI. Denies: Eye discharge, Eye pain, Photophobia, Vision change ENT: Reports: As per HPI. Denies: Congestion, Dental pain, Ear pain, Epistaxis, Hearing loss, Throat pain Respiratory: Reports: As per HPI. Denies: Cough, Dyspnea, Hemoptysis, Stridor, Wheezes Cardiovascular: Reports: As per HPI. Denies: Arrhythmia, Chest pain, Dyspnea on exertion, Edema, Murmurs, Orthopnea, Palpitations, Paroxysmal nocturnal dyspnea, Rheumatic Fever, Syncope Endocrine: Reports: As per HPI. Denies: Fatigue, Heat or cold intolerance, Polydipsia, Polyuria Gastrointestinal: Reports: As per HPI. Denies: Abdominal pain, Constipation, Diarrhea, Hematemesis, Hematochezia, Melena, Nausea, Vomiting Genitourinary: Reports: As per HPI. Denies: Abnormal menses, Discharge, Dyspareunia, Dysuria, Frequency, Hematuria, Incontinence, Retention, Urgency Musculoskeletal: Reports: As per HPI. Denies: Arthralgia, Back pain, Gout, Joint swelling, Myalgia, Neck pain Skin: Reports: As per HPI. Denies: Bruising, Change in color, Change in hair/nails, Lesions, Pruritus, Rash Neurological: Reports: As per HPI. Denies: Abnormal gait, Confusion, Headache, Numbness, Paresthesias, Seizure, Tingling, Tremors, Vertigo, Weakness Psychiatric: Reports: As per HPI. Denies: Anxiety, Auditory hallucinations, Depression, Homicidal thoughts, Suicidal thoughts, Visual hallucinations Hematological/Lymphatic: Reports: As per HPI. Denies: Anemia, Blood Clots, Easy bleeding, Easy bruising, Swollen glands Past Medical History - SOCIAL HISTORY Smoking Status: Former smoker Alcohol Use: None Drug Use: None - RESPIRATORY Hx Respiratory Disorders: Yes Hx Asthma: Yes Hx Bronchitis: Yes Hx COPD: Yes Hx Pneumonia: Yes - CARDIOVASCULAR Hx Cardio Disorders: Yes Hx Irregular Heartbeat: Yes (A-fib) - NEURO Hx Neuro Disorders: Yes - GI Hx GI Disorders: No Comment:: colon CA-removed 12 inches and did oral chemo - Hx Genitourinary Disorders: No - ENDOCRINE Hx Endocrine Disorders: Yes Hx Thyroid Disease: Yes - MUSCULOSKELETAL Hx Musculoskeletal Disorders: No Comment:: prev fx rt hip 1985 - PSYCH Hx Psych Problems: No - HEMATOLOGY/ONCOLOGY Hx Hematology/Oncology Disorders: Yes Hx Cancer: Yes (colon) Family Medical History Any Significant Family History?: Yes Hx Heart Disease: Father, Mother, Brother/Sister Hx HTN: Mother Physical Exam - General General Appearance: Alert, Oriented x3, Cooperative, Mild distress - Head Head exam: Normal inspection - Eye Eye exam: Normal appearance, PERRL, EOMI Pupils: Normal accommodation - ENT ENT exam: Normal exam, Mucous membranes moist, Normal external ear exam, Normal orophraynx Ear exam: Normal external inspection. negative: External canal tenderness Nasal Exam: Normal inspection. negative: Discharge, Sinus tenderness Mouth exam: Normal external inspection, Tongue normal Teeth exam: Normal inspection. negative: Dental caries Throat exam: Normal inspection. negative: Tonsillar erythema, Tonsillar exudate - Neck Neck exam: Normal inspection, Full ROM. negative: Tenderness - Respiratory Respiratory exam: Rales, Respiratory distress, Wheezes - Cardiovascular Cardiovascular Exam: Normal rhythm, Normal heart sounds, Bradycardia - GI/Abdominal GI/Abdominal exam: Soft, Normal bowel sounds. negative: Tenderness - Rectal Rectal exam: Deferred - exam: Deferred - Extremities Extremities exam: Normal inspection, Full ROM, Normal capillary refill. negative: Tenderness - Back Back exam: Reports: Normal inspection, Full ROM. Denies: Muscle spasm, Rash noted, Tenderness - Neurological Neurological exam: Alert, CN II-XII intact, Normal gait, Oriented X3 - Psychiatric Psychiatric exam: Normal affect, Normal mood - Skin Skin exam: Dry, Intact, Normal color, Warm Course Vital Signs 10/28/18 10/28/18 15:35 17:12 Temperature 97.6 F Pulse Rate 51 L 54 L Respiratory 20 18 Rate Blood Pressure 151/83 Pulse Ox 98 96 - Reevaluation(s) Reevaluation #1: 10/28/18 18:28 pt feels better 10/28/18 18:30 cxr has bilat infiltrates Medical Decision Making - Lab Data Result diagrams: 10/28/18 15:40 10/28/18 15:40 Lab Results 10/28/18 10/28/18 Range/Units 15:40 15:40 WBC 6.8 (4.2-12.2) K/uL RBC 4.77 (3.80-5.40) M/uL Hgb 13.0 (11.6-16.0) gm/dl Hct 39.8 (35.0-47.0) % MCV 83.4 (81-97) fl MCH 27.3 (27-33) pg MCHC 32.7 (32-36) g/dl RDW 13.5 (11.5-14.5) % Plt Count 299 (130-400) K/uL MPV 9.2 (7.4-10.4) fl Gran % 54.6 (47-80) % Lymphocytes % 26.5 (16-45) % Monocytes % 8.8 (0-9) % Eosinophils % 9.7 H (0-6) % Basophils % 0.4 (0-6) % Absolute Neutrophils 3.69 Sodium 133 L (136-145) mmol/L Potassium 4.1 (3.4-4.5) mmol/L Chloride 97 L (98-107) mmol/L Carbon Dioxide 26.0 (22-29) mmol/L Anion Gap 10.0 (7-16) BUN 18 (8-23) mg/dL Creatinine 0.5 (0.5-0.9) mg/dL Estimated GFR > 60 mL/min Random Glucose 96 (74-109) mg/dL Calcium 9.3 (8.8-10.2) mg/dL NT-Pro-B Natriuret Pep 130.70 (<450) pg/mL Disposition Disposition: Discharge Clinical Impression: COPD exacerbation Pneumonia Qualifiers: Pneumonia type: due to unspecified organism Laterality: bilateral Lung location: unspecified part of lung Qualified Code(s): J18.9 - Pneumonia, unspecified organism Disposition: Home, Self-Care Condition: (1) Good Instructions: Bacterial Pneumonia (ED), COPD (Chronic Obstructive Pulmonary Disease) (ED) Additional Instructions: follow up with dr ventura this week. return sooner if worse. Prescriptions: Prednisone [Prednisone 20Mg] 20 mg PO Q12HR #8 tab Amoxicillin/Potassium Clav [Augmentin 875Mg/125Mg] 1 each PO BID #18 tablet Quality - Quality Measures Quality Measures: N/A - Blood Pressure Screening Does Patient Have Any of the Following: No Blood Pressure Classification: Pre-Hypertensive BP Reading Systolic Measurement: 151 Diastolic Measurement: 83 Screening for High Blood Pressure: < Pre-Hypertensive BP, F/U Documented > [G8950] Pre-Hypertensive Follow-up Interventions: Follow-up with rescreen every year.
[2018-10-28] MEDS: AMOXICILLIN/POTASSIUM CLAV 875MG/125MG TABLET PO ONE (19:01)
--- NOTE | 2018-10-29 21:21 | RADIOLOGY REPORT ---
EXAM: CHEST 2 VIEWS HISTORY: SHORTNESS OF BREATH. TECHNIQUE: PA and lateral views. COMPARISON: Two-view chest 08/26/2018. FINDINGS: Heart size is normal. The lungs again appear hyperinflated suggesting underlying COPD. There is progressive bilateral interstitial infiltrate fairly diffusely compared to the prior study. Presumable implanted loop recorder device overlying the left mid chest wall anteriorly as before. Thoracolumbar levoscoliosis again evident. IMPRESSION: 1. HYPERINFLATION BEFORE CONSISTENT WITH UNDERLYING COPD. 2. PROGRESSIVE BILATERAL INTERSTITIAL INFILTRATE COMPARED TO THE PRIOR STUDY, PRESUMABLY REPRESENTING SOME ACUTE INTERSTITIAL INFILTRATE SUPERIMPOSED ON THE PREVIOUSLY DESCRIBED BACKGROUND OF CHRONIC INTERSTITIAL CHANGES NOTED PREVIOUSLY. 3. IMPLANTABLE LOOP RECORDER DEVICE AGAIN NOTED. 4. THORACOLUMBAR LEVOSCOLIOSIS AGAIN EVIDENT. 5. FOLLOW-UP FILMS SUGGESTED TO DEMONSTRATE CLEARING OF THE CURRENTLY SEEN NEW INFILTRATE. JOB NUMBER: [id number] MTDD
== END 2018-10-28 19:03 | disposition home or self-care (01) ==
LOC: ER 15:26
DX: J44.1 Chronic obstructive pulmonary disease with (acute) exacerbation (principal); J18.9 Pneumonia, unspecified organism; R06.02 Shortness of breath; R42 Dizziness and giddiness; Z87.891 Personal history of nicotine dependence
CPT/HCPCS: 71046; 80048; 83880; 85025; 94640; 96374; 99284; J2930

== ENCOUNTER 2018-10-31 11:58 | Emergency (ER) | payer MEDICARE, BC ==
--- NOTE | 2018-10-31 16:30 | Emergency Department Record ---
History of Present Illness - General Chief Complaint: Cough Stated Complaint: PNEUMONIA NOT BETTER Time Seen by Provider: 10/31/18 12:58 Source: Patient, RN notes reviewed Mode of Arrival: Ambulatory - History of Present Illness Initial Comments: patient states weak and her cough is getting better and she has an appointment to see me tomorrow afternoon and seen here 3 days ago and on prednisone 20 mg bid and antibiotics MD Complaint: Cough, Sore throat Onset/Timin -: Days(s) - Related Data Previous Rx's Medication Instructions Recorded Fluticasone Propionate [Flovent 2 puff IH BID #0 puff 07/13/17 Hfa] Aspirin Enteric-Coated [Ecotrin 81 mg PO DAILY #30 tabec 03/01/18 (EC)] Metoprolol Succinate [Toprol Xl] 25 mg PO DAILY tab.er.24h 03/01/18 Albuterol Sulfate 0.083% [Neb] 3 ml NEB .EVERY 4-6 HOURS PRN #20 08/26/18 [Albuterol Sulfate] ml Amoxicillin/Potassium Clav 1 each PO BID #18 tablet 10/28/18 [Augmentin 875Mg/125Mg] Prednisone [Prednisone 20Mg] 20 mg PO Q12HR #8 tab 10/28/18 Allergies Allergy/AdvReac Type Severity Reaction Status Date / Time azithromycin Allergy Unknown DIFFICULTY Verified 10/31/18 14:04 BREATHING cefuroxime axetil Allergy Unknown DIFFICULTY Verified 10/31/18 14:04 BREATHING clarithromycin Allergy Unknown DIFFICULTY Verified 10/31/18 14:04 BREATHING codeine Allergy Unknown BLISTERS Verified 10/31/18 14:04 erythromycin base Allergy Unknown DIFFICULTY Verified 10/31/18 14:04 BREATHING hydromorphone HCl Allergy Unknown DIFFICULTY Verified 10/31/18 14:04 [From DILAUDID] BREATHING levofloxacin [From Levaquin] Allergy DIFFICULTY Verified 10/31/18 14:04 BREATHING Travel Screening - Travel/Exposure Within Last 30 Days Have you traveled within the last 30 days?: No - Travel/Exposure Within Last Year Have you traveled outside the [place] in the last year?: No - Additonal Travel Details Have you been exposed to anyone with a communicable illness?: No - Travel Symptoms Symptom Screening: None Review of Systems Reviewed: No additional complaints except as noted below Constitutional: Reports: As per HPI. Denies: Chills, Fever, Malaise, Night sweats, Weakness, Weight change Eyes: Reports: As per HPI. Denies: Eye discharge, Eye pain, Photophobia, Vision change ENT: Reports: As per HPI. Denies: Congestion, Dental pain, Ear pain, Epistaxis, Hearing loss, Throat pain Respiratory: Reports: As per HPI. Denies: Cough, Dyspnea, Hemoptysis, Stridor, Wheezes Cardiovascular: Reports: As per HPI. Denies: Arrhythmia, Chest pain, Dyspnea on exertion, Edema, Murmurs, Orthopnea, Palpitations, Paroxysmal nocturnal dyspnea, Rheumatic Fever, Syncope Endocrine: Reports: As per HPI. Denies: Fatigue, Heat or cold intolerance, Polydipsia, Polyuria Gastrointestinal: Reports: As per HPI. Denies: Abdominal pain, Constipation, Diarrhea, Hematemesis, Hematochezia, Melena, Nausea, Vomiting Genitourinary: Reports: As per HPI. Denies: Abnormal menses, Discharge, Dyspareunia, Dysuria, Frequency, Hematuria, Incontinence, Retention, Urgency Musculoskeletal: Reports: As per HPI. Denies: Arthralgia, Back pain, Gout, Joint swelling, Myalgia, Neck pain Skin: Reports: As per HPI. Denies: Bruising, Change in color, Change in hair/nails, Lesions, Pruritus, Rash Neurological: Reports: As per HPI. Denies: Abnormal gait, Confusion, Headache, Numbness, Paresthesias, Seizure, Tingling, Tremors, Vertigo, Weakness Psychiatric: Reports: As per HPI. Denies: Anxiety, Auditory hallucinations, Depression, Homicidal thoughts, Suicidal thoughts, Visual hallucinations Hematological/Lymphatic: Reports: As per HPI. Denies: Anemia, Blood Clots, Easy bleeding, Easy bruising, Swollen glands Past Medical History - SOCIAL HISTORY Smoking Status: Former smoker Alcohol Use: None Drug Use: None - RESPIRATORY Hx Respiratory Disorders: Yes Hx Asthma: Yes Hx Bronchitis: Yes Hx COPD: Yes Hx Pneumonia: Yes - CARDIOVASCULAR Hx Cardio Disorders: Yes Hx Irregular Heartbeat: Yes (A-fib) - NEURO Hx Neuro Disorders: Yes - GI Hx GI Disorders: No Comment:: colon CA-removed 12 inches and did oral chemo - Hx Genitourinary Disorders: No - ENDOCRINE Hx Endocrine Disorders: Yes Hx Thyroid Disease: Yes - MUSCULOSKELETAL Hx Musculoskeletal Disorders: No Comment:: prev fx rt hip 1985 - PSYCH Hx Psych Problems: No - HEMATOLOGY/ONCOLOGY Hx Hematology/Oncology Disorders: Yes Hx Cancer: Yes (colon) Family Medical History Any Significant Family History?: Yes Hx Heart Disease: Father, Mother, Brother/Sister Hx HTN: Mother Physical Exam - General General Appearance: Alert, Oriented x3, Cooperative, No acute distress - Head Head exam: Normal inspection - Eye Eye exam: Normal appearance, PERRL Pupils: Normal accommodation - ENT ENT exam: Normal exam, Mucous membranes moist, Normal external ear exam, Normal orophraynx, TM's normal bilaterally Ear exam: Normal external inspection. negative: External canal tenderness Nasal Exam: Normal inspection. negative: Discharge, Sinus tenderness Mouth exam: Normal external inspection, Tongue normal Teeth exam: Normal inspection. negative: Dental caries Throat exam: Normal inspection. negative: Tonsillar erythema, Tonsillar exudate - Neck Neck exam: Normal inspection, Full ROM. negative: Tenderness - Respiratory Respiratory exam: Normal lung sounds bilaterally. negative: Respiratory distress - Cardiovascular Cardiovascular Exam: Regular rate, Normal rhythm, Normal heart sounds - GI/Abdominal GI/Abdominal exam: Soft, Normal bowel sounds. negative: Tenderness - Rectal Rectal exam: Deferred - exam: Deferred - Extremities Extremities exam: Normal inspection, Full ROM, Normal capillary refill. negative: Tenderness - Back Back exam: Reports: Normal inspection, Full ROM. Denies: Muscle spasm, Rash n oted, Tenderness - Neurological Neurological exam: Alert, Normal gait, Oriented X3, Reflexes normal - Psychiatric Psychiatric exam: Normal affect, Normal mood - Skin Skin exam: Dry, Intact, Normal color, Warm Course Vital Signs 10/31/18 10/31/18 14:18 16:16 Temperature 97.7 F Pulse Rate 70 Pulse Rate [ 54 L Pulse Ox Probe] Respiratory 20 20 Rate Blood Pressure 164/74 Blood Pressure 134/72 [Left Arm] Pulse Ox 98 97 Medical Decision Making - Lab Data Result diagrams: 10/31/18 16:45 10/31/18 16:45 Disposition Clinical Impression: Pneumonia Qualifiers: Pneumonia type: due to unspecified organism Laterality: bilateral Lung location: lower lobe of lung Qualified Code(s): J18.1 - Lobar pneumonia, unspecified organism Disposition: Home, Self-Care Condition: (2) Stable Instructions: Pneumonitis (ED) Additional Instructions: follow up with Dr Crook tomorrow as scheduled continue augmentin and prednisone Forms: Patient Portal Access Time of Disposition: 18:23 Quality - Quality Measures Quality Measures: N/A - Blood Pressure Screening Does Patient Have Any of the Following: No, Active Dx of HTN Blood Pressure Classification: Hypertensive Reading Systolic Measurement: 164 Diastolic Measurement: 74 Screening for High Blood Pressure: Patient Exclusion, Hx of HTN [G9744]
[2018-10-31 16:57] LABS: ABSOLUTE NEUTROPHIL COUNT 7.23; HEMATOCRIT 41.8 % (35.0-47.0); HEMOGLOBIN 13.7 gm/dl (11.6-16.0); MEAN CELL VOLUME 82.9 fl (81-97); MEAN CORPUSCULAR HEMOGLOBIN 27.2 pg (27-33); MEAN CORPUSCULAR HGB CONC 32.8 g/dl (32-36); MEAN PLATELET VOLUME 9.1 fl (7.4-10.4); PLATELET COUNT 337 K/uL (130-400); RED BLOOD COUNT 5.04 M/uL (3.80-5.40); RED CELL DISTRIBUTION WIDTH 13.5 % (11.5-14.5); WHITE BLOOD COUNT W/O DIFF 8.6 K/uL (4.2-12.2)
[2018-10-31 17:00] LABS: BLOOD UREA NITROGEN 16 mg/dL (8-23); CREATININE 0.5 mg/dL (0.5-0.9); EST GLOMERULAR FILTRATION RATE > 60 mL/min
[2018-10-31 17:03] LABS: GLUCOSE,RANDOM 121 mg/dL (74-109)
== END 2018-10-31 18:38 | disposition home or self-care (01) ==
LOC: ER 11:58
DX: J18.1 Lobar pneumonia, unspecified organism (principal); J44.9 Chronic obstructive pulmonary disease, unspecified; I48.91 Unspecified atrial fibrillation; Z87.891 Personal history of nicotine dependence
CPT/HCPCS: 80048; 85027; 99283

== ENCOUNTER 2019-02-17 12:56 | Emergency (ER) | payer MEDICARE, BC ==
[2019-02-17] MEDS ORDERED: METHYLPREDNISOLONE PF 125MG/VIAL IM ONE (13:38)
[2019-02-17] MEDS ORDERED: IPRATROPIUM/ALBUTEROL (0.5MG/3MG) NEB INH ONE (13:38)
--- NOTE | 2019-02-17 13:38 | Emergency Department Record ---
History of Present Illness - General Chief Complaint: Cough Stated Complaint: COUGH Time Seen by Provider: 02/17/19 13:25 Source: Patient Mode of Arrival: Ambulatory Limitations: No limitations - History of Present Illness Initial Comments: pt c/o sob, productive yellow cough. MD Complaint: Cough, Nasal congestion Onset/Timin -: Week(s) Consistency: Getting worse Associated Symptoms: Cough, Nasal congestion, Shortness of breath - Related Data Home Medications Medication Instructions Recorded Confirmed Last Taken Biotin 300 mcg PO DAILY 02/17/19 02/17/19 Unknown Previous Rx's Medication Instructions Recorded Fluticasone Propionate [Flovent 2 puff IH BID #0 puff 07/13/17 Hfa] Aspirin Enteric-Coated [Ecotrin 81 mg PO DAILY #30 tabec 03/01/18 (EC)] Metoprolol Succinate [Toprol Xl] 25 mg PO DAILY tab.er.24h 03/01/18 Albuterol Sulfate 0.083% [Neb] 3 ml NEB .EVERY 4-6 HOURS PRN #20 08/26/18 [Albuterol Sulfate] ml Doxycycline Hyclate 100 mg PO BID #14 cap 02/17/19 Allergies Allergy/AdvReac Type Severity Reaction Status Date / Time azithromycin Allergy Unknown DIFFICULTY Verified 02/17/19 13:36 BREATHING cefuroxime axetil Allergy Unknown DIFFICULTY Verified 02/17/19 13:36 BREATHING clarithromycin Allergy Unknown DIFFICULTY Verified 02/17/19 13:36 BREATHING codeine Allergy Unknown BLISTERS Verified 02/17/19 13:36 erythromycin base Allergy Unknown DIFFICULTY Verified 02/17/19 13:36 BREATHING hydromorphone HCl Allergy Unknown DIFFICULTY Verified 02/17/19 13:36 [From DILAUDID] BREATHING levofloxacin [From Levaquin] Allergy DIFFICULTY Verified 02/17/19 13:36 BREATHING Travel Screening - Travel/Exposure Within Last 30 Days Have you traveled within the last 30 days?: No Review of Systems Reviewed: No additional complaints except as noted below Constitutional: Reports: As per HPI. Denies: Chills, Fever, Malaise, Night sweats, Weakness, Weight change Eyes: Reports: As per HPI. Denies: Eye discharge, Eye pain, Photophobia, Vision change ENT: Reports: As per HPI. Denies: Congestion, Dental pain, Ear pain, Epistaxis, Hearing loss, Throat pain Respiratory: Reports: As per HPI, Cough, Dyspnea. Denies: Hemoptysis, Stridor, Wheezes Cardiovascular: Reports: As per HPI. Denies: Arrhythmia, Chest pain, Dyspnea on exertion, Edema, Murmurs, Orthopnea, Palpitations, Paroxysmal nocturnal dyspnea, Rheumatic Fever, Syncope Endocrine: Reports: As per HPI. Denies: Fatigue, Heat or cold intolerance, Polydipsia, Polyuria Gastrointestinal: Reports: As per HPI. Denies: Abdominal pain, Constipation, Diarrhea, Hematemesis, Hematochezia, Melena, Nausea, Vomiting Genitourinary: Reports: As per HPI. Denies: Abnormal menses, Discharge, Dyspareunia, Dysuria, Frequency, Hematuria, Incontinence, Retention, Urgency Musculoskeletal: Reports: As per HPI. Denies: Arthralgia, Back pain, Gout, Joint swelling, Myalgia, Neck pain Skin: Reports: As per HPI. Denies: Bruising, Change in color, Change in hair/nails, Lesions, Pruritus, Rash Neurological: Reports: As per HPI. Denies: Abnormal gait, Confusion, Headache, Numbness, Paresthesias, Seizure, Tingling, Tremors, Vertigo, Weakness Psychiatric: Reports: As per HPI. Denies: Anxiety, Auditory hallucinations, Depression, Homicidal thoughts, Suicidal thoughts, Visual hallucinations Hematological/Lymphatic: Reports: As per HPI. Denies: Anemia, Blood Clots, Easy bleeding, Easy bruising, Swollen glands Past Medical History - SOCIAL HISTORY Smoking Status: Former smoker Alcohol Use: None Drug Use: None - RESPIRATORY Hx Respiratory Disorders: Yes Hx Asthma: Yes Hx Bronchitis: Yes Hx COPD: Yes Hx Pneumonia: Yes - CARDIOVASCULAR Hx Cardio Disorders: Yes Hx Irregular Heartbeat: Yes (A-fib) - NEURO Hx Neuro Disorders: Yes - GI Hx GI Disorders: No Comment:: colon CA-removed 12 inches and did oral chemo - Hx Genitourinary Disorders: No - ENDOCRINE Hx Endocrine Disorders: Yes Hx Thyroid Disease: Yes - MUSCULOSKELETAL Hx Musculoskeletal Disorders: No Comment:: prev fx rt hip 1985 - PSYCH Hx Psych Problems: No - HEMATOLOGY/ONCOLOGY Hx Hematology/Oncology Disorders: Yes Hx Cancer: Yes (colon) Family Medical History Any Significant Family History?: Yes Hx Heart Disease: Father, Mother, Brother/Sister Hx HTN: Mother Physical Exam - General General Appearance: Alert, Oriented x3, Cooperative, Mild distress - Head Head exam: Normal inspection - Eye Eye exam: Normal appearance, PERRL, EOMI Pupils: Normal accommodation - ENT ENT exam: Normal exam, Mucous membranes moist, Normal external ear exam, Normal orophraynx Ear exam: Normal external inspection. negative: External canal tenderness Nasal Exam: Normal inspection. negative: Discharge, Sinus tenderness Mouth exam: Normal external inspection, Tongue normal Teeth exam: Normal inspection. negative: Dental caries Throat exam: Normal inspection. negative: Tonsillar erythema, Tonsillar exudate - Neck Neck exam: Normal inspection, Full ROM. negative: Tenderness - Respiratory Respiratory exam: Decreased breath sounds, Respiratory distress, Wheezes - Cardiovascular Cardiovascular Exam: Regular rate, Normal rhythm, Normal heart sounds - GI/Abdominal GI/Abdominal exam: Soft, Normal bowel sounds. negative: Tenderness - Rectal Rectal exam: Deferred - exam: Deferred - Extremities Extremities exam: Normal inspection, Full ROM, Normal capillary refill. negative: Tenderness - Back Back exam: Reports: Normal inspection, Full ROM. Denies: Muscle spasm, Rash noted, Tenderness - Neurological Neurological exam: Alert, CN II-XII intact, Normal gait, Oriented X3 - Psychiatric Psychiatric exam: Normal affect, Normal mood - Skin Skin exam: Dry, Intact, Normal color, Warm Course Vital Signs 02/17/19 13:17 Temperature 97.9 F Pulse Rate 67 Respiratory 20 Rate Blood Pressure 134/74 Pulse Ox 98 Disposition Disposition: Discharge Clinical Impression: Bronchitis COPD (chronic obstructive pulmonary disease) Qualifiers: COPD type: unspecified COPD Qualified Code(s): J44.9 - Chronic obstructive pulmonary disease, unspecified Disposition: Home, Self-Care Condition: (1) Good Instructions: COPD (Chronic Obstructive Pulmonary Disease) (ED), Acute Bronchitis (ED) Additional Instructions: follow up with family doctor. return sooner if worse Prescriptions: Doxycycline Hyclate 100 mg PO BID #14 cap Forms: Patient Portal Access Quality - Quality Measures Quality Measures: N/A - Blood Pressure Screening Does Patient Have Any of the Following: Active Dx of HTN Blood Pressure Classification: Pre-Hypertensive BP Reading Systolic Measurement: 134 Diastolic Measurement: 74 Screening for High Blood Pressure: Patient Exclusion, Hx of HTN [G9744]
--- NOTE | 2019-02-19 13:12 | RADIOLOGY REPORT ---
EXAM: CHEST, TWO VIEWS HISTORY: PATIENT HAS SHORTNESS OF BREATH AND COUGH. TECHNIQUE: Two views of the chest are provided along with the comparison study dated 12/09/18. FINDINGS: The cardiomediastinal silhouette is within normal limits for size and contour. The ron appear unremarkable. Severe emphysematous changes are identified bilaterally. There is no radiographic evidence of a focal infiltrate, pleural effusion, or pneumothorax. A loupe recorder is identified within the left anterior chest. Compression deformity of the T12 vertebral body is unchanged with respect to the prior examination. IMPRESSION: SEVERE EMPHYSEMATOUS CHANGES ARE STABLE WITH RESPECT TO THE PRIOR EXAMINATION. JOB NUMBER: [id number] MTDD
== END 2019-02-17 14:53 | disposition home or self-care (01) ==
LOC: ER 12:56
DX: J20.9 Acute bronchitis, unspecified (principal); J44.0 Chronic obstructive pulmonary disease with (acute) lower respiratory infection; Z87.891 Personal history of nicotine dependence; I48.91 Unspecified atrial fibrillation
CPT/HCPCS: 71046; 94640; 99284; J2930

== ENCOUNTER 2019-04-30 17:44 | Emergency (ER) | payer MEDICARE, BC ==
[2019-04-30] MEDS ORDERED: IPRATROPIUM/ALBUTEROL (0.5MG/3MG) NEB INH ONE (17:59)
[2019-04-30] MEDS ORDERED: METHYLPREDNISOLONE PF 125MG/VIAL IVP ONE (18:04)
--- NOTE | 2019-04-30 18:04 | Emergency Department Record ---
History of Present Illness - General Chief Complaint: Shortness of breath Stated Complaint: SHORT OF BRATHE,COUGH Time Seen by Provider: 04/30/19 17:59 Source: Patient Mode of Arrival: Ambulatory Limitations: No limitations - History of Present Illness Initial Comments: 78 yo female presents to ED for evaluation of difficulty in breathing and non-productive cough symptoms for the past 1 week. Patient denies fevers, chills, nausea, vomiting, or chest comfort symptoms. Patient reports a history of COPD and frequent episodes of bronchitis and pneumonia. Patient denies lower extremity edema, history of DVT/PE, or calf pain symptoms. MD Complaint: Shortness of breath Onset/Timin -: Week(s) Severity: Moderate Consistency: Constant Improves With: Rest Worsens With: Exertion Known History Of: COPD, Recurrent pneumonia Associated Symptoms: Cough Treatments Prior to Arrival: None - Related Data Home Oxygen Therapy: No Previous Rx's Medication Instructions Recorded Fluticasone Propionate [Flovent 2 puff IH BID #0 puff 07/13/17 Hfa] Aspirin Enteric-Coated [Ecotrin 81 mg PO DAILY #30 tabec 03/01/18 (EC)] Metoprolol Succinate [Toprol Xl] 25 mg PO DAILY tab.er.24h 03/01/18 Albuterol Sulfate 0.083% [Neb] 3 ml NEB .EVERY 4-6 HOURS PRN #20 08/26/18 [Albuterol Sulfate] ml Amoxicillin [Amoxil] 875 mg PO BID #20 tab 04/30/19 Prednisone [Prednisone 20Mg] 20 mg PO TID #12 tab 04/30/19 Allergies Allergy/AdvReac Type Severity Reaction Status Date / Time azithromycin Allergy Unknown DIFFICULTY Verified 04/30/19 17:50 BREATHING cefuroxime axetil Allergy Unknown DIFFICULTY Verified 04/30/19 17:50 BREATHING clarithromycin Allergy Unknown DIFFICULTY Verified 04/30/19 17:50 BREATHING codeine Allergy Unknown BLISTERS Verified 04/30/19 17:50 erythromycin base Allergy Unknown DIFFICULTY Verified 04/30/19 17:50 BREATHING hydromorphone HCl Allergy Unknown DIFFICULTY Verified 04/30/19 17:50 [From DILAUDID] BREATHING doxycycline Allergy dizziness Verified 04/30/19 17:50 levofloxacin [From Levaquin] Allergy DIFFICULTY Verified 04/30/19 17:50 BREATHING Review of Systems Constitutional: Denies: Chills, Fever, Malaise, Night sweats Eyes: Denies: Eye discharge, Eye pain ENT: Denies: Congestion, Ear pain, Epistaxis Respiratory: Reports: Cough, Dyspnea. Denies: Wheezes Cardiovascular: Reports: Dyspnea on exertion. Denies: Chest pain, Edema Endocrine: Denies: Fatigue, Heat or cold intolerance Gastrointestinal: Denies: Abdominal pain, Nausea, Vomiting Genitourinary: Denies: Incontinence, Retention Musculoskeletal: Denies: Arthralgia, Back pain Skin: Denies: Bruising, Change in color Neurological: Denies: Abnormal gait, Confusion, Headache, Tingling, Tremors Psychiatric: Denies: Anxiety Hematological/Lymphatic: Denies: Anemia, Blood Clots Past Medical History - SOCIAL HISTORY Smoking Status: Former smoker Drug Use: None - RESPIRATORY Hx Respiratory Disorders: Yes Hx Asthma: Yes Hx Bronchitis: Yes Hx COPD: Yes Hx Pneumonia: Yes - CARDIOVASCULAR Hx Cardio Disorders: Yes Hx Irregular Heartbeat: Yes (A-fib) - NEURO Hx Neuro Disorders: Yes - GI Hx GI Disorders: No Comment:: colon CA-removed 12 inches and did oral chemo - Hx Genitourinary Disorders: No - ENDOCRINE Hx Endocrine Disorders: Yes Hx Thyroid Disease: Yes - MUSCULOSKELETAL Hx Musculoskeletal Disorders: No Comment:: prev fx rt hip 1985 - PSYCH Hx Psych Problems: No - HEMATOLOGY/ONCOLOGY Hx Hematology/Oncology Disorders: Yes Hx Cancer: Yes (colon) Family Medical History Hx Heart Disease: Father, Mother, Brother/Sister Hx HTN: Mother Physical Exam - General General Appearance: Alert, Oriented x3, Cooperative, Mild distress Limitations: No limitations - Head Head exam: Atraumatic, Normocephalic, Normal inspection Head exam detail: negative: Abrasion, Contusion, Back's sign, General tenderness, Hematoma, Laceration - Eye Eye exam: Normal appearance. negative: Conjunctival injection, Periorbital swelling, Periorbital tenderness, Scleral icterus - ENT Ear exam: negative: Auricular hematoma, Auricular trauma Nasal Exam: negative: Active bleeding, Discharge, Dried blood, Foreign body Mouth exam: negative: Drooling, Laceration, Muffled voice, Tongue elevation - Neck Neck exam: Normal inspection. negative: Meningismus, Tenderness - Respiratory Respiratory exam: Decreased breath sounds. negative: Respiratory distress, Rhonchi, Stridor, Wheezes - Cardiovascular Cardiovascular Exam: Regular rate, Normal rhythm, Normal heart sounds - GI/Abdominal GI/Abdominal exam: Soft. negative: Distended, Rebound, Rigid, Tenderness - Rectal Rectal exam: Deferred - exam: Deferred - Extremities Extremities exam: Normal inspection. negative: Pedal edema, Tenderness - Back Back exam: Denies: CVA tenderness (R), CVA tenderness (L) - Neurological Neurological exam: Alert, Normal gait, Oriented X3 - Psychiatric Psychiatric exam: Normal affect, Normal mood - Skin Skin exam: Normal color. negative: Abrasion Type of lesion: negative: abrasion Course - Reevaluation(s) Reevaluation #1: 04/30/19 18:14 EKG: NSR 64 LAD, normal intervals No acute ST-T wave changes are present Reevaluation #2: 04/30/19 18:49 Laboratory studies were reviewed and appear grossly unremarkable for an acute process. Reevaluation #3: 04/30/19 19:38 CXR: 2 cm opacity right lower lobe Emphysema Patient was reassessed, updated on all results. Will perform ambulating biox and reassess. Reevaluation #4: 04/30/19 20:10 Patient ambulated with steady gait, Oxygenation 94-95% with pulse in the 80's, no respiratory distress noted on examination. Patient reports that she is unable to tolerate the following antibiotics: Erythromycin Doxycycline Levaquin Zithromax Ceftin Due to the patient's multitude of allergies, will be unable to cover for atypical bugs Patient and her daughter were updated on CXR results demonstrating 2.0 cm lesion and the need for repeat imaging in 2-4 weeks to ensure resolution if pneumonia is the cause, patient and her daughter verbalize understanding of these instructions. Message was also given to the patient's PCP (Dr. Crook) for repeat radiographs in 2-4 weeks. Medical Decision Making - Lab Data Result diagrams: 04/30/19 18:05 04/30/19 18:05 Disposition Disposition: Discharge Clinical Impression: COPD exacerbation Pneumonia Qualifiers: Pneumonia type: due to unspecified organism Laterality: right Lung location: lower lobe of lung Qualified Code(s): J18.9 - Pneumonia, unspecified organism Disposition: Home, Self-Care Condition: (2) Stable Instructions: COPD (Chronic Obstructive Pulmonary Disease) (ED) Additional Instructions: Return to ED if your symptoms worsen or if you have any concerns. Prednisone/Amoxicillin as directed. Zofran as needed. Follow-up with your family doctor in 3-5 days as directed. Repeat CXR in 2-4 weeks to ensure resolution of right lower lobe lung lesion seen in radiographs in ED. Prescriptions: Amoxicillin [Amoxil] 875 mg PO BID #20 tab Prednisone [Prednisone 20Mg] 20 mg PO TID #12 tab Forms: Patient Portal Access Time of Disposition: 19:58 Quality - Quality Measures Quality Measures: N/A - Blood Pressure Screening Does Patient Have Any of the Following: No Blood Pressure Classification: Pre-Hypertensive BP Reading Systolic Measurement: 122 Diastolic Measurement: 89 Screening for High Blood Pressure: < Pre-Hypertensive BP, F/U Documented > [G8950] Pre-Hypertensive Follow-up Interventions: Referral to alternative/primary care provider.
[2019-04-30 18:20] LABS: HEMOGLOBIN 12.6 gm/dl (11.6-16.0); MEAN CELL VOLUME 82.8 fl (81-97); MEAN CORPUSCULAR HEMOGLOBIN 26.8 pg (27-33); MEAN CORPUSCULAR HGB CONC 32.3 g/dl (32-36); MEAN PLATELET VOLUME 8.7 fl (7.4-10.4); PLATELET COUNT 219 K/uL (130-400); RED BLOOD COUNT 4.71 M/uL (3.80-5.40); RED CELL DISTRIBUTION WIDTH 14.6 % (11.5-14.5); WHITE BLOOD COUNT W/O DIFF 6.6 K/uL (4.2-12.2)
[2019-04-30 18:36] LABS: BLOOD UREA NITROGEN 19 mg/dL (8-23); CREATININE 0.7 mg/dL (0.5-0.9); EST GLOMERULAR FILTRATION RATE > 60 mL/min
[2019-04-30 18:37] LABS: TOTAL PROTEIN 6.7 g/dL (6.6-8.7)
[2019-04-30 18:39] LABS: GLUCOSE,RANDOM 113 mg/dL (74-109)
[2019-04-30 18:42] LABS: ALB/GLOB RATIO 1.4 (1.1-1.8); ALBUMIN 3.9 g/dL (4.0-5.0); ALKALINE PHOSPHATASE 54 U/L (35-104); ALT/SGPT 14 U/L (<33); AST/SGOT 22 U/L (10.0-35.0)
--- NOTE | 2019-04-30 19:18 | RADIOLOGY REPORT ---
EXAMINATION: Two View Chest Radiographs EXAM DATE: 04/30/2019 6:44 PM TECHNIQUE: Frontal and lateral views INDICATION: VALENTE COMPARISON: 02/17/2019 ENCOUNTER: Not applicable FINDINGS: Pulmonary emphysema. Cardiomediastinal structures stable. New 2 cm rounded opacity superior segment r ight lower lobe. Follow-up CT of the thorax as clinically directed. Loop recorder on the left. IMPRESSION: 1. Pulmonary emphysema 2. New 2 cm rounded opacity right lower lobe. Follow-up CT of the thorax as clinically directed NOTE: There is a follow-up recommendation in this report. Dictated by: Logan Nelson MD on 04/30/2019 7:15 PM. .
[2019-04-30] MEDS ORDERED: DOXYCYCLINE HYCLATE 100 MG CAPSULE PO ONE (20:10)
== END 2019-04-30 20:56 | disposition home or self-care (01) ==
LOC: ER 17:44
DX: J44.1 Chronic obstructive pulmonary disease with (acute) exacerbation (principal); J18.9 Pneumonia, unspecified organism; Z87.891 Personal history of nicotine dependence; I48.91 Unspecified atrial fibrillation
CPT/HCPCS: 71046; 80053; 84484; 85027; 93005; 93010; 94640; 96374; 99284; J2930